=== PATIENT | female | born 1945 ===

== ENCOUNTER 2016-09-05 09:56 | Inpatient (IN) | payer MEDICAID, OTHER ==
[2016-09-05] MEDS ORDERED: Sodium Chloride 0.9% 1,000 ML IV STA (11:39)
[2016-09-05 12:23] LABS: BASO % 0.2 % (0.0-2.0); HEMATOCRIT 40.2 % (34.0-47.0); LYMPH # 1.4 K/uL (1.0-4.3); LYMPH % 8.4 % (20.0-40.0); MEAN CELL VOLUME 90.9 fl (81.0-99.0); MEAN CORPUSCULAR HEMOGLOBIN 29.5 pg (27.0-31.0); MEAN CORPUSCULAR HGB CONC 32.5 g/dL (33.0-37.0); MEAN PLATELET VOLUME 8.8 fl (7.2-11.7); MONO # 1.3 K/uL (0.0-0.8); MONO % 7.4 % (0.0-10.0); NEUT # 14.5 K/uL (1.8-7.0); NRBC % 0.1 % (0.0-0.0); PLATELET COUNT 185 K/uL (130-400); RED CELL DISTRIBUTION WIDTH 13.8 % (11.5-14.5); WHITE BLOOD COUNT 17.2 K/uL (4.8-10.8)
[2016-09-05 12:31] LABS: ALB/GLOB RATIO 0.9 (1.0-2.1); CALCIUM 9.5 mg/dL (8.4-10.2); POTASSIUM 4.6 MMOL/L (3.6-5.0); TOTAL PROTEIN 7.8 G/DL (6.3-8.2)
--- NOTE | 2016-09-05 12:36 | ED PDOC ---
Syncope/Near Syncope/Dizzyness Time Seen by Provider: 09/05/16 10:28 Chief Complaint (Nursing): Dizziness/Lightheaded Chief Complaint (Provider): Vomiting History Per: Patient History/Exam Limitations: no limitations Onset/Duration Of Symptoms: Hrs Current Symptoms Are (Timing): Still Present Fall Associated With With Symptoms: No Severity: Mild Additional Complaint(s): Patient is a 71 year old female, who has a history of diabetes, presents to the ED complaining of vomiting x2 days. Vomiting is associated with diarrhea, and dizziness. Patient is on insulin and did not take her medication last night. Patient has not check her sugar today or last night. Patient is visiting from [facility] for the week. PMD; none Past Medical History Reviewed: Historical Data, Nursing Documentation, Vital Signs Vital Signs: Last Vital Signs Temp 98 F 09/05/16 10:14 Pulse 66 09/05/16 10:14 Resp 17 09/05/16 10:14 BP 102/50 L 09/05/16 10:14 Pulse Ox 98 09/05/16 10:14 - Medical History PMH: HTN, Hypercholesterolemia - Surgical History Surgical History: No Surg Hx - Family History Family History: States: No Known Family Hx - Home Medications Home Medications: Ambulatory Orders Medication Instructions Recorded Aspirin 100 mg PO DAILY 09/05/16 Atenolol [Tenormin] 100 mg PO HS 09/05/16 Insulin NPH Human Isophane 15 unit SC QPM 09/05/16 [Novolin N] Levothyroxine [Synthroid] 50 mcg PO DAILY 09/05/16 Losartan [Cozaar] 100 mg PO DAILY 09/05/16 Simvastatin [Zocor] 20 mg PO QPM 09/05/16 metFORMIN [glucOPHAGE] 1.5 tab PO BID 09/05/16 - Allergies Allergies/Adverse Reactions: Allergies Allergy/AdvReac Type Severity Reaction Status Date / Time No Known Allergies Allergy Verified 09/05/16 10:14 Review of Systems ROS Statement: Except As Marked, All Systems Reviewed And Found Negative Constitutional: Negative for: Fever Gastrointestinal: Positive for: Vomiting, Diarrhea Neurological: Positive for: Dizziness Physical Exam - Reviewed Nursing Documentation Reviewed: Yes Vital Signs Reviewed: Yes - Physical Exam Appears: Positive for: Well, Non-toxic, No Acute Distress Head Exam: Positive for: ATRAUMATIC, NORMAL INSPECTION, NORMOCEPHALIC Skin: Positive for: Normal Color, Warm, DRY Eye Exam: Positive for: Normal appearance, EOMI Neck: Positive for: Normal, Painless ROM Cardiovascular/Chest: Positive for: Regular Rate, Rhythm. Negative for: Gallop , Murmur Respiratory: Positive for: Normal Breath Sounds. Negative for: Accessory Muscle Use, Rhonchi, Respiratory Distress Extremity: Positive for: Normal ROM Neurologic/Psych: Positive for: Alert, Oriented - Laboratory Results Result Diagrams: 09/08/16 06:40 09/09/16 06:00 - ECG O2 Sat by Pulse Oximetry: 98 (RA) Pulse Ox Interpretation: Normal Medical Decision Making Medical Decision Making: Time: 10:30 Impression: Dehydration v uncontrolled diabetes v Hyperglycemia v r/o DKA v UTI with possible sepsis Plan: ABG VBG EKG UDip CBC IVF Zofran 4 mg IV Blood Culture UA Zosyn IV Scribe Attestation: Documented by Jamil Lutz acting as a scribe for Yu Horvath MD. Scribe Attestation: All medical record entries made by the Scribe were at my direction and personally dictated by me. I have reviewed the chart and agree that the record accurately reflects my personal performance of the history, physical exam, medical decision making, and the department course for this patient. I have also personally directed, reviewed, and agree with the discharge instructions and disposition. Disposition - Clinical Impression Clinical Impression: Acute renal failure, Dehydration, Hyperglycemia due to type 2 diabetes mellitus , Sepsis - Patient ED Disposition Is Patient to be Admitted: Yes Discussed With : Mukund Fontana Doctor Will See Patient In The: ED Counseled Patient/Family Regarding: Studies Performed, Diagnosis - Disposition Disposition Time: 22:08 Condition: FAIR - Pt Status Changed To: Hospital Disposition Of: Inpatient - Admit Certification Admit to Inpatient:: After my assessment, the patient will require hospitalization for at least two midnights. This is because of the severity of symptoms shown, intensity of services needed, and/or the medical risk in this patient being treated as an outpatient. - POA Present On Arrival: Poor Glycemic Control
[2016-09-05 12:53] LABS: ABG ALLEN TEST YES; ARTERIAL BLOOD GAS HCO3 15.8 mmol/L (21-28); ARTERIAL BLOOD GAS PH 7.34 (7.35-7.45); ARTERIAL BLOOD GAS PO2 130 mm/Hg (80-100)
[2016-09-05] MEDS ORDERED: Piperacillin/Tazobact 3.375 GM in Sodium Chloride 0.9% 100 ML IVPB STA (12:56)
[2016-09-05 13:18] LABS: LARGE PLATELETS PRESENT; NEUTROPHIL 67 % (42-75); TOTAL CELLS COUNTED 100
[2016-09-05] MEDS ORDERED: Piperacillin/Tazobact 3.375 gm Inj IVPB ONE (13:35)
[2016-09-05] MEDS ORDERED: Sodium Chloride 0.9% 1,000 ML IV SCH ×2 (15:30→23:45)
--- NOTE | 2016-09-05 17:13 | RAD ---
HISTORY: septic work up COMPARISON: No prior. TECHNIQUE: Chest PA and lateral FINDINGS: LUNGS: . There appears to be some minimal bibasilar atelectasis. PLEURA: No significant pleural effusion identified. No pneumothorax apparent. CARDIOVASCULAR: Normal. OSSEOUS STRUCTURES: Minor multilevel degenerative spondylosis of the thoracic spine VISUALIZED UPPER ABDOMEN: Normal. OTHER FINDINGS: None. IMPRESSION: There appears be minimal bibasilar atelectasis.
--- NOTE | 2016-09-05 17:25 | US ---
PROCEDURE: Ultrasound of the Kidneys HISTORY: acute kidney failure COMPARISON: None available. TECHNIQUE: Sonogram of the kidneys. FINDINGS: RIGHT KIDNEY: Measures: 9.9 x 4.2 x 4.6 cm . Normal in size, contour and echogenicity. No stone, solid mass lesion or hydronephrosis visualized. LEFT KIDNEY: Measures: 9.6 x 3.8 x 4.5 cm. Normal in size, contour and echogenicity. Note is made of a small echogenic focus lower pole left kidney that measures 4.2 x 3.6 x 2.3 mm. This could represent nonobstructing calculus. OTHER FINDINGS: Incidental note made of a large hyperechoic lesion within the right lobe liver of uncertain etiology. . Recommend followup triple phase CT scan of the liver for further evaluation. IMPRESSION: Small echogenic focus lower pole left kidney likely representing a nonobstructing calculus. Large hyperechoic lesion within the right lobe liver Findings discussed with Dr. Fontana at 5:23 p.m. with written down and read back verification.
--- NOTE | 2016-09-05 17:47 | CP.PCM.HP ---
History of Present Illness - History of Present Illness History of Present Illness: 71 yo female with history of DM2 and HTN just arrived from [facility] last Sunday started to have multiple bouts of vomiting and diarrhea since yesterday. Some of her vomitus was positive for a few amounts of blood. She also has been having fever accompanied with diaphoresis and lower abdominal pain. She denied dysuria but has not urinated since yesterday probably because of very poor oral intake. Daughter claimed she was well when she arrived last Sunday. She denied chest pain, SOB or coughing. She was apparently well aside from her diabetes and HTN during her check up about 6 months ago in [facility]. Present on Admission - Present on Admission Any Indicators Present on Admission: No History of DVT/PE: No History of Uncontrolled Diabetes: No Urinary Catheter: No Decubitus Ulcer Present: No Review of Systems - Review of Systems All systems: reviewed and no additional remarkable complaints except (aside from those mentioned above, 12 point system review were negative by me) Past Patient History - Past Social History Smoking Status: Never Smoked Chewing Tobacco Use: No Cigar Use: No Alcohol: None Drugs: Denies Home Situation {Lives}: With Family - CARDIAC Hx Hypercholesterolemia: Yes Hx Hypertension: Yes - ENDOCRINE/METABOLIC Hx Diabetes Mellitus Type 2: Yes - PSYCHIATRIC Hx Substance Use: No - SURGICAL HISTORY Hx Section: Yes - ANESTHESIA Hx Anesthesia: Yes Hx Anesthesia Reactions: No Meds Allergies/Adverse Reactions: Allergies Allergy/AdvReac Type Severity Reaction Status Date / Time No Known Allergies Allergy Verified 09/05/16 10:14 Physical Exam - Constitutional Appears: No Acute Distress - Head Exam Head Exam: ATRAUMATIC - Eye Exam Eye Exam: absent: Scleral icterus - ENT Exam ENT Exam: Mucous Membranes Moist - Neck Exam Neck exam: Negative for: Meningismus - Respiratory Exam Respiratory Exam: absent: Rhonchi, Wheezes, Respiratory Distress - Cardiovascular Exam Cardiovascular Exam: REGULAR RHYTHM, +S1, +S2 - GI/Abdominal Exam GI & Abdominal Exam: Soft, Tenderness (mild/moderate tenderness on lower abdomen ) - Rectal Exam Rectal Exam: Deferred - Extremities Exam Extremities exam: Negative for: pedal edema - Back Exam Back exam: absent: tenderness - Neurological Exam Neurological exam: Alert, Oriented x3 - Psychiatric Exam Psychiatric exam: Normal Affect - Skin Skin Exam: Dry, Intact Results - Vital Signs Recent Vital Signs: Last Vital Signs Temp 99.1 F 09/05/16 17:18 Pulse 63 09/05/16 17:18 Resp 16 09/05/16 17:18 BP 102/50 L 09/05/16 10:14 Pulse Ox 97 09/05/16 17:18 - Labs Result Diagrams: 09/05/16 12:09 09/05/16 12:09 Assessment & Plan (1) Sepsis Status: Acute Comment: admit to telemetry. blood culture, urine culture, stool culture. CXray. Zosyn 2.25gm IV q 8hrs. repeat serum Lactic Acid. ID consult with Dr Herron (2) Dehydration Status: Acute Comment: IV hydration with NSS 250cc/hr (3) Acute renal failure Status: Acute Comment: probably acute on chronic renal failure. Vigorous IV hydration. renal consult with Dr Negron. repeat BMP in am (4) DM2 (diabetes mellitus, type 2) Status: Acute Comment: accuchek ACHS with low Lispro. HgA1C, BMP in am (5) HTN (hypertension) Status: Acute Comment: presently hypotensive because of fluid loss from diarrhea and vomiting. vigorous IV hydration with NSS. hold all BP meds (6) Liver mass, right lobe Status: Acute Comment: r/o malignancy. GI consult with Dr Prado (7) Colitis Status: Acute Comment: CT scan showed mass or wall thickening in the rectum and wall thickening in the hepatic flexure. continue renal dose of Zosyn. GI consult with Dr Prado (8) DVT prophylaxis Status: Acute Comment: venodyne boots while in bed
--- NOTE | 2016-09-05 18:31 | CT ---
PROCEDURE: CT Abdomen and Pelvis without intravenous contrast HISTORY: lower abdominal pain accompanied with fever COMPARISON: Comparison is made to the previous same-day ultrasound of the kidneys. TECHNIQUE: Axial and reformatted coronal and sagittal CT images of the abdomen and pelvis were obtained without IV or oral contrast administration.. Contrast Dose: 0 IV chondral Radiation dose: Total exam DLP = 482.06 mGy-cm. This CT exam was performed using one or more of the following dose reduction techniques: Automated exposure control, adjustment of the mA and/or kV according to patient size, and/or use of iterative reconstruction technique. FINDINGS: LOWER THORAX: 6 millimeter calcified nodule at the right lower lobe. No evidence of acute pathology at the lung bases. LIVER: Large heterogeneous low-attenuation mass lesions in the right liver lobe. The possibility of metastasis in the liver should be considered. GALLBLADDER AND BILE DUCTS: No evidence of acute cholecystitis. PANCREAS: Unremarkable. No gross lesion or ductal dilatation. SPLEEN: Unremarkable. ADRENALS: Unremarkable. No mass. KIDNEYS AND URETERS: Unremarkable. No hydronephrosis. No solid mass. VASCULATURE: Unremarkable. No aortic aneurysm. BOWEL: Suboptimal assessment of the bowel without oral contrast administration. Suspicious for mass lesion or wall thickening in the rectum. There is also suspicious for wall thickening versus incomplete distention at the hepatic flexure. Further assessment of the large bowel by barium enema or colonoscopy is suggested. No evidence of small bowel obstruction. APPENDIX: No evidence of appendicitis. PERITONEUM: Unremarkable. No free fluid. No free air. LYMPH NODES: Unremarkable. No enlarged lymph nodes. BLADDER: Unremarkable. REPRODUCTIVE: Unremarkable. BONES: No acute fracture. OTHER FINDINGS: None. IMPRESSION: Large slightly low-attenuation mass lesions in the right liver lobe suspicious for neoplasm, may represent liver metastasis. Suboptimal assessment of the GI system without oral contrast administration. Suspicious for mass lesion or wall thickening at the rectum and hepatic flexure. Further assessment of the large bowel by barium enema or colonoscopy is suggested. No evidence of nephrolithiasis or hydronephrosis.
[2016-09-05] MEDS: Sodium Chloride 0.9% 1,000 ML IV SCH (22:40)
[2016-09-06] MEDS ORDERED: Sodium Chloride 0.9% 1,000 ML IV SCH (01:00)
[2016-09-06] MEDS: Sodium Chloride 0.9% 1,000 ML IV SCH ×3 (02:25→10:52)
[2016-09-06 06:59] LABS: BASO # 0.1 K/uL (0.0-0.2); BASO % 0.5 % (0.0-2.0); EOS % 0.3 % (0.0-4.0); HEMATOCRIT 36.8 % (34.0-47.0); LYMPH # 1.5 K/uL (1.0-4.3); LYMPH % 12.6 % (20.0-40.0); MEAN CELL VOLUME 91.7 fl (81.0-99.0); MEAN CORPUSCULAR HEMOGLOBIN 29.1 pg (27.0-31.0); MEAN CORPUSCULAR HGB CONC 31.8 g/dL (33.0-37.0); MEAN PLATELET VOLUME 9.3 fl (7.2-11.7); MONO # 1.1 K/uL (0.0-0.8); MONO % 8.9 % (0.0-10.0); NEUT # 9.5 K/uL (1.8-7.0); NEUT % 77.7 % (50.0-75.0); WHITE BLOOD COUNT 12.2 K/uL (4.8-10.8)
[2016-09-06 07:23] LABS: CALCIUM 7.2 mg/dL (8.4-10.2)
[2016-09-06 07:28] LABS: PARTIAL THROMBOPLASTIN TIME 28.5 SECONDS (23.3-32.5)
[2016-09-06 07:37] LABS: THYROID STIMULATING HORMONE 0.69 mIU/ML (0.46-4.68)
--- NOTE | 2016-09-06 11:07 | CP.PCM.CON ---
<Hilda Klein - Last Filed: 09/06/16 11:36> History of Present Illness - History of Present Illness History of Present Illness: This is a GI Consult Note:Dr. Prado CC: diarrhea HPI: Ptis a 71y/o female with history of DM2 and HTN who was admitted to [facility] 09/05/16. Pt was seen and examined at bedside this morning with attending, Pt daugther was present for this evaluation. Per Pt's daughter, pt just arrived from [facility] Sunday started to have multiple bouts of vomiting and diarrhea since yesterday. Some of her vomitus was positive for a few amounts of blood. She also has been having fever accompanied with diaphoresis and lower abdominal pain on Sunday. Daughter is very concerned as pt has not urinated since yesterday. Daughter claimed she was well when she arrived last Sunday. She denied chest pain, SOB or coughing. She was apparently well aside from her diabetes and HTN during her check up about 6 months ago in [facility]. Pt reports having some blood in her stools on and off for about month, denies any history of liver disease or family history of liver disease. Currently she has some mild abdominal pain, other than no other complaints. PMHX: DM2 and hypertension PSHX: Famhx-denies any Family hx of liver diseases, or other GI problems Social- denies smoking, drinking Allergies- NKDA Review of Systems - Review of Systems All systems: reviewed and no additional remarkable complaints except Review of Systems: Review of system: all negative except as stated in HPI Past Patient History - Past Medical History & Family History Past Medical History?: Yes - Past Social History Smoking Status: Never Smoked - CARDIAC Hx Cardiac Disorders: Yes Hx Hypercholesterolemia: Yes Hx Hypertension: Yes - PULMONARY Hx Respiratory Disorders: No - NEUROLOGICAL Hx Neurological Disorder: No - HEENT Hx HEENT Problems: No - RENAL Hx Chronic Kidney Disease: No - ENDOCRINE/METABOLIC Hx Endocrine Disorders: Yes Hx Diabetes Mellitus Type 2: Yes - HEMATOLOGICAL/ONCOLOGICAL Hx Blood Disorders: No Hx AIDS: No Hx Human Immunodeficiency Virus (HIV): No - INTEGUMENTARY Hx Dermatological Problems: No - MUSCULOSKELETAL/RHEUMATOLOGICAL Hx Musculoskeletal Disorders: No Hx Falls: Yes - GASTROINTESTINAL Hx Gastrointestinal Disorders: No - GENITOURINARY/GYNECOLOGICAL Hx Genitourinary Disorders: No - PSYCHIATRIC Hx Psychophysiologic Disorder: No Hx Substance Use: No - SURGICAL HISTORY Hx Surgeries: Yes Hx Section: Yes - ANESTHESIA Hx Anesthesia: Yes Hx Anesthesia Reactions: No Meds Allergies/Adverse Reactions: Allergies Allergy/AdvReac Type Severity Reaction Status Date / Time No Known Allergies Allergy Verified 09/05/16 10:14 - Medications Medications: Current Medications Sodium Chloride (Sodium Chloride 0.9%) 1,000 mls @ 250 mls/hr IV .Q4H [facility] Last Admin: 09/06/16 10:52 Dose: Not Given Piperacillin Sod/Tazobactam (Sod 2.25 gm/ Sodium Chloride) 100 mls @ 100 mls/ hr IVPB Q8 [facility] Last Admin: 09/06/16 10:00 Dose: 100 mls/hr Morphine Sulfate (Morphine) 2 mg IVP Q6 PRN PRN Reason: Pain, moderate (4-7) Ondansetron HCl (Zofran Inj) 4 mg IVP Q6 PRN PRN Reason: Nausea/Vomiting Physical Exam - Constitutional Appears: No Acute Distress - Head Exam Head Exam: NORMOCEPHALIC - Eye Exam Eye Exam: Normal appearance - ENT Exam ENT Exam: Mucous Membranes Moist - Respiratory Exam Respiratory Exam: Clear to Auscultation Bilateral, NORMAL BREATHING PATTERN. absent: Rhonchi, Wheezes - Cardiovascular Exam Cardiovascular Exam: REGULAR RHYTHM, +S1, +S2 - GI/Abdominal Exam GI & Abdominal Exam: Normal Bowel Sounds, Soft, Tenderness - Extremities Exam Extremities exam: Positive for: normal inspection. Negative for: calf tenderness, pedal edema - Neurological Exam Neurological exam: Alert, Oriented x3 Results - Vital Signs Recent Vital Signs: Last Vital Signs Temp 97.5 F L 09/06/16 08:22 Pulse 54 L 09/06/16 08:22 Resp 20 09/06/16 08:22 BP 91/37 L 09/06/16 08:22 Pulse Ox 95 09/06/16 08:22 - Labs Result Diagrams: 09/06/16 05:30 09/06/16 05:30 Labs: Laboratory Results - last 24 hr 09/05/16 09/05/16 09/06/16 16:45 21:58 05:20 WBC RBC Hgb Hct MCV MCH MCHC RDW Plt Count MPV Neut % (Auto) Lymph % (Auto) [place] % (Auto) Eos % (Auto) Baso % (Auto) Neut # Lymph # [place] # Eos # Baso # PT INR APTT Sodium Potassium Chloride Carbon Dioxide Anion Gap BUN Creatinine Est GFR ( Amer) Est GFR (Non-Af Amer) POC Glucose (mg/dL) 103 90 Random Glucose Hemoglobin A1c Lactic Acid 1.6 Calcium TSH 3rd Generation 09/06/16 09/06/16 09/06/16 05:30 05:30 05:30 WBC 12.2 H RBC 4.02 Hgb 11.7 L Hct 36.8 MCV 91.7 MCH 29.1 MCHC 31.8 L RDW 14.0 Plt Count 152 MPV 9.3 Neut % (Auto) 77.7 H Lymph % (Auto) 12.6 L [place] % (Auto) 8.9 Eos % (Auto) 0.3 Baso % (Auto) 0.5 Neut # 9.5 H Lymph # 1.5 [place] # 1.1 H Eos # 0.0 Baso # 0.1 PT 12.4 H INR 1.19 H APTT 28.5 Sodium 136 Potassium 4.0 Chloride 113 H Carbon Dioxide 10 L* D Anion Gap 17 BUN 71 H Creatinine 5.9 H Est GFR ( Amer) 9 Est GFR (Non-Af Amer) 7 POC Glucose (mg/dL) Random Glucose 92 Hemoglobin A1c Lactic Acid Calcium 7.2 L TSH 3rd Generation 0.69 09/06/16 05:30 WBC RBC Hgb Hct MCV MCH MCHC RDW Plt Count MPV Neut % (Auto) Lymph % (Auto) [place] % (Auto) Eos % (Auto) Baso % (Auto) Neut # Lymph # [place] # Eos # Baso # PT INR APTT Sodium Potassium Chloride Carbon Dioxide Anion Gap BUN Creatinine Est GFR ( Amer) Est GFR (Non-Af Amer) POC Glucose (mg/dL) Random Glucose Hemoglobin A1c 7.2 H Lactic Acid Calcium TSH 3rd Generation Assessment & Plan - Assessment and Plan (Free Text) Assessment: Pt is a 71 y/o female history of Non insulin dependent Type II diabetes and Hypertension, admitted for sepsis due to colitis, currently being treated with zosyn, also found to be in MIGUEL, and finding of mass in liver and possible mass/ thickening in rectum and hepatic flexure. GI is consulted for the liver mass and mass/thickening in rectum and hepatic flexure Plan: Mass in the right lobe of the liver first assess for chronic liver disease: hepatitis A, B,C ordered, labs to rule out autoimmune hepatitis ordered (ESAU, anti-smooth muscle, mitochondria AB,immunoglobulin A, G, M) Iron studies to rule out hemochromatosis ordered Ultrasound with doppler to assess portal vein ordered AFP tumor marker ordered Pt will need a 3-phase Ct scan and biopsy of liver,but given pt current medical status and kidney function, we will continue to monitor pt and make decisions as pt progress medically 2. Thickening/Mass in the rectum and hepatic flexure pt will benefit from colonoscopy once she is medically stable once her kidney function improves and pt is medically stable, we will discuss arrangement for colonoscopy 3. Diarrhea f/u stool culture f/u ova and parasite f/u C-diff toxin We will follow along on this case. Thank you for the consult <Roberto Quick - Last Filed: 09/06/16 12:04> Meds - Medications Medications: Current Medications Sodium Chloride (Sodium Chloride 0.9%) 1,000 mls @ 250 mls/hr IV .Q4H [facility] Last Admin: 09/06/16 10:52 Dose: Not Given Piperacillin Sod/Tazobactam (Sod 2.25 gm/ Sodium Chloride) 100 mls @ 100 mls/ hr IVPB Q8 [facility] Last Admin: 09/06/16 10:00 Dose: 100 mls/hr Morphine Sulfate (Morphine) 2 mg IVP Q6 PRN PRN Reason: Pain, moderate (4-7) Ondansetron HCl (Zofran Inj) 4 mg IVP Q6 PRN PRN Reason: Nausea/Vomiting Results - Vital Signs Recent Vital Signs: Last Vital Signs Temp 97.5 F L 09/06/16 08:22 Pulse 54 L 09/06/16 08:22 Resp 20 09/06/16 08:22 BP 91/37 L 09/06/16 08:22 Pulse Ox 95 09/06/16 08:22 - Labs Result Diagrams: 09/06/16 05:30 09/06/16 05:30 Labs: Laboratory Results - last 24 hr 09/05/16 09/05/16 09/06/16 16:45 21:58 05:20 WBC RBC Hgb Hct MCV MCH MCHC RDW Plt Count MPV Neut % (Auto) Lymph % (Auto) [place] % (Auto) Eos % (Auto) Baso % (Auto) Neut # Lymph # [place] # Eos # Baso # PT INR APTT Sodium Potassium Chloride Carbon Dioxide Anion Gap BUN Creatinine Est GFR ( Amer) Est GFR (Non-Af Amer) POC Glucose (mg/dL) 103 90 Random Glucose Hemoglobin A1c Lactic Acid 1.6 Calcium TSH 3rd Generation 09/06/16 09/06/16 09/06/16 05:30 05:30 05:30 WBC 12.2 H RBC 4.02 Hgb 11.7 L Hct 36.8 MCV 91.7 MCH 29.1 MCHC 31.8 L RDW 14.0 Plt Count 152 MPV 9.3 Neut % (Auto) 77.7 H Lymph % (Auto) 12.6 L [place] % (Auto) 8.9 Eos % (Auto) 0.3 Baso % (Auto) 0.5 Neut # 9.5 H Lymph # 1.5 [place] # 1.1 H Eos # 0.0 Baso # 0.1 PT 12.4 H INR 1.19 H APTT 28.5 Sodium 136 Potassium 4.0 Chloride 113 H Carbon Dioxide 10 L* D Anion Gap 17 BUN 71 H Creatinine 5.9 H Est GFR ( Amer) 9 Est GFR (Non-Af Amer) 7 POC Glucose (mg/dL) Random Glucose 92 Hemoglobin A1c Lactic Acid Calcium 7.2 L TSH 3rd Generation 0.69 09/06/16 05:30 WBC RBC Hgb Hct MCV MCH MCHC RDW Plt Count MPV Neut % (Auto) Lymph % (Auto) [place] % (Auto) Eos % (Auto) Baso % (Auto) Neut # Lymph # [place] # Eos # Baso # PT INR APTT Sodium Potassium Chloride Carbon Dioxide Anion Gap BUN Creatinine Est GFR ( Amer) Est GFR (Non-Af Amer) POC Glucose (mg/dL) Random Glucose Hemoglobin A1c 7.2 H Lactic Acid Calcium TSH 3rd Generation Attending/Attestation - Attestation I have personally seen and examined this patient.: Yes I have fully participated in the care of the patient.: Yes I have reviewed all pertinent clinical information: Yes Notes (Text): 09/06/16 11:59 71 year old female with h/o DM, HTN who presents with abdominal pain, diarrhea, and acute renal failure, found to have liver lesions and possible colitis. 1. Liver lesions 2. Diarrhea 3. Abnormal CT scan of the GI tract, colon Plan: -currently the most acute issue is acute renal failure, uncertain etiology -the patient is anuric with worsening acidosis -she is receiving IV fluids at 250 cc an hour and awaiting a nephrology consultation -she doesn't appear to have signs of chronic liver disease to suggest that this could be hepatorenal syndrome, so do not suspect this -await nephrology input -regarding the liver lesions, ddx includes HCC, cholangiocarcinoma, metastatic lesions from colon, and bengin liver lesions like adenoma/FNH -recommend US abdomen with dopplers for now -recommend triple phase CT of liver if able to give contrast later in the hospital course, or alternatively an MRI -may need liver biopsy eventually when medically stable -recommend workup for chronic liver diseases including viral hepatitis and autoimmune serologies -check AFP -check stool studies for infectious causes of diarrhea and colitis -elective colonoscopy or sigmoidoscopy would be recommended to evaluate further , however again, patient is not medically stable for this with acute anuric renal failure and acidosis, so will wait until she is stable -will follow -discussed with the patient and her daughter using slovenian pediatric speech language pathologist
--- NOTE | 2016-09-06 11:42 | CARD ---
APPROVED REPORT EKG Measurement Heart [id number] <Conclusion> Normal sinus rhythm Nonspecific ST and T wave abnormality Abnormal ECG
--- NOTE | 2016-09-06 12:41 | CP.PCM.CON ---
History of Present Illness - History of Present Illness History of Present Illness: This patient who is 71 years old came in with diarrhea [facility] and she was fond to have abnormal kidney function was rising BUN/creatinine for which I was called to see her for further evaluation Daughter stated that she is having severe diarrhea and nausea vomited couple time. Although she is not aware of history of chronic kidney disease and she is diabetic for a long time and she take insulin and among other medications Past medical history as noted diabetes mellitus Review of Systems - Constitutional Constitutional: As Per HPI - EENT Eyes: As Per HPI - Cardiovascular Cardiovascular: absent: Chest Pain, Dyspnea, Leg Edema, Syncope - Respiratory Respiratory: absent: Cough, Hemoptysis, Dyspnea on Exertion - Gastrointestinal Gastrointestinal: Abdominal Pain, Diarrhea, Nausea, Vomiting - Genitourinary Genitourinary: As Per HPI, Other - Musculoskeletal Musculoskeletal: Muscle Weakness - Neurological Neurological: As Per HPI - Psychiatric Psychiatric: As Per HPI - Endocrine Endocrine: As Per HPI - Hematologic/Lymphatic Hematologic: As Per HPI Past Patient History - Past Medical History & Family History Past Medical History?: Yes - Past Social History Smoking Status: Never Smoked - CARDIAC Hx Cardiac Disorders: Yes Hx Hypercholesterolemia: Yes Hx Hypertension: Yes - PULMONARY Hx Respiratory Disorders: No - NEUROLOGICAL Hx Neurological Disorder: No - HEENT Hx HEENT Problems: No - RENAL Hx Chronic Kidney Disease: No - ENDOCRINE/METABOLIC Hx Endocrine Disorders: Yes Hx Diabetes Mellitus Type 2: Yes - HEMATOLOGICAL/ONCOLOGICAL Hx Blood Disorders: No Hx AIDS: No Hx Human Immunodeficiency Virus (HIV): No - INTEGUMENTARY Hx Dermatological Problems: No - MUSCULOSKELETAL/RHEUMATOLOGICAL Hx Musculoskeletal Disorders: No Hx Falls: Yes - GASTROINTESTINAL Hx Gastrointestinal Disorders: No - GENITOURINARY/GYNECOLOGICAL Hx Genitourinary Disorders: No - PSYCHIATRIC Hx Psychophysiologic Disorder: No Hx Substance Use: No - SURGICAL HISTORY Hx Surgeries: Yes Hx Section: Yes - ANESTHESIA Hx Anesthesia: Yes Hx Anesthesia Reactions: No Meds Allergies/Adverse Reactions: Allergies Allergy/AdvReac Type Severity Reaction Status Date / Time No Known Allergies Allergy Verified 09/05/16 10:14 - Medications Medications: Current Medications Sodium Chloride (Sodium Chloride 0.9%) 1,000 mls @ 250 mls/hr IV .Q4H [facility] Last Admin: 09/06/16 10:52 Dose: Not Given Piperacillin Sod/Tazobactam (Sod 2.25 gm/ Sodium Chloride) 100 mls @ 100 mls/ hr IVPB Q8 [facility] Last Admin: 09/06/16 10:00 Dose: 100 mls/hr Sodium Bicarbonate 44.6 meq/ (Dextrose/Sodium Chloride) 1,044.6 mls @ 250 mls/ hr IV .Q4H11M [facility] Stop: 09/07/16 12:30 Morphine Sulfate (Morphine) 2 mg IVP Q6 PRN PRN Reason: Pain, moderate (4-7) Ondansetron HCl (Zofran Inj) 4 mg IVP Q6 PRN PRN Reason: Nausea/Vomiting Physical Exam - Constitutional Appears: No Acute Distress - Eye Exam Eye Exam: Normal appearance - ENT Exam ENT Exam: Mucous Membranes Dry - Respiratory Exam Respiratory Exam: NORMAL BREATHING PATTERN. absent: Chest Wall Tenderness - Cardiovascular Exam Cardiovascular Exam: REGULAR RHYTHM. absent: Rubs - GI/Abdominal Exam GI & Abdominal Exam: Normal Bowel Sounds - Extremities Exam Extremities exam: Negative for: calf tenderness - Back Exam Back exam: absent: CVA tenderness (L), CVA tenderness (R) - Neurological Exam Neurological exam: Alert Results - Vital Signs Recent Vital Signs: Last Vital Signs Temp 97.5 F L 09/06/16 08:22 Pulse 54 L 09/06/16 08:22 Resp 20 09/06/16 08:22 BP 91/37 L 09/06/16 08:22 Pulse Ox 95 09/06/16 08:22 - Labs Result Diagrams: 09/06/16 05:30 09/06/16 05:30 Labs: Laboratory Results - last 24 hr 09/05/16 09/05/16 09/06/16 16:45 21:58 05:20 WBC RBC Hgb Hct MCV MCH MCHC RDW Plt Count MPV Neut % (Auto) Lymph % (Auto) [place] % (Auto) Eos % (Auto) Baso % (Auto) Neut # Lymph # [place] # Eos # Baso # PT INR APTT Sodium Potassium Chloride Carbon Dioxide Anion Gap BUN Creatinine Est GFR ( Amer) Est GFR (Non-Af Amer) POC Glucose (mg/dL) 103 90 Random Glucose Hemoglobin A1c Lactic Acid 1.6 Calcium TSH 3rd Generation 09/06/16 09/06/16 09/06/16 05:30 05:30 05:30 WBC 12.2 H RBC 4.02 Hgb 11.7 L Hct 36.8 MCV 91.7 MCH 29.1 MCHC 31.8 L RDW 14.0 Plt Count 152 MPV 9.3 Neut % (Auto) 77.7 H Lymph % (Auto) 12.6 L [place] % (Auto) 8.9 Eos % (Auto) 0.3 Baso % (Auto) 0.5 Neut # 9.5 H Lymph # 1.5 [place] # 1.1 H Eos # 0.0 Baso # 0.1 PT 12.4 H INR 1.19 H APTT 28.5 Sodium 136 Potassium 4.0 Chloride 113 H Carbon Dioxide 10 L* D Anion Gap 17 BUN 71 H Creatinine 5.9 H Est GFR ( Amer) 9 Est GFR (Non-Af Amer) 7 POC Glucose (mg/dL) Random Glucose 92 Hemoglobin A1c Lactic Acid Calcium 7.2 L TSH 3rd Generation 0.69 09/06/16 05:30 WBC RBC Hgb Hct MCV MCH MCHC RDW Plt Count MPV Neut % (Auto) Lymph % (Auto) [place] % (Auto) Eos % (Auto) Baso % (Auto) Neut # Lymph # [place] # Eos # Baso # PT INR APTT Sodium Potassium Chloride Carbon Dioxide Anion Gap BUN Creatinine Est GFR ( Amer) Est GFR (Non-Af Amer) POC Glucose (mg/dL) Random Glucose Hemoglobin A1c 7.2 H Lactic Acid Calcium TSH 3rd Generation Assessment & Plan (1) Acute renal failure Assessment and Plan: It appeared that she has acute kidney failure probably from severe hypovolemia patient still hypovolemic and Metabolic acidosis Patient to continue with hydration she will need D5 half-normal saline with 1 amp of sodium bicarbonate at 250 mL/h 2. Alfaro catheter to see if there is a urine and urinalysis stat CAT scan of the abdomen showed possible malignancy in the liver also in the colon If kidney function is continued to deteriorate we will do dialysis perhaps by tomorrow Continue monitoring electrolytes and kidney function closely I ordered a stat Spot urine for sodium osmolality and creatinine Status: Acute
--- NOTE | 2016-09-06 12:44 | CP.PCM.CON ---
History of Present Illness - History of Present Illness History of Present Illness: 71 yo female with history of DM2 and HTN just arrived from [facility] last Sunday started to have multiple bouts of vomiting and diarrhea since yesterday.. She also has been having fever accompanied with diaphoresis and lower abdominal pain. She denied dysuria PMH + HTN + DMII Review of Systems - Constitutional Constitutional: As Per HPI - EENT Eyes: absent: As Per HPI, Blind Spots, Blurred Vision, Change in Vision, Decreased Night Vision, Diplopia, Discharge, Dry Eye, Exophthalmos, Floaters, Irritation, Itchy Eyes, Loss of Peripheral Vision, Pain, Photophobia, Requires Corrective Lenses, Sees Flashes, Spots in Vision, Tunnel Vision, Other Visual Disturbances, Loss of Vision, Other Ears: absent: As Per HPI, Decreased Hearing, Ear Discharge, Ear Pain, Tinnitus, Abnormal Hearing, Disequilibrium, Dizziness, Other Nose/Mouth/Throat: absent: As Per HPI, Epistaxis, Nasal Congestion, Nasal Discharge, Nasal Obstruction, Nasal Trauma, Nose Pain, Post Nasal Drip, Sinus Pain, Sinus Pressure, Bleeding Gums, Change in Voice, Dental Pain, Dry Mouth, Dysphagia, Halitosis, Hoarsness, Lip Swelling, Mouth Lesions, Mouth Pain, Odynophagia, Sore Throat, Throat Swelling, Tongue Swelling, Facial Pain, Neck Pain, Neck Mass, Other - Breasts Breasts: absent: As Per HPI, Change in Shape, Mass, Pain, Nipple Discharge, Nipple Inversion, Skin Changes, Swelling, Other - Cardiovascular Cardiovascular: absent: As Per HPI, Acrocyanosis, Chest Pain, Chest Pain at Rest , Chest Pain with Activity, Claudication, Diaphoresis, Dyspnea, Dyspnea on Exertion, Edema, Irregular Heart Rhythm, Pain Radiating to Arm/Neck/Jaw, Leg Edema, Leg Ulcers, Lightheadedness, Orthopnea, Palpitations, Paroxysmal Nocturnal Dyspnea, Pedal Edema, Radiating Pain, Rapid Heart Rate, Slow Heart Rate, Syncope, Other - Respiratory Respiratory: absent: As Per HPI, Cough, Dyspnea, Hemoptysis, Dyspnea on Exertion , Wheezing, Snoring, Stridor, Pain on Inspiration, Chest Congestion, Excessive Mucous Production, Change in Mucous Color, Pain with Coughing, Other - Gastrointestinal Gastrointestinal: As Per HPI - Genitourinary Genitourinary: As Per HPI - Reproductive: Female Reproductive:Female: absent: As Per HPI, Amenorrhea, Amenorrhea/ Control, Currently Menstual, Cycle <21 Days, Cycle >35 Days, Cycle Variable, Menses 1-7 Days, Menses >/= 8 Days, Menses Variable, Cycle > 4 Weeks Between, No Menses for 6 Months, Heavy Menses, Light Menses, Normal Menses, Spotting Between Cycles , S/P Hysterectomy, Menopausal, Post Menopausal, Premenarche, Abnormal Vaginal Bleeding, Dysmenorrhea, Dyspareunia, Genital Lesions, Genital Pruritis, Pelvic Pain, Prolapse Symptoms, Sexual Dysfunction, Vaginal Discharge, Vaginal Dryness , Vaginal Odor, Vaginal Pruritis, Other - Menstruation Menstruation: absent: As Per HPI, Amenorrhea, Amenorrhea/ Control, Currently Menstual, Cycle <21 Days, Cycle >35 Days, Cycle Variable, Menses 1-7 Days, Menses >/= 8 Days, Menses Variable, Cycle > 4 Weeks Between, No Menses for 6 Months, Heavy Menses, Light Menses, Normal Menses, Spotting Between Cycles , S/P Hysterectomy, Menopausal, Post Menopausal, Premenarche, Abnormal Vaginal Bleeding, Dysmenorrhea, Other - Musculoskeletal Musculoskeletal: absent: As Per HPI, Abnormal Gait, Arthralgias, Atrophy, Back Pain, Deformity, Joint Swelling, Limited Range of Motion, Loss of Height, Muscle Cramps, Muscle Weakness, Myalgias, Neck Pain, Numbness, Radiating Pain into Limb, Stiffness, Tingling, Other - Integumentary Integumentary: absent: As Per HPI, Acne, Alopecia, Bleeding Lesions, Change in Hair, Change in Nails, Change in Pigmentation, Changing Lesions, Dry Skin, Erythema, Furuncle, Hirsutism, Lesions, New Lesions, Non-Healing Lesions, Photosensitivity, Pruritus, Rash, Skin Pain, Skin Ulcer, Sores, Striae, Swelling , Unusual Bruising, Wounds, Jaundice, Other - Neurological Neurological: absent: As Per HPI, Abnormal Gait, Abnormal Hearing, Abnormal Movements, Abnormal Speech, Behavioral Changes, Burning Sensations, Confusion, Convulsions, Disequilibrium, Dizziness, Numbness, Focal Weakness, Frequent Falls , Headaches, Lack of Coordination, Loss of Vision, Memory Loss, Paresthesias, Radicular Pain, Restless Legs, Sensory Deficit, Syncope, Tingling, Tremor, Vertigo, Weakness, Other Visual Disturbances, Other - Psychiatric Psychiatric: absent: As Per HPI, Abnormal Sleep Pattern, Anhedonia, Anxiety, Auditory Hallucinations, Behavioral Changes, Change in Appetite, Change in Libido, Confusion, Depression, Difficulty Concentrating, Hallucinations, Homicidal Ideation, Hopelessness, Irritability, Memory Loss, Mood Swings, Panic Attacks, Paranoia, Suicidal Ideation, Visual Hallucinations, Tactile Hallucinations, Other - Endocrine Endocrine: absent: As Per HPI, Change in Body Appearance, Change in Libido, Cold Intolorance, Deepening of Voice, Excessive Sweating, Fatigue, Flushing, Heat Intolorance, Increase in Ring/Shoe/Hat Size, Palpitations, Polydipsia, Polyphagia, Polyuria, Other - Hematologic/Lymphatic Hematologic: absent: As Per HPI, Easy Bleeding, Easy Bruising, Lymphadenopathy, Other Past Patient History - Past Medical History & Family History Past Medical History?: Yes - Past Social History Smoking Status: Never Smoked - CARDIAC Hx Cardiac Disorders: Yes Hx Hypercholesterolemia: Yes Hx Hypertension: Yes - PULMONARY Hx Respiratory Disorders: No - NEUROLOGICAL Hx Neurological Disorder: No - HEENT Hx HEENT Problems: No - RENAL Hx Chronic Kidney Disease: No - ENDOCRINE/METABOLIC Hx Endocrine Disorders: Yes Hx Diabetes Mellitus Type 2: Yes - HEMATOLOGICAL/ONCOLOGICAL Hx Blood Disorders: No Hx AIDS: No Hx Human Immunodeficiency Virus (HIV): No - INTEGUMENTARY Hx Dermatological Problems: No - MUSCULOSKELETAL/RHEUMATOLOGICAL Hx Musculoskeletal Disorders: No Hx Falls: Yes - GASTROINTESTINAL Hx Gastrointestinal Disorders: No - GENITOURINARY/GYNECOLOGICAL Hx Genitourinary Disorders: No - PSYCHIATRIC Hx Psychophysiologic Disorder: No Hx Substance Use: No - SURGICAL HISTORY Hx Surgeries: Yes Hx Section: Yes - ANESTHESIA Hx Anesthesia: Yes Hx Anesthesia Reactions: No Meds Allergies/Adverse Reactions: Allergies Allergy/AdvReac Type Severity Reaction Status Date / Time No Known Allergies Allergy Verified 09/05/16 10:14 - Medications Medications: Current Medications Sodium Chloride (Sodium Chloride 0.9%) 1,000 mls @ 250 mls/hr IV .Q4H [facility] Last Admin: 09/06/16 10:52 Dose: Not Given Piperacillin Sod/Tazobactam (Sod 2.25 gm/ Sodium Chloride) 100 mls @ 100 mls/ hr IVPB Q8 [facility] Last Admin: 09/06/16 10:00 Dose: 100 mls/hr Sodium Bicarbonate 44.6 meq/ (Dextrose/Sodium Chloride) 1,044.6 mls @ 250 mls/ hr IV .Q4H11M [facility] Stop: 09/07/16 12:30 Morphine Sulfate (Morphine) 2 mg IVP Q6 PRN PRN Reason: Pain, moderate (4-7) Ondansetron HCl (Zofran Inj) 4 mg IVP Q6 PRN PRN Reason: Nausea/Vomiting Physical Exam - Constitutional Appears: Non-toxic, Chronically Ill - Head Exam Head Exam: NORMOCEPHALIC - Eye Exam Eye Exam: PERRL. absent: Scleral icterus - ENT Exam ENT Exam: Mucous Membranes Dry, Normal External Ear Exam, Normal Oropharynx - Neck Exam Neck exam: Negative for: Lymphadenopathy, Thyromegaly - Respiratory Exam Respiratory Exam: Decreased Breath Sounds, Clear to Auscultation Bilateral - Cardiovascular Exam Cardiovascular Exam: REGULAR RHYTHM, +S1, +S2 - GI/Abdominal Exam GI & Abdominal Exam: Diminished Bowel Sounds, Distended, Soft. absent: Rebound , Rigid, Tenderness - Rectal Exam Rectal Exam: Deferred - Exam Exam: NORMAL INSPECTION - Extremities Exam Extremities exam: Positive for: pedal edema, pedal pulses present. Negative for : calf tenderness, tenderness - Back Exam Back exam: absent: CVA tenderness (L), CVA tenderness (R) - Neurological Exam Neurological exam: Alert, CN II-XII Intact - Psychiatric Exam Psychiatric exam: Depressed - Skin Skin Exam: Dry Results - Vital Signs Recent Vital Signs: Last Vital Signs Temp 97.5 F L 09/06/16 08:22 Pulse 54 L 09/06/16 08:22 Resp 20 09/06/16 08:22 BP 91/37 L 09/06/16 08:22 Pulse Ox 95 09/06/16 08:22 - Labs Result Diagrams: 09/06/16 05:30 09/06/16 05:30 Labs: Laboratory Results - last 24 hr 09/05/16 09/05/16 09/06/16 16:45 21:58 05:20 WBC RBC Hgb Hct MCV MCH MCHC RDW Plt Count MPV Neut % (Auto) Lymph % (Auto) [place] % (Auto) Eos % (Auto) Baso % (Auto) Neut # Lymph # [place] # Eos # Baso # PT INR APTT Sodium Potassium Chloride Carbon Dioxide Anion Gap BUN Creatinine Est GFR ( Amer) Est GFR (Non-Af Amer) POC Glucose (mg/dL) 103 90 Random Glucose Hemoglobin A1c Lactic Acid 1.6 Calcium TSH 3rd Generation 09/06/16 09/06/16 09/06/16 05:30 05:30 05:30 WBC 12.2 H RBC 4.02 Hgb 11.7 L Hct 36.8 MCV 91.7 MCH 29.1 MCHC 31.8 L RDW 14.0 Plt Count 152 MPV 9.3 Neut % (Auto) 77.7 H Lymph % (Auto) 12.6 L [place] % (Auto) 8.9 Eos % (Auto) 0.3 Baso % (Auto) 0.5 Neut # 9.5 H Lymph # 1.5 [place] # 1.1 H Eos # 0.0 Baso # 0.1 PT 12.4 H INR 1.19 H APTT 28.5 Sodium 136 Potassium 4.0 Chloride 113 H Carbon Dioxide 10 L* D Anion Gap 17 BUN 71 H Creatinine 5.9 H Est GFR ( Amer) 9 Est GFR (Non-Af Amer) 7 POC Glucose (mg/dL) Random Glucose 92 Hemoglobin A1c Lactic Acid Calcium 7.2 L TSH 3rd Generation 0.69 09/06/16 05:30 WBC RBC Hgb Hct MCV MCH MCHC RDW Plt Count MPV Neut % (Auto) Lymph % (Auto) [place] % (Auto) Eos % (Auto) Baso % (Auto) Neut # Lymph # [place] # Eos # Baso # PT INR APTT Sodium Potassium Chloride Carbon Dioxide Anion Gap BUN Creatinine Est GFR ( Amer) Est GFR (Non-Af Amer) POC Glucose (mg/dL) Random Glucose Hemoglobin A1c 7.2 H Lactic Acid Calcium TSH 3rd Generation Assessment & Plan (1) Acute renal failure Status: Acute (2) Colitis Status: Acute (3) DM2 (diabetes mellitus, type 2) Status: Acute (4) Dehydration Status: Acute (5) HTN (hypertension) Status: Acute (6) Liver mass, right lobe Status: Acute (7) Sepsis Status: Acute - Assessment and Plan (Free Text) Assessment: COLITIS WITH SEVERE DEHYDRATIION AND ATN PICTURE AWAIT CULTURES CONT EMPIRIC RX
--- NOTE | 2016-09-06 13:08 | US ---
HISTORY: liver lesions, r/o pv thrombosis COMPARISON: September 05, 2016. CT abdomen and pelvis. Summary of findings on the comparison examination: Large low-attenuation mass right hepatic lobe. September 05, 2016. Renal ultrasound TECHNIQUE: Sonographic evaluation of the abdomen. FINDINGS: LIVER: Measures 15 cm. Variable, of heterogeneous echogenicity of the liver parenchyma. Patent portal venous system without evidence of portal vein thrombosis. For 6.3 x 5.8 x 7.2 cm well-circumscribed solid mass right hepatic lobe corresponding to findings on recent imaging studies. Adjacent mass in the right hepatic lobe 4.1 x 4.2 cm. GALLBLADDER: Unremarkable. No gallstones. COMMON BILE DUCT: Measures 2.0 mm. No stones. No dilatation. PANCREAS: Unremarkable as visualized. Portions of the tail and body obscured by overlying bowel gas. RIGHT KIDNEY: Measures 4.9 x 10.7cm. Normal echogenicity. No calculus, mass, or hydronephrosis. LEFT KIDNEY: Measures 4.6 x 10.1cm. Midpole echogenic focus 2 x 4 mm consistent with nonobstructing calculus. Finding not apparent on the recent CT scan. SPLEEN: Normal in size and contour. No mass. AORTA: No aneurysmal dilatation. IVC: Unremarkable. OTHER FINDINGS: None. IMPRESSION: Hepatic masses (2) right hepatic lobe. Tumor should be considered the most likely possibility. Patent portal vein without evidence of portal vein thrombosis. Additional benign and/or incidental findings described above.
[2016-09-06 13:11] LABS: IRON 20 ug/dL (37-170)
[2016-09-06] MEDS: [UNRECOGNIZED DRUG - OTHER] IV SCH ×3 (13:32→19:37)
[2016-09-06] MEDS: SODIUM BICARBONATE IV SCH ×3 (13:32→19:37)
[2016-09-06] MEDS: DEXTROSE IV SCH ×3 (13:32→19:37)
[2016-09-06 16:55] LABS: CALCIUM 7.3 mg/dL (8.4-10.2); POTASSIUM 4.7 MMOL/L (3.6-5.0)
[2016-09-06 17:06] LABS: TROPONIN I 0.034 ng/mL (0.00-0.120)
[2016-09-06 17:17] LABS: IMMUNOGLOBULIN G 821.8 mg/dL (700.0-1600.0)
[2016-09-06 17:19] LABS: IMMUNOGLOBULIN A 327.8 mg/dL (70.0-400.0)
[2016-09-06 17:40] LABS: RBC URINE 3 /hpf (0-3); URINE BACTERIA OCC (<OCC); URINE BILIRUBIN NEGATIVE (NEGATIVE); URINE BLOOD SMALL (NEGATIVE); URINE COLOR YELLOW (YELLOW); URINE GLUCOSE (UA) NEG (Normal); URINE KETONE NEGATIVE (NEGATIVE); URINE LEUKOCYTE ESTERASE NEG Leu/uL (Negative); URINE PROTEIN 30 mg/dL (NEGATIVE); URINE UROBILINOGEN 0.2-1.0 mg/dL (0.2-1.0); WBC CLUMPS FEW /hpf; WBC URINE 7 /hpf (0-5)
--- NOTE | 2016-09-06 18:13 | CP.PCM.PN ---
Subjective - Date & Time of Evaluation Date of Evaluation: 09/06/16 Time of Evaluation: 13:00 - Subjective Subjective: Pt seen and examined. Complained of left sided chest pain which was relieved with SL NTG. Was able to put out some clear urine via quintana catheter. Objective - Vital Signs/Intake and Output Vital Signs (last 24 hours): Temp Pulse Resp BP Pulse Ox 97.4 F L 52 L 18 93/53 L 92 L 09/06/16 15:40 09/06/16 15:40 09/06/16 15:40 09/06/16 15:40 09/06/16 15:40 - Medications Medications: Current Medications Piperacillin Sod/Tazobactam (Sod 2.25 gm/ Sodium Chloride) 100 mls @ 100 mls/ hr IVPB Q8 [facility] Last Admin: 09/06/16 16:22 Dose: 100 mls/hr Sodium Bicarbonate 44.6 meq/ (Dextrose/Sodium Chloride) 1,044.6 mls @ 125 mls/ hr IV .Q8H22M [facility] Stop: 09/07/16 12:30 Morphine Sulfate (Morphine) 2 mg IVP Q6 PRN PRN Reason: Pain, moderate (4-7) Ondansetron HCl (Zofran Inj) 4 mg IVP Q6 PRN PRN Reason: Nausea/Vomiting - Labs Labs: 09/06/16 05:30 09/06/16 16:33 PT 12.4 SECONDS (9.6-11.2) H 09/06/16 05:30 INR 1.19 (0.92-1.08) H 09/06/16 05:30 APTT 28.5 SECONDS (23.3-32.5) 09/06/16 05:30 - Constitutional Appears: No Acute Distress - Head Exam Head Exam: ATRAUMATIC - Eye Exam Eye Exam: absent: Scleral icterus - ENT Exam ENT Exam: Mucous Membranes Moist - Neck Exam Neck Exam: absent: Meningismus - Respiratory Exam Respiratory Exam: absent: Rhonchi, Wheezes, Respiratory Distress - Cardiovascular Exam Cardiovascular Exam: REGULAR RHYTHM, +S1, +S2 - GI/Abdominal Exam GI & Abdominal Exam: Soft. absent: Tenderness - Rectal Exam Rectal Exam: Deferred - Extremities Exam Extremities Exam: absent: Pedal Edema - Neurological Exam Neurological Exam: Alert, Oriented x3 - Psychiatric Exam Psychiatric exam: Normal Affect - Skin Skin Exam: Dry, Intact Assessment and Plan (1) Sepsis Status: Acute (2) Dehydration Status: Acute (3) Acute renal failure Status: Acute (4) DM2 (diabetes mellitus, type 2) Status: Acute (5) HTN (hypertension) Status: Acute (6) Liver mass, right lobe Status: Acute (7) Colitis Status: Acute (8) DVT prophylaxis Status: Acute - Assessment and Plan (Free Text) Assessment: 71 yo female with history of DM2 and HTN admitted just 2 days after arriving from [facility] because of vomiting and diarrhea accompanied with fever and diaphoresis. (1) Sepsis probably secondary to colitis continue Zosyn 2.25gm IV q 8hrs. repeat serum Lactic Acid: 1.[address] Herron (2) Dehydration continue IV hydration BUN/Creat: 77/6.2 (worse than yesterday) (3) Acute renal failure renal consult with Dr Valles appreciated pt may need dialysis with worsening renal function renal sonogram: negative for hydronephrosis (4) DM2 (diabetes mellitus, type 2) BS relatively controlled as patient has not been eating accuchek ACHS with low Lispro. HgA1C: 7.2 (5) HTN (hypertension) BP on the low side because of volume depletion continue hold on all BP meds (6) Liver mass, right lobe r/o malignancy 2 masses on right lobe GI consult with Dr Prado may need percutaneous biopsy (7) Colitis CT scan showed mass or wall thickening in the rectum and wall thickening in the hepatic flexure. continue renal dose of Zosyn. (8) DVT prophylaxis venodyne boots while in bed avoid anticoagulant as patient mentioned some blood on vomitus and stools recently
[2016-09-07] MEDS: [UNRECOGNIZED DRUG - OTHER] IV SCH ×2 (03:08→12:18)
[2016-09-07] MEDS: DEXTROSE IV SCH ×2 (03:08→12:18)
[2016-09-07] MEDS: SODIUM BICARBONATE IV SCH ×2 (03:08→12:18)
--- NOTE | 2016-09-07 09:15 | CP.PCM.PN ---
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 She made about over 900 mL overnight of urine. No nausea no vomiting appetite is good Chest clear heart no rubs Abdomen soft Extremity no edema Impression and plan Acute renal failure probably from dehydration? The urine test noted to have yeast suggestive of fungus urine infection therefore I suggest ID consult for treatment to be discussed with the primary care physician BMP still pending from this morning waiting to follow-up on the BUN/creatinine and CO2 and the electrolyte. And meantime continue IV fluid 1 25 mL/h with 1 amp. of sodium bicarbonate till co2 come up. I ordered a stat BMP now and phosphorus eosinophils in the urine and serum uric acid and CPK Objective - Vital Signs/Intake and Output Vital Signs (last 24 hours): Temp Pulse Resp BP Pulse Ox 98.3 F 46 L 18 95/49 L 96 09/07/16 08:15 09/07/16 08:15 09/07/16 08:15 09/07/16 08:15 09/07/16 08:15 Intake and Output: 09/07/16 09/07/16 06:59 18:59 Intake Total 1320 Output Total 1150 Balance 170 - Medications Medications: Current Medications Piperacillin Sod/Tazobactam (Sod 2.25 gm/ Sodium Chloride) 100 mls @ 100 mls/ hr IVPB Q8 [facility] Last Admin: 09/07/16 08:22 Dose: 100 mls/hr Sodium Bicarbonate 44.6 meq/ (Dextrose/Sodium Chloride) 1,044.6 mls @ 125 mls/ hr IV .Q8H22M [facility] Stop: 09/07/16 12:30 Last Admin: 09/07/16 03:08 Dose: 125 mls/hr Morphine Sulfate (Morphine) 2 mg IVP Q6 PRN PRN Reason: Pain, moderate (4-7) Ondansetron HCl (Zofran Inj) 4 mg IVP Q6 PRN PRN Reason: Nausea/Vomiting Sodium Bicarbonate (Sodium Bicarbonate Tab) 650 mg PO Q8 [facility] - Labs Labs: 09/06/16 05:30 09/06/16 16:33 PT 12.4 SECONDS (9.6-11.2) H 09/06/16 05:30 INR 1.19 (0.92-1.08) H 09/06/16 05:30 APTT 28.5 SECONDS (23.3-32.5) 09/06/16 05:30 Assessment and Plan (1) Acute renal failure Status: Acute
--- NOTE | 2016-09-07 09:43 | CP.PCM.PN ---
<Hilda Klein - Last Filed: 09/07/16 09:45> Subjective - Date & Time of Evaluation Date of Evaluation: 09/07/16 Time of Evaluation: 09:00 - Subjective Subjective: Pt seen and examined at bedside, does not have any new complaints, still having diarrhea, making some urine as well. reviewed nurses note. still have some abdominal pain, denies chest pain, sob, dizziness, nausea or vomiting Objective - Vital Signs/Intake and Output Vital Signs (last 24 hours): Temp Pulse Resp BP Pulse Ox 98.3 F 46 L 18 95/49 L 96 09/07/16 08:15 09/07/16 08:15 09/07/16 08:15 09/07/16 08:15 09/07/16 08:15 Intake and Output: 09/07/16 09/07/16 06:59 18:59 Intake Total 1320 Output Total 1150 Balance 170 - Medications Medications: Current Medications Piperacillin Sod/Tazobactam (Sod 2.25 gm/ Sodium Chloride) 100 mls @ 100 mls/ hr IVPB Q8 [facility] Last Admin: 09/07/16 08:22 Dose: 100 mls/hr Sodium Bicarbonate 44.6 meq/ (Dextrose/Sodium Chloride) 1,044.6 mls @ 125 mls/ hr IV .Q8H22M [facility] Stop: 09/07/16 12:30 Last Admin: 09/07/16 03:08 Dose: 125 mls/hr Morphine Sulfate (Morphine) 2 mg IVP Q6 PRN PRN Reason: Pain, moderate (4-7) Ondansetron HCl (Zofran Inj) 4 mg IVP Q6 PRN PRN Reason: Nausea/Vomiting Sodium Bicarbonate (Sodium Bicarbonate Tab) 650 mg PO Q8 [facility] - Labs Labs: 09/06/16 05:30 09/06/16 16:33 PT 12.4 SECONDS (9.6-11.2) H 09/06/16 05:30 INR 1.19 (0.92-1.08) H 09/06/16 05:30 APTT 28.5 SECONDS (23.3-32.5) 09/06/16 05:30 - Constitutional Appears: Non-toxic, No Acute Distress - Head Exam Head Exam: NORMOCEPHALIC - Eye Exam Eye Exam: Normal appearance, PERRL - ENT Exam ENT Exam: Mucous Membranes Moist - Respiratory Exam Respiratory Exam: Clear to Ausculation Bilateral, NORMAL BREATHING PATTERN. absent: Rhonchi, Wheezes - Cardiovascular Exam Cardiovascular Exam: REGULAR RHYTHM, +S1, +S2 - GI/Abdominal Exam GI & Abdominal Exam: Soft Additional comments: mild tenderness on deep palpation - Extremities Exam Extremities Exam: Normal Inspection. absent: Calf Tenderness, Pedal Edema - Neurological Exam Neurological Exam: Alert, Awake, Oriented x3 Assessment and Plan - Assessment and Plan (Free Text) Assessment: 71 year old female with h/o DM, HTN who presents with abdominal pain, diarrhea, and acute renal failure, found to have liver lesions and possible colitis. Plan: 1. Liver lesions 2. Diarrhea 3. Abnormal CT scan of the GI tract, colon Plan: -currently the most acute issue is acute renal failure, nephrology following, BMP for this morning resulting still pending, unsure of how CO2, BUN/Cr has improved from yesterday -the patient is now making some urine -she is receiving IV fluids at 125 cc an hour -she doesn't appear to have signs of chronic liver disease to suggest that this could be hepatorenal syndrome, so do not suspect this -regarding the liver lesions, ddx includes HCC, cholangiocarcinoma, metastatic lesions from colon, and bengin liver lesions like adenoma/FNH -US abdomen with dopplers does not show any evidence of portal vein thrombosis -recommend triple phase CT of liver if able to give contrast later in the hospital course, or alternatively an MRI -may need liver biopsy eventually when medically stable -Hepatitis B and C negative, IgG 821, IgA 327, IgM 80 -f/u AFP -stool studies for infectious causes of diarrhea and colitis still pending -elective colonoscopy or sigmoidoscopy would be recommended to evaluate further , however again, patient is not medically stable for this with acute renal failure and acidosis, so will wait until she is stable -will follow <Janina Prado MD - Last Filed: 09/07/16 16:42> Objective - Vital Signs/Intake and Output Vital Signs (last 24 hours): Temp Pulse Resp BP Pulse Ox 97.8 F 49 L 18 121/58 L 100 09/07/16 16:00 09/07/16 16:00 09/07/16 16:00 09/07/16 16:00 09/07/16 16:00 Intake and Output: 09/07/16 09/07/16 06:59 18:59 Intake Total 1320 Output Total 1150 Balance 170 - Medications Medications: Current Medications Heparin Sodium (Porcine) (Heparin) 5,000 units SC Q12 [facility] PRN Reason: Protocol Piperacillin Sod/Tazobactam (Sod 2.25 gm/ Sodium Chloride) 100 mls @ 100 mls/ hr IVPB Q8 [facility] Last Admin: 09/07/16 16:18 Dose: 100 mls/hr Fluconazole (Diflucan Iv 100 Mg/50 Ml Ns) 50 mls @ 50 mls/hr IVPB DAILY [facility] Last Admin: 09/07/16 16:13 Dose: 50 mls/hr Insulin Detemir (Levemir) 6 units SC HS [facility] Insulin Human Lispro (Humalog) 0 units SC ACHS [facility] PRN Reason: Protocol Last Admin: 09/07/16 16:14 Dose: 4 units Morphine Sulfate (Morphine) 2 mg IVP Q6 PRN PRN Reason: Pain, moderate (4-7) Ondansetron HCl (Zofran Inj) 4 mg IVP Q6 PRN PRN Reason: Nausea/Vomiting Sevelamer HCl (Renagel) 400 mg PO TIDWM [facility] Stop: 09/10/16 12:01 Last Admin: 09/07/16 16:13 Dose: 400 mg Sodium Bicarbonate (Sodium Bicarbonate Tab) 650 mg PO DAILY [facility] - Labs Labs: 09/07/16 09:25 09/07/16 09:25 PT 12.4 SECONDS (9.6-11.2) H 09/06/16 05:30 INR 1.19 (0.92-1.08) H 09/06/16 05:30 APTT 28.5 SECONDS (23.3-32.5) 09/06/16 05:30 Attending/Attestation - Attestation I have personally seen and examined this patient.: Yes I have fully participated in the care of the patient.: Yes I have reviewed all pertinent clinical information, including history, physical exam and plan: Yes Notes (Text): 09/07/16 16:41 Patient seen with resident. This is a 71 year old female with h/o DM, HTN who presents with abdominal pain, diarrhea, and acute renal failure, found to have liver lesions and possible colitis. 1. Liver lesions 2. Diarrhea 3. Abnormal CT scan of the GI tract, colon Plan: -renal failure improving with some urine output -tContinue IVF as nephrology -she is receiving IV fluids at 250 cc an hour and awaiting a nephrology consultation -regarding the liver lesions, ddx includes HCC, cholangiocarcinoma, metastatic lesions from colon, and bengin liver lesions like adenoma/FNH - US abdomen with dopplers with echogenic liver and liver lesions an dpatent portal vein -recommend triple phase CT of liver if able to give contrast later in the hospital course, or alternatively an MRI -may need liver biopsy eventually when medically stable -recommend workup for chronic liver diseases including viral hepatitis and autoimmune serologies -check AFP -check stool studies for infectious causes of diarrhea and colitis -elective colonoscopy or sigmoidoscopy would be recommended to evaluate further , however again, patient is not medically stable for this with acute anuric renal failure and acidosis, so will wait until she is stable -will follow
[2016-09-07 09:57] LABS: BASO # 0.1 K/uL (0.0-0.2); BASO % 0.5 % (0.0-2.0); EOS % 0.2 % (0.0-4.0); HEMATOCRIT 37.4 % (34.0-47.0); LYMPH # 1.2 K/uL (1.0-4.3); LYMPH % 10.3 % (20.0-40.0); MEAN CELL VOLUME 90.6 fl (81.0-99.0); MEAN CORPUSCULAR HEMOGLOBIN 29.4 pg (27.0-31.0); MEAN CORPUSCULAR HGB CONC 32.5 g/dL (33.0-37.0); MEAN PLATELET VOLUME 8.9 fl (7.2-11.7); MONO # 0.8 K/uL (0.0-0.8); NEUT # 9.7 K/uL (1.8-7.0); RED CELL DISTRIBUTION WIDTH 13.9 % (11.5-14.5); WHITE BLOOD COUNT 11.9 K/uL (4.8-10.8)
--- NOTE | 2016-09-07 10:16 | CARD ---
APPROVED REPORT EKG Measurement Heart [id number] <Conclusion> Undetermined rhythm Cannot rule out Anterior infarct, age undetermined Abnormal ECG
[2016-09-07 10:19] LABS: ALB/GLOB RATIO 0.7 (1.0-2.1); BILIRUBIN,TOTAL 0.5 mg/dl (0.2-1.3); CALCIUM 7.5 mg/dL (8.4-10.2); PHOSPHOROUS 6.4 mg/dl (2.5-4.5); POTASSIUM 4.2 MMOL/L (3.6-5.0); TOTAL PROTEIN 5.2 G/DL (6.3-8.2); URIC ACID 7.7 mg/Dl (2.2-7.5)
--- NOTE | 2016-09-07 11:45 | CP.PCM.PN ---
Subjective - Date & Time of Evaluation Date of Evaluation: 09/07/16 Time of Evaluation: 11:00 - Subjective Subjective: No fever diarrhea improved - only once this am, 2x yesterday no N/V tolerating liquid diet denies abd pain no CP no SOB no cough Objective - Vital Signs/Intake and Output Vital Signs (last 24 hours): Temp Pulse Resp BP Pulse Ox 98.3 F 46 L 18 95/49 L 96 09/07/16 08:15 09/07/16 09:00 09/07/16 08:15 09/07/16 08:15 09/07/16 08:15 Intake and Output: 09/07/16 09/07/16 06:59 18:59 Intake Total 1320 Output Total 1150 Balance 170 - Medications Medications: Current Medications Piperacillin Sod/Tazobactam (Sod 2.25 gm/ Sodium Chloride) 100 mls @ 100 mls/ hr IVPB Q8 [facility] Last Admin: 09/07/16 08:22 Dose: 100 mls/hr Sodium Bicarbonate 44.6 meq/ (Dextrose/Sodium Chloride) 1,044.6 mls @ 125 mls/ hr IV .Q8H22M [facility] Stop: 09/07/16 12:30 Last Admin: 09/07/16 03:08 Dose: 125 mls/hr Morphine Sulfate (Morphine) 2 mg IVP Q6 PRN PRN Reason: Pain, moderate (4-7) Ondansetron HCl (Zofran Inj) 4 mg IVP Q6 PRN PRN Reason: Nausea/Vomiting Sodium Bicarbonate (Sodium Bicarbonate Tab) 650 mg PO Q8 [facility] Last Admin: 09/07/16 11:19 Dose: 650 mg - Labs Labs: 09/07/16 09:25 09/07/16 09:25 PT 12.4 SECONDS (9.6-11.2) H 09/06/16 05:30 INR 1.19 (0.92-1.08) H 09/06/16 05:30 APTT 28.5 SECONDS (23.3-32.5) 09/06/16 05:30 - Constitutional Appears: No Acute Distress - Head Exam Head Exam: NORMAL INSPECTION, NORMOCEPHALIC - Eye Exam Eye Exam: EOMI, Normal appearance Pupil Exam: NORMAL ACCOMODATION - ENT Exam ENT Exam: Mucous Membranes Moist, Normal External Ear Exam - Neck Exam Neck Exam: Full ROM. absent: Meningismus - Respiratory Exam Respiratory Exam: NORMAL BREATHING PATTERN. absent: Respiratory Distress - Cardiovascular Exam Cardiovascular Exam: REGULAR RHYTHM, +S1, +S2 - GI/Abdominal Exam GI & Abdominal Exam: Soft, Normal Bowel Sounds. absent: Tenderness - Extremities Exam Extremities Exam: Normal Capillary Refill. absent: Calf Tenderness, Pedal Edema - Back Exam Back Exam: absent: CVA tenderness (L), CVA tenderness (R), paraspinal tenderness , vertebral tenderness - Neurological Exam Neurological Exam: Alert, Awake, CN II-XII Intact Additional comments: oriented to person and place - Psychiatric Exam Psychiatric exam: Normal Affect, Normal Mood - Skin Skin Exam: Dry, Normal Color, Warm Assessment and Plan (1) Sepsis Status: Acute (2) Acute renal failure Status: Acute (3) Liver lesion Status: Acute (4) Colonic thickening Status: Acute (5) Colitis Status: Acute (6) DM2 (diabetes mellitus, type 2) Status: Chronic (7) Dehydration Status: Acute (8) Lung nodule < 6cm on CT Status: Acute (9) Yeast UTI Status: Acute (10) DVT prophylaxis Status: Acute - Assessment and Plan (Free Text) Assessment: 71 y/o lady with hx of HTN, DM, visiting from [facility] , was brought in bec of weakness, fevere, diarrhea and N/V. (1) Sepsis prob sec to GI infection Pt came in febrile, with elevated WBC Ct, elevated lactic acid was hypotensive however improved with IVF hydrtion Pt on UV Zosyn ID consulted Status: Acute (2) Acute renal failure prob sec to Dehydration and Sepsis Metabolic Acidosis sec to RF Status: Acute IVF hydration tx Sepsis Nephrology consult Sodium Bicarb for Metabolic acidosis start low dose Renagel for elevated Phos (3) Liver lesion r/o malignancy Status: Acute unable to do Triple Phase CT due to MIGUEL will do MRI of abd GI consulted- will likely need biopsy Stool for ameba (4) Colonic thickening ? 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
[2016-09-07 12:02] LABS: ABG ALLEN TEST YES; ARTERIAL BLOOD GAS O2 CAPACITY 17.2 mL/dL (16-24); ARTERIAL BLOOD GAS O2 CONTENT 16.9 ML/dL (15-23); ARTERIAL BLOOD HGB O2 SAT 96.5 % (95.0-98.0); CARBOXYHEMOGLOBIN 0.8 % (0.5-1.5); HHB 1.6 % (0.0-5.0); METHEMOGLOBIN 1.1 % (0.0-3.0)
[2016-09-07 12:05] LABS: ARTERIAL BLOOD GAS PH 7.12 (7.35-7.45)
[2016-09-07 12:06] LABS: ARTERIAL BLOOD GAS PO2 126 mm/Hg (80-100)
--- NOTE | 2016-09-07 15:55 | CP.PCM.PN ---
Subjective - Date & Time of Evaluation Date of Evaluation: 09/07/16 Time of Evaluation: 08:00 - Subjective Subjective: improved less diarrhea no fever alert responsive no abd tend iv rx in progress diflucan added await stool tests may need Bx Objective - Vital Signs/Intake and Output Vital Signs (last 24 hours): Temp Pulse Resp BP Pulse Ox 97.8 F 44 L 18 108/53 L 99 09/07/16 11:57 09/07/16 11:57 09/07/16 11:57 09/07/16 11:57 09/07/16 11:57 Intake and Output: 09/07/16 09/07/16 06:59 18:59 Intake Total 1320 Output Total 1150 Balance 170 - Medications Medications: Current Medications Heparin Sodium (Porcine) (Heparin) 5,000 units SC Q12 [facility] PRN Reason: Protocol Piperacillin Sod/Tazobactam (Sod 2.25 gm/ Sodium Chloride) 100 mls @ 100 mls/ hr IVPB Q8 [facility] Last Admin: 09/07/16 08:22 Dose: 100 mls/hr Fluconazole (Diflucan Iv 100 Mg/50 Ml Ns) 50 mls @ 50 mls/hr IVPB DAILY [facility] Insulin Detemir (Levemir) 6 units SC HS [facility] Insulin Human Lispro (Humalog) 0 units SC ACHS [facility] PRN Reason: Protocol Morphine Sulfate (Morphine) 2 mg IVP Q6 PRN PRN Reason: Pain, moderate (4-7) Ondansetron HCl (Zofran Inj) 4 mg IVP Q6 PRN PRN Reason: Nausea/Vomiting Sevelamer HCl (Renagel) 400 mg PO TIDWM [facility] Stop: 09/10/16 12:01 Last Admin: 09/07/16 12:18 Dose: 400 mg Sodium Bicarbonate (Sodium Bicarbonate Tab) 650 mg PO DAILY [facility] - Labs Labs: 09/07/16 09:25 09/07/16 09:25 PT 12.4 SECONDS (9.6-11.2) H 09/06/16 05:30 INR 1.19 (0.92-1.08) H 09/06/16 05:30 APTT 28.5 SECONDS (23.3-32.5) 09/06/16 05:30 - Constitutional Appears: Non-toxic, Chronically Ill - Head Exam Head Exam: NORMOCEPHALIC - Eye Exam Eye Exam: PERRL. absent: Scleral icterus - ENT Exam ENT Exam: Mucous Membranes Dry - Neck Exam Neck Exam: absent: Lymphadenopathy - Respiratory Exam Respiratory Exam: Decreased Breath Sounds, Rhonchi - Cardiovascular Exam Cardiovascular Exam: REGULAR RHYTHM, +S1, +S2 - GI/Abdominal Exam GI & Abdominal Exam: Distended, Soft. absent: Tenderness - Rectal Exam Rectal Exam: Deferred - Exam Exam: NORMAL INSPECTION - Extremities Exam Extremities Exam: absent: Calf Tenderness, Pedal Edema - Back Exam Back Exam: absent: CVA tenderness (L), CVA tenderness (R) - Neurological Exam Neurological Exam: Alert, Awake, Oriented x3 - Psychiatric Exam Psychiatric exam: Normal Mood - Skin Skin Exam: Dry, Intact Assessment and Plan (1) Acute renal failure Status: Acute (2) Colitis Status: Acute (3) DM2 (diabetes mellitus, type 2) Status: Chronic (4) Dehydration Status: Acute (5) HTN (hypertension) Status: Acute (6) Liver mass, right lobe Status: Acute (7) Sepsis Status: Acute
[2016-09-07] MEDS: Fluconazole IV 100mg/50 ml NS 50 ML IVPB SCH (16:13)
[2016-09-07] MEDS: Insulin Lispro (humaLOG) 100 Units/ml Inj SC SCH ×2 (16:14→21:25)
[2016-09-07] MEDS: metroNIDAZOLE 500mg/100ml NS 100 ML IVPB SCH (21:14)
[2016-09-07] MEDS: Insulin Detemir 100 Units/ml Inj SC SCH (21:26)
[2016-09-08] MEDS: metroNIDAZOLE 500mg/100ml NS 100 ML IVPB SCH ×3 (00:59→17:04)
[2016-09-08 06:56] LABS: HAV AB (IGM) Nonreactive (Nonreactive)
[2016-09-08 07:27] LABS: BASO % 0.4 % (0.0-2.0); EOS # 0.2 K/uL (0.0-0.7); EOS % 1.5 % (0.0-4.0); HEMATOCRIT 36.1 % (34.0-47.0); LYMPH # 1.6 K/uL (1.0-4.3); MEAN CELL VOLUME 89.3 fl (81.0-99.0); MEAN CORPUSCULAR HEMOGLOBIN 29.3 pg (27.0-31.0); MEAN CORPUSCULAR HGB CONC 32.8 g/dL (33.0-37.0); MEAN PLATELET VOLUME 8.7 fl (7.2-11.7); MONO % 8.8 % (0.0-10.0); NEUT # 8.6 K/uL (1.8-7.0); NEUT % 75.3 % (50.0-75.0); RED CELL DISTRIBUTION WIDTH 13.8 % (11.5-14.5); WHITE BLOOD COUNT 11.4 K/uL (4.8-10.8)
[2016-09-08 07:32] LABS: ALB/GLOB RATIO 0.8 (1.0-2.1); BILIRUBIN,TOTAL 0.6 mg/dl (0.2-1.3); CALCIUM 8.1 mg/dL (8.4-10.2); PHOSPHOROUS 4.4 mg/dl (2.5-4.5); POTASSIUM 3.9 MMOL/L (3.6-5.0); TOTAL PROTEIN 5.4 G/DL (6.3-8.2)
[2016-09-08] MEDS: Fluconazole IV 100mg/50 ml NS 50 ML IVPB SCH (08:30)
[2016-09-08] MEDS: Insulin Lispro (humaLOG) 100 Units/ml Inj SC SCH ×4 (08:31→21:49)
--- NOTE | 2016-09-08 09:06 | CP.PCM.PN ---
<ErnieHilda - Last Filed: 09/08/16 10:03> Subjective - Date & Time of Evaluation Date of Evaluation: 09/08/16 Time of Evaluation: 08:30 - Subjective Subjective: Pt seen and examined at bedside this morning in presence of daughter, she is for MRI this morning, had one soft bowel movement yesterday which was used to send of for the stool studies. Pt does have any complaints. Nurses notes reviewed. Objective - Vital Signs/Intake and Output Vital Signs (last 24 hours): Temp Pulse Resp BP Pulse Ox 98.4 F 50 L 18 110/54 L 96 09/08/16 08:10 09/08/16 08:10 09/08/16 08:10 09/08/16 08:10 09/08/16 08:10 - Medications Medications: Current Medications Heparin Sodium (Porcine) (Heparin) 5,000 units SC Q12 [facility] PRN Reason: Protocol Last Admin: 09/08/16 08:32 Dose: 5,000 units Piperacillin Sod/Tazobactam (Sod 2.25 gm/ Sodium Chloride) 100 mls @ 100 mls/ hr IVPB Q8 [facility] Last Admin: 09/08/16 08:31 Dose: 100 mls/hr Fluconazole (Diflucan Iv 100 Mg/50 Ml Ns) 50 mls @ 50 mls/hr IVPB DAILY [facility] Last Admin: 09/08/16 08:30 Dose: 50 mls/hr Metronidazole (Flagyl 500mg/100ml Ns) 100 mls @ 100 mls/hr IVPB Q8 [facility] Last Admin: 09/08/16 08:30 Dose: 100 mls/hr Insulin Detemir (Levemir) 6 units SC HS [facility] Last Admin: 09/07/16 21:26 Dose: 6 u Insulin Human Lispro (Humalog) 0 units SC ACHS [facility] PRN Reason: Protocol Last Admin: 09/08/16 08:31 Dose: Not Given Morphine Sulfate (Morphine) 2 mg IVP Q6 PRN PRN Reason: Pain, moderate (4-7) Ondansetron HCl (Zofran Inj) 4 mg IVP Q6 PRN PRN Reason: Nausea/Vomiting Sevelamer HCl (Renagel) 400 mg PO TIDWM [facility] Stop: 09/10/16 12:01 Last Admin: 05/05/17 08:32 Dose: 400 mg Sodium Bicarbonate (Sodium Bicarbonate Tab) 650 mg PO DAILY [facility] Last Admin: 09/08/16 08:32 Dose: 650 mg - Labs Labs: 09/08/16 06:40 09/08/16 06:40 PT 12.4 SECONDS (9.6-11.2) H 09/06/16 05:30 INR 1.19 (0.92-1.08) H 09/06/16 05:30 APTT 28.5 SECONDS (23.3-32.5) 09/06/16 05:30 - Constitutional Appears: No Acute Distress - Head Exam Head Exam: NORMOCEPHALIC - Eye Exam Eye Exam: Normal appearance - ENT Exam ENT Exam: Mucous Membranes Moist - Respiratory Exam Respiratory Exam: Clear to Ausculation Bilateral, NORMAL BREATHING PATTERN. absent: Wheezes - Cardiovascular Exam Cardiovascular Exam: REGULAR RHYTHM, +S1, +S2 - GI/Abdominal Exam GI & Abdominal Exam: Soft, Normal Bowel Sounds. absent: Tenderness - Extremities Exam Extremities Exam: absent: Calf Tenderness, Pedal Edema - Neurological Exam Neurological Exam: Alert, Awake, Oriented x3 Assessment and Plan - Assessment and Plan (Free Text) Assessment: 71 year old female with h/o DM, HTN who presents with abdominal pain, diarrhea, and acute renal failure, found to have liver lesions and possible colitis. Plan: 1. Liver lesions 2. Diarrhea 3. Abnormal CT scan of the GI tract, colon Plan: -currently the most acute issue is acute renal failure- which is slowly improving -the patient is now making some urine -she is receiving IV fluids at 125 cc an hour -she doesn't appear to have signs of chronic liver disease to suggest that this could be hepatorenal syndrome, so do not suspect this -regarding the liver lesions, ddx includes HCC, cholangiocarcinoma, metastatic lesions from colon, and bengin liver lesions like adenoma/FNH -US abdomen with dopplers does not show any evidence of portal vein thrombosis -recommend triple phase CT of liver if able to give contrast given MIGUEL, MRI of abdomen was done this morning, F/U official reading -may need liver biopsy eventually when medically stable -Hepatitis B and C negative, Hepative A Ab postive, IgG 821, IgA 327, IgM 80 -f/u AFP -stool studies for infectious causes of diarrhea and colitis collected last night, f/u results in the AM -elective colonoscopy or sigmoidoscopy would be recommended to evaluate further , however again, patient is not medically stable for this with acute renal failure, so will wait until she is stable -will follow <Janina Prado MD - Last Filed: 09/08/16 12:04> Objective - Vital Signs/Intake and Output Vital Signs (last 24 hours): Temp Pulse Resp BP Pulse Ox 98.4 F 50 L 18 110/54 L 96 09/08/16 08:10 09/08/16 08:10 09/08/16 08:10 09/08/16 08:10 09/08/16 08:10 - Medications Medications: Current Medications Heparin Sodium (Porcine) (Heparin) 5,000 units SC Q12 [facility] PRN Reason: Protocol Last Admin: 09/08/16 08:32 Dose: 5,000 units Piperacillin Sod/Tazobactam (Sod 2.25 gm/ Sodium Chloride) 100 mls @ 100 mls/ hr IVPB Q8 [facility] Last Admin: 09/08/16 08:31 Dose: 100 mls/hr Fluconazole (Diflucan Iv 100 Mg/50 Ml Ns) 50 mls @ 50 mls/hr IVPB DAILY [facility] Last Admin: 09/08/16 08:30 Dose: 50 mls/hr Metronidazole (Flagyl 500mg/100ml Ns) 100 mls @ 100 mls/hr IVPB Q8 [facility] Last Admin: 09/08/16 08:30 Dose: 100 mls/hr Insulin Detemir (Levemir) 6 units SC HS [facility] Last Admin: 09/07/16 21:26 Dose: 6 u Insulin Human Lispro (Humalog) 0 units SC ACHS [facility] PRN Reason: Protocol Last Admin: 09/08/16 08:31 Dose: Not Given Morphine Sulfate (Morphine) 2 mg IVP Q6 PRN PRN Reason: Pain, moderate (4-7) Ondansetron HCl (Zofran Inj) 4 mg IVP Q6 PRN PRN Reason: Nausea/Vomiting Sevelamer HCl (Renagel) 400 mg PO TIDWM [facility] Stop: 09/10/16 12:01 Last Admin: 09/08/16 08:32 Dose: 400 mg Sodium Bicarbonate (Sodium Bicarbonate Tab) 650 mg PO DAILY [facility] Last Admin: 09/08/16 08:32 Dose: 650 mg - Labs Labs: 09/08/16 06:40 09/08/16 06:40 PT 12.4 SECONDS (9.6-11.2) H 09/06/16 05:30 INR 1.19 (0.92-1.08) H 09/06/16 05:30 APTT 28.5 SECONDS (23.3-32.5) 09/06/16 05:30 Attending/Attestation - Attestation I have personally seen and examined this patient.: Yes I have fully participated in the care of the patient.: Yes I have reviewed all pertinent clinical information, including history, physical exam and plan: Yes Notes (Text): 09/08/16 12:03 Patient seen in am on rounds. This is a 71 year old female with h/o DM, HTN who presents with abdominal pain, diarrhea, and acute renal failure, found to have liver lesions and possible colitis. Diarrhea resolved with stool infectious work up pending. IR liver biopsy pending. MRI liver results pending. Hepatitis B and C negative, Hepative A immune, abd IgG within normal limits. Will follow. Diet as tolerated.
--- NOTE | 2016-09-08 09:25 | CP.PCM.PN ---
Subjective - Date & Time of Evaluation Date of Evaluation: 09/08/16 Time of Evaluation: 13:00 - Subjective Subjective: Patient was seen and examined bedside.Feeling better. Hemodynamically stable, afebrile.BP 110/54 HR 50 o2Sat 96 5 in RA Able to urinate. Kidney function improving BUN /cr 58/4.1 WBC 11 Hgb 11.9 Plt 171K No acute issues overnight. Objective - Vital Signs/Intake and Output Vital Signs (last 24 hours): Temp Pulse Resp BP Pulse Ox 98.4 F 50 L 18 110/54 L 96 09/08/16 08:10 09/08/16 08:10 09/08/16 08:10 09/08/16 08:10 09/08/16 08:10 - Medications Medications: Current Medications Heparin Sodium (Porcine) (Heparin) 5,000 units SC Q12 [facility] PRN Reason: Protocol Last Admin: 09/08/16 08:32 Dose: 5,000 units Piperacillin Sod/Tazobactam (Sod 2.25 gm/ Sodium Chloride) 100 mls @ 100 mls/ hr IVPB Q8 [facility] Last Admin: 09/08/16 08:31 Dose: 100 mls/hr Fluconazole (Diflucan Iv 100 Mg/50 Ml Ns) 50 mls @ 50 mls/hr IVPB DAILY [facility] Last Admin: 09/08/16 08:30 Dose: 50 mls/hr Metronidazole (Flagyl 500mg/100ml Ns) 100 mls @ 100 mls/hr IVPB Q8 [facility] Last Admin: 09/08/16 08:30 Dose: 100 mls/hr Insulin Detemir (Levemir) 6 units SC HS [facility] Last Admin: 09/07/16 21:26 Dose: 6 u Insulin Human Lispro (Humalog) 0 units SC ACHS [facility] PRN Reason: Protocol Last Admin: 09/08/16 08:31 Dose: Not Given Morphine Sulfate (Morphine) 2 mg IVP Q6 PRN PRN Reason: Pain, moderate (4-7) Ondansetron HCl (Zofran Inj) 4 mg IVP Q6 PRN PRN Reason: Nausea/Vomiting Sevelamer HCl (Renagel) 400 mg PO TIDWM [facility] Stop: 09/10/16 12:01 Last Admin: 09/08/16 08:32 Dose: 400 mg Sodium Bicarbonate (Sodium Bicarbonate Tab) 650 mg PO DAILY [facility] Last Admin: 09/08/16 08:32 Dose: 650 mg - Labs Labs: 09/08/16 06:40 09/08/16 06:40 PT 12.4 SECONDS (9.6-11.2) H 09/06/16 05:30 INR 1.19 (0.92-1.08) H 09/06/16 05:30 APTT 28.5 SECONDS (23.3-32.5) 09/06/16 05:30 - Constitutional Appears: Non-toxic, Toxic, No Acute Distress - Head Exam Head Exam: ATRAUMATIC, NORMAL INSPECTION, NORMOCEPHALIC - Eye Exam Eye Exam: EOMI, Normal appearance, PERRL Pupil Exam: NORMAL ACCOMODATION - ENT Exam ENT Exam: Mucous Membranes Moist, Normal Exam - Neck Exam Neck Exam: Full ROM, Normal Inspection - Respiratory Exam Respiratory Exam: Clear to Ausculation Bilateral, NORMAL BREATHING PATTERN. absent: Rales, Rhonchi, Wheezes - Cardiovascular Exam Cardiovascular Exam: REGULAR RHYTHM, RRR, +S1, +S2. absent: JVD - GI/Abdominal Exam GI & Abdominal Exam: Soft, Normal Bowel Sounds. absent: Distended, Guarding, Tenderness, Rebound - Rectal Exam Rectal Exam: Deferred - Extremities Exam Extremities Exam: Full ROM, Normal Capillary Refill, Normal Inspection. absent : Calf Tenderness, Pedal Edema - Back Exam Back Exam: NORMAL INSPECTION - Neurological Exam Neurological Exam: Alert, Awake, CN II-XII Intact, Oriented x3 - Psychiatric Exam Psychiatric exam: Normal Affect - Skin Skin Exam: Dry, Intact, Warm Assessment and Plan - Assessment and Plan (Free Text) Assessment: 71 y/o lady with hx of HTN, DM, visiting from [facility] , was brought in because of weakness, fever, diarrhea, N/V.Patient was found to have elevated WBC 17 , fever, elevated lactic acid and renal failure. She was admitted with diagnosis if sepsis , started on IVF and IV zosyn. ID, GI and nephrology were consulted. CT abdomen showed Large slightly low-attenuation mass lesions in the right liver lobe suspicious for neoplasm, may represent liver metastasis. Suspicious mass lesion or wall thickening at the rectum and hepatic flexure. At present hemodynamically stable, afebrile and her kidney function is improving. 1. Sepsis prob sec to GI infection Pt came in febrile with diarrhea, with elevated WBC and lactic acid was hypotensive however improved with IVF hydrtion on IV Zosyn, Flagyl and Diflucan Blood cx with no growth and urine cx positive for multiple species Still with 3 episodes of diarrhea today ID consult appreciated 2. Acute renal failure prob sec to Dehydration and Sepsis Metabolic Acidosis sec to RF Renal function improving with IVF . BUN / Cr today 58/4.1 Continue IVF hydration with 1/2 NS Nephrology consult appreciated Sodium Bicarb for Metabolic acidosis Renal US showed normal echogenecity and size , no obstruction started low dose Renagel for elevated Phos 3. Liver lesion r/o malignancy unable to do Triple Phase CT due to MIGUEL MRI of abdomen again showing liver masses suspicious for malignancy Will need tissue for diagnosis. Consulted IR for CT guided biopsy. As per IR Biopsy will be done on Sunday. Hold Heparin for Sunday AM and keep NPO sunday past mid night. GI consulted Stool for ameba sent Strated Flagyl 4. Colonic thickening ? etiology , may be related to infection , however need to r/o malgnancy outpt Colonoscopy GI consulted 5. Colitis Pt came with fever, abd pain, diarrhea and N/V Stool c/s with no growth OVA parasite- negative on IV Zosyn, Flagyl and Diflucan 6.DM2 (diabetes mellitus, type 2) Chronic accucheck started low dose Levemir diabetic , renal diet 7.Lung nodule < 6cm on CT will need rpt CT in 3-6 mos 8. Yeast UTI suspicious final urine cx positive for multiple species Discuassed with Dr bautista and strated on Diflucan Continue Zosyn 9. DVT prophylaxis Heparin
--- NOTE | 2016-09-08 11:04 | CP.PCM.PN ---
Subjective - Date & Time of Evaluation Date of Evaluation: 09/08/16 Time of Evaluation: 11:40 - Subjective Subjective: Appears comfortable in bed Objective - Vital Signs/Intake and Output Vital Signs (last 24 hours): Temp Pulse Resp BP Pulse Ox 98.4 F 50 L 18 110/54 L 96 09/08/16 08:10 09/08/16 08:10 09/08/16 08:10 09/08/16 08:10 09/08/16 08:10 - Medications Medications: Current Medications Heparin Sodium (Porcine) (Heparin) 5,000 units SC Q12 [facility] PRN Reason: Protocol Last Admin: 09/08/16 08:32 Dose: 5,000 units Piperacillin Sod/Tazobactam (Sod 2.25 gm/ Sodium Chloride) 100 mls @ 100 mls/ hr IVPB Q8 [facility] Last Admin: 09/08/16 08:31 Dose: 100 mls/hr Fluconazole (Diflucan Iv 100 Mg/50 Ml Ns) 50 mls @ 50 mls/hr IVPB DAILY [facility] Last Admin: 09/08/16 08:30 Dose: 50 mls/hr Metronidazole (Flagyl 500mg/100ml Ns) 100 mls @ 100 mls/hr IVPB Q8 [facility] Last Admin: 09/08/16 08:30 Dose: 100 mls/hr Insulin Detemir (Levemir) 6 units SC HS [facility] Last Admin: 09/07/16 21:26 Dose: 6 u Insulin Human Lispro (Humalog) 0 units SC ACHS [facility] PRN Reason: Protocol Last Admin: 09/08/16 08:31 Dose: Not Given Morphine Sulfate (Morphine) 2 mg IVP Q6 [facility] PRN Reason: Pain, moderate (4-7) Ondansetron HCl (Zofran Inj) 4 mg IVP Q6 PRN PRN Reason: Nausea/Vomiting Sevelamer HCl (Renagel) 400 mg PO TIDWM [facility] Stop: 09/10/16 12:01 Last Admin: 09/08/16 08:32 Dose: 400 mg Sodium Bicarbonate (Sodium Bicarbonate Tab) 650 mg PO DAILY [facility] Last Admin: 09/08/16 08:32 Dose: 650 mg - Labs Labs: 09/08/16 06:40 09/08/16 06:40 PT 12.4 SECONDS (9.6-11.2) H 09/06/16 05:30 INR 1.19 (0.92-1.08) H 09/06/16 05:30 APTT 28.5 SECONDS (23.3-32.5) 09/06/16 05:30 - Respiratory Exam Additional comments: Lungs clear - Cardiovascular Exam Cardiovascular Exam: REGULAR RHYTHM - GI/Abdominal Exam GI & Abdominal Exam: Soft Assessment and Plan - Assessment and Plan (Free Text) Assessment: MIGUEL, dehydration Renal function continues to improve Metabolic acidosis is improving Plan: Continue current Mx Continue to monitor renal function
--- NOTE | 2016-09-08 12:20 | MRI ---
MRI abdomen without IV contrast Indication: Liver lesion Technique: Multiplanar, multi sequence magnetic resonance images of the abdomen were obtained without the administration of intravenous gadolinium. A total of 453 images submitted for review Comparison: CT of the abdomen and pelvis without oral or IV contrast performed 09/05/16, abdominal ultrasound performed 09/06/16 Findings: Large heterogeneous hepatic mass or masses spanning approximately 4.9 x 10.2 cm region on coronal images. Contrast was not administered and this lesion/s cannot be further characterized. The noncontrast gallbladder, spleen, pancreas, adrenal glands, and kidneys appear grossly unremarkable. No bulky adenopathy appreciated. No ascites. Limited views of the inferior thorax demonstrate bilateral pleural effusions. Impression: Large heterogeneous hepatic mass or masses spanning approximately 4.9 x 10.2 cm region on coronal images. IV contrast was not administered and this lesion cannot be further characterized. Appearance concerning for metastases and must be excluded. Bilateral pleural effusions.
--- NOTE | 2016-09-08 13:28 | CP.PCM.PN ---
Subjective - Date & Time of Evaluation Date of Evaluation: 09/08/16 Time of Evaluation: 09:00 - Subjective Subjective: afebrile awake alert oob to chair NAD Objective - Vital Signs/Intake and Output Vital Signs (last 24 hours): Temp Pulse Resp BP Pulse Ox 98.3 F 49 L 18 130/61 97 09/08/16 12:42 09/08/16 12:42 09/08/16 12:42 09/08/16 12:42 09/08/16 12:42 - Medications Medications: Current Medications Heparin Sodium (Porcine) (Heparin) 5,000 units SC Q12 [facility] PRN Reason: Protocol Last Admin: 09/08/16 08:32 Dose: 5,000 units Piperacillin Sod/Tazobactam (Sod 2.25 gm/ Sodium Chloride) 100 mls @ 100 mls/ hr IVPB Q8 [facility] Last Admin: 09/08/16 08:31 Dose: 100 mls/hr Fluconazole (Diflucan Iv 100 Mg/50 Ml Ns) 50 mls @ 50 mls/hr IVPB DAILY [facility] Last Admin: 09/08/16 08:30 Dose: 50 mls/hr Metronidazole (Flagyl 500mg/100ml Ns) 100 mls @ 100 mls/hr IVPB Q8 [facility] Last Admin: 09/08/16 08:30 Dose: 100 mls/hr Insulin Detemir (Levemir) 6 units SC HS [facility] Last Admin: 09/07/16 21:26 Dose: 6 u Insulin Human Lispro (Humalog) 0 units SC ACHS [facility] PRN Reason: Protocol Last Admin: 09/08/16 12:50 Dose: 2 units Morphine Sulfate (Morphine) 2 mg IVP Q6 [facility]N PRN Reason: Pain, moderate (4-7) Ondansetron HCl (Zofran Inj) 4 mg IVP Q6 PRN PRN Reason: Nausea/Vomiting Sevelamer HCl (Renagel) 400 mg PO TIDWM [facility] Stop: 09/10/16 12:01 Last Admin: 09/08/16 12:51 Dose: 400 mg Sodium Bicarbonate (Sodium Bicarbonate Tab) 650 mg PO DAILY [facility] Last Admin: 09/08/16 08:32 Dose: 650 mg - Labs Labs: 09/08/16 06:40 09/08/16 06:40 PT 12.4 SECONDS (9.6-11.2) H 09/06/16 05:30 INR 1.19 (0.92-1.08) H 09/06/16 05:30 APTT 28.5 SECONDS (23.3-32.5) 09/06/16 05:30 - Constitutional Appears: Non-toxic, Chronically Ill - Head Exam Head Exam: NORMOCEPHALIC - Eye Exam Eye Exam: PERRL. absent: Scleral icterus - ENT Exam ENT Exam: Mucous Membranes Dry - Neck Exam Neck Exam: absent: Lymphadenopathy - Respiratory Exam Respiratory Exam: Decreased Breath Sounds, Clear to Ausculation Bilateral - Cardiovascular Exam Cardiovascular Exam: REGULAR RHYTHM, +S1, +S2 - GI/Abdominal Exam GI & Abdominal Exam: Distended, Soft. absent: Tenderness - Rectal Exam Rectal Exam: Deferred - Exam Exam: NORMAL INSPECTION - Extremities Exam Extremities Exam: absent: Calf Tenderness, Pedal Edema Assessment and Plan (1) Acute renal failure Status: Acute (2) Colitis Status: Acute (3) DM2 (diabetes mellitus, type 2) Status: Chronic (4) Dehydration Status: Acute (5) HTN (hypertension) Status: Acute (6) Liver mass, right lobe Status: Acute (7) Sepsis Status: Acute
[2016-09-08] MEDS ORDERED: Sodium Chloride 0.9% 1,000 ML IV SCH (16:30)
[2016-09-08] MEDS: Sodium Chloride 0.45% 1,000 ML IV SCH (16:57)
[2016-09-08] MEDS: Insulin Detemir 100 Units/ml Inj SC SCH (21:52)
[2016-09-09] MEDS: metroNIDAZOLE 500mg/100ml NS 100 ML IVPB SCH ×3 (01:15→17:20)
[2016-09-09 08:23] LABS: CALCIUM 8.1 mg/dL (8.4-10.2); POTASSIUM 3.4 MMOL/L (3.6-5.0)
[2016-09-09] MEDS: Insulin Lispro (humaLOG) 100 Units/ml Inj SC SCH ×4 (08:29→21:39)
--- NOTE | 2016-09-09 09:01 | CP.PCM.PN ---
<Manny Otto - Last Filed: 09/09/16 12:40> Subjective - Date & Time of Evaluation Date of Evaluation: 09/09/16 Time of Evaluation: 11:50 - Subjective Subjective: PGY4 GI Fellow Progress Note Patient seen and examined bedside this morning. Patient's grandson at bedside. The patient denies any complaints at present. Had one loose BM yesterday evening. Tolerating diet without issue. No abdominal pain presently. 12 system ROS performed and negative except where stated. Objective - Vital Signs/Intake and Output Vital Signs (last 24 hours): Temp Pulse Resp BP Pulse Ox 98.2 F 43 L 18 147/66 96 09/09/16 08:03 09/09/16 08:03 09/09/16 08:03 09/09/16 08:03 09/09/16 08:03 - Medications Medications: Current Medications Heparin Sodium (Porcine) (Heparin) 5,000 units SC Q12 [facility] PRN Reason: Protocol Last Admin: 09/08/16 21:52 Dose: 5,000 units Piperacillin Sod/Tazobactam (Sod 2.25 gm/ Sodium Chloride) 100 mls @ 100 mls/ hr IVPB Q8 [facility] Last Admin: 09/09/16 01:16 Dose: 100 mls/hr Fluconazole (Diflucan Iv 100 Mg/50 Ml Ns) 50 mls @ 50 mls/hr IVPB DAILY [facility] Last Admin: 09/08/16 08:30 Dose: 50 mls/hr Metronidazole (Flagyl 500mg/100ml Ns) 100 mls @ 100 mls/hr IVPB Q8 [facility] Last Admin: 09/09/16 01:15 Dose: 100 mls/hr Sodium Chloride (Sodium Chloride 0.45%) 1,000 mls @ 100 mls/hr IV .Q10H [facility] Stop: 09/09/16 16:20 Last Admin: 09/08/16 16:57 Dose: 100 mls/hr Insulin Detemir (Levemir) 6 units SC HS [facility] Last Admin: 09/08/16 21:52 Dose: 6 u Insulin Human Lispro (Humalog) 0 units SC ACHS [facility] PRN Reason: Protocol Last Admin: 09/08/16 21:49 Dose: Not Given Morphine Sulfate (Morphine) 2 mg IVP Q6 PRN PRN Reason: Pain, moderate (4-7) Ondansetron HCl (Zofran Inj) 4 mg IVP Q6 PRN PRN Reason: Nausea/Vomiting Sevelamer HCl (Renagel) 400 mg PO TIDWM [facility] Stop: 09/10/16 12:01 Last Admin: 09/08/16 16:57 Dose: 400 mg Sodium Bicarbonate (Sodium Bicarbonate Tab) 650 mg PO DAILY [facility] Last Admin: 09/08/16 08:32 Dose: 650 mg - Labs Labs: 09/08/16 06:40 09/09/16 06:00 PT 12.4 SECONDS (9.6-11.2) H 09/06/16 05:30 INR 1.19 (0.92-1.08) H 09/06/16 05:30 APTT 28.5 SECONDS (23.3-32.5) 09/06/16 05:30 - Constitutional Appears: Non-toxic, No Acute Distress - Eye Exam Eye Exam: EOMI, PERRL - ENT Exam ENT Exam: Mucous Membranes Moist - Respiratory Exam Respiratory Exam: Clear to Ausculation Bilateral. absent: Rales, Rhonchi, Wheezes - Cardiovascular Exam Cardiovascular Exam: RRR, +S1, +S2 - GI/Abdominal Exam GI & Abdominal Exam: Soft, Normal Bowel Sounds. absent: Distended, Firm, Guarding, Rigid, Tenderness, Organomegaly - Extremities Exam Extremities Exam: Normal Inspection - Neurological Exam Neurological Exam: Alert, Awake, Oriented x3 - Psychiatric Exam Psychiatric exam: Normal Affect, Normal Mood - Skin Skin Exam: Dry, Warm Assessment and Plan - Assessment and Plan (Free Text) Assessment: Patient is a 71yo female with PMHx significant for DM, HTN who presented to the ED with abdominal pain, diarrhea and acute renal failure. -Abnormal CT scan of the GI tract - colitis and liver lesion -Fungal UTI -Acute diarrheal illness, resolving -Acute renal failure, resolving Plan: -MRI abdomen reviewed; large 10.2x4.9cm lesion noted -Plan for IR biopsy on Sunday -Diet as tolerated -Pending results of IR biopsy, consider colonoscopy this week; she has never had endoscopic evaluation -On Fluconazole - yeast on Ucx - UTI -Flagyl/Zosyn - colitis <Janina Prado MD - Last Filed: 09/09/16 15:46> Objective - Vital Signs/Intake and Output Vital Signs (last 24 hours): Temp Pulse Resp BP Pulse Ox 98.3 F 49 L 18 135/68 97 09/09/16 11:59 09/09/16 11:59 09/09/16 11:59 09/09/16 11:59 09/09/16 11:59 - Medications Medications: Current Medications Heparin Sodium (Porcine) (Heparin) 5,000 units SC Q12 [facility] PRN Reason: Protocol Last Admin: 09/09/16 09:28 Dose: 5,000 units Piperacillin Sod/Tazobactam (Sod 2.25 gm/ Sodium Chloride) 100 mls @ 100 mls/ hr IVPB Q8 [facility] Last Admin: 09/09/16 09:28 Dose: 100 mls/hr Fluconazole (Diflucan Iv 100 Mg/50 Ml Ns) 50 mls @ 50 mls/hr IVPB DAILY [facility] Last Admin: 09/09/16 10:44 Dose: 50 mls/hr Metronidazole (Flagyl 500mg/100ml Ns) 100 mls @ 100 mls/hr IVPB Q8 [facility] Last Admin: 09/09/16 09:28 Dose: 100 mls/hr Sodium Chloride (Sodium Chloride 0.45%) 1,000 mls @ 100 mls/hr IV .Q10H [facility] Stop: 09/09/16 16:20 Last Admin: 09/09/16 12:37 Dose: 100 mls/hr Insulin Detemir (Levemir) 6 units SC HS [facility] Last Admin: 09/08/16 21:52 Dose: 6 u Insulin Human Lispro (Humalog) 0 units SC ACHS [facility] PRN Reason: Protocol Last Admin: 09/09/16 12:30 Dose: 2 units Morphine Sulfate (Morphine) 2 mg IVP Q6 PRN PRN Reason: Pain, moderate (4-7) Ondansetron HCl (Zofran Inj) 4 mg IVP Q6 PRN PRN Reason: Nausea/Vomiting Sevelamer HCl (Renagel) 400 mg PO TIDWM [facility] Stop: 09/10/16 12:01 Last Admin: 09/09/16 12:37 Dose: 400 mg Sodium Bicarbonate (Sodium Bicarbonate Tab) 650 mg PO DAILY [facility] Last Admin: 09/09/16 09:30 Dose: 650 mg - Labs Labs: 09/08/16 06:40 09/09/16 06:00 PT 12.4 SECONDS (9.6-11.2) H 09/06/16 05:30 INR 1.19 (0.92-1.08) H 09/06/16 05:30 APTT 28.5 SECONDS (23.3-32.5) 09/06/16 05:30 Attending/Attestation - Attestation I have personally seen and examined this patient.: Yes I have fully participated in the care of the patient.: Yes I have reviewed all pertinent clinical information, including history, physical exam and plan: Yes Notes (Text): 09/09/16 15:44 Patient seen in am on rounds with GI fellow. This is a 71 year old female with h /o DM, HTN who presents with abdominal pain, diarrhea, and acute renal failure, found to have liver lesions and possible colitis. Diarrhea resolved. IR liver biopsy pending. MRI liver results show large liver lesion. Hepatitis B and C negative, Hepative A immune, abd IgG within normal limits. Will follow liver biopsy. Needs colonoscopy once acute issues resolved. UTI fungal infection to be treated as ID. Diet as tolerated.
--- NOTE | 2016-09-09 09:32 | CP.PCM.PN ---
Subjective - Date & Time of Evaluation Date of Evaluation: 09/09/16 Time of Evaluation: 09:32 - Subjective Subjective: patient states she is feeling much better, laying in bed comfortably no complaints at this time HD stable Renal function continuing to improve no acute distress daughter at bedside, awaiting Bx on Sunday Objective - Vital Signs/Intake and Output Vital Signs (last 24 hours): Temp Pulse Resp BP Pulse Ox 98.2 F 43 L 18 147/66 96 09/09/16 08:03 09/09/16 08:03 09/09/16 08:03 09/09/16 08:03 09/09/16 08:03 - Medications Medications: Current Medications Heparin Sodium (Porcine) (Heparin) 5,000 units SC Q12 [facility] PRN Reason: Protocol Last Admin: 09/09/16 09:28 Dose: 5,000 units Piperacillin Sod/Tazobactam (Sod 2.25 gm/ Sodium Chloride) 100 mls @ 100 mls/ hr IVPB Q8 [facility] Last Admin: 09/09/16 09:28 Dose: 100 mls/hr Fluconazole (Diflucan Iv 100 Mg/50 Ml Ns) 50 mls @ 50 mls/hr IVPB DAILY [facility] Last Admin: 09/08/16 08:30 Dose: 50 mls/hr Metronidazole (Flagyl 500mg/100ml Ns) 100 mls @ 100 mls/hr IVPB Q8 [facility] Last Admin: 09/09/16 09:28 Dose: 100 mls/hr Sodium Chloride (Sodium Chloride 0.45%) 1,000 mls @ 100 mls/hr IV .Q10H [facility] Stop: 09/09/16 16:20 Last Admin: 09/08/16 16:57 Dose: 100 mls/hr Insulin Detemir (Levemir) 6 units SC HS [facility] Last Admin: 09/08/16 21:52 Dose: 6 u Insulin Human Lispro (Humalog) 0 units SC ACHS [facility] PRN Reason: Protocol Last Admin: 09/09/16 08:29 Dose: Not Given Morphine Sulfate (Morphine) 2 mg IVP Q6 PRN PRN Reason: Pain, moderate (4-7) Ondansetron HCl (Zofran Inj) 4 mg IVP Q6 PRN PRN Reason: Nausea/Vomiting Sevelamer HCl (Renagel) 400 mg PO TIDWM [facility] Stop: 09/10/16 12:01 Last Admin: 09/09/16 08:59 Dose: 400 mg Sodium Bicarbonate (Sodium Bicarbonate Tab) 650 mg PO DAILY [facility] Last Admin: 09/09/16 09:30 Dose: 650 mg - Labs Labs: 09/08/16 06:40 09/09/16 06:00 PT 12.4 SECONDS (9.6-11.2) H 09/06/16 05:30 INR 1.19 (0.92-1.08) H 09/06/16 05:30 APTT 28.5 SECONDS (23.3-32.5) 09/06/16 05:30 - Constitutional Appears: Non-toxic, No Acute Distress - Head Exam Head Exam: ATRAUMATIC, NORMOCEPHALIC - Eye Exam Eye Exam: EOMI, Normal appearance, PERRL Pupil Exam: NORMAL ACCOMODATION - ENT Exam ENT Exam: Mucous Membranes Moist, Normal Oropharynx - Respiratory Exam Respiratory Exam: Clear to Ausculation Bilateral, NORMAL BREATHING PATTERN. absent: Wheezes - Cardiovascular Exam Cardiovascular Exam: RRR, +S1, +S2. absent: Gallop, Rubs - GI/Abdominal Exam GI & Abdominal Exam: Soft, Normal Bowel Sounds. absent: Tenderness, Mass, Organomegaly - Extremities Exam Extremities Exam: Normal Capillary Refill. absent: Calf Tenderness - Back Exam Back Exam: absent: CVA tenderness (L), CVA tenderness (R) - Neurological Exam Neurological Exam: Alert, Awake - Psychiatric Exam Psychiatric exam: Normal Affect, Normal Mood - Skin Skin Exam: Dry, Warm Assessment and Plan - Assessment and Plan (Free Text) Plan: 71 y/o lady with hx of HTN, DM, visiting from [facility] , was brought in because of weakness, fever, diarrhea, N/V.Patient was found to have elevated WBC 17 , fever, elevated lactic acid and renal failure. She was admitted with diagnosis if sepsis , started on IVF and IV zosyn. ID, GI and nephrology were consulted. CT abdomen showed Large slightly low-attenuation mass lesions in the right liver lobe suspicious for neoplasm, may represent liver metastasis. Suspicious mass lesion or wall thickening at the rectum and hepatic flexure. At present hemodynamically stable, afebrile and kidney function continues to improve. 1. Sepsis prob sec to GI infection Pt came in febrile with diarrhea, with elevated WBC and lactic acid was hypotensive however improved with IVF hydrtion on IV Zosyn, Flagyl and Diflucan Blood cx with no growth and urine cx positive for multiple species Continues to have diarrhea, however improving ID consult appreciated and followed 2. Acute renal failure prob sec to Dehydration and Sepsis Metabolic Acidosis sec to RF Renal function improving with IVF . BUN / Cr today 58/4.1 Continue IVF hydration with 1/2 NS Nephrology consult appreciated Sodium Bicarb for Metabolic acidosis Renal US showed normal echogenecity and size , no obstruction started low dose Renagel for elevated Phos 3. Liver lesion r/o malignancy unable to do Triple Phase CT due to MIGUEL MRI of abdomen again showing liver masses suspicious for malignancy Will need tissue for diagnosis. Consulted IR for CT guided biopsy. As per IR Biopsy will be done on Sunday. Hold Heparin for Sunday AM and keep NPO sunday past mid night. GI consulted Stool for ameba sent Strated Flagyl 4. Colonic thickening ? etiology , may be related to infection , however need to r/o malgnancy outpt Colonoscopy GI consulted 5. Colitis Pt came with fever, abd pain, diarrhea and N/V Stool c/s with no growth OVA parasite- negative on IV Zosyn, Flagyl and Diflucan 6.DM2 (diabetes mellitus, type 2) Chronic accucheck started low dose Levemir diabetic , renal diet 7.Lung nodule < 6cm on CT will need rpt CT in 3-6 mos 8. Yeast UTI suspicious final urine cx positive for multiple species Discuassed with Dr bautista and strated on Diflucan Continue Zosyn 9. DVT prophylaxis Heparin
[2016-09-09] MEDS: Fluconazole IV 100mg/50 ml NS 50 ML IVPB SCH (10:44)
[2016-09-09] MEDS ORDERED: Potassium Chloride 20 mEq ER Tab PO ONE (11:00)
--- NOTE | 2016-09-09 11:07 | CP.PCM.PN ---
Subjective - Date & Time of Evaluation Date of Evaluation: 09/09/16 Time of Evaluation: 10:45 - Subjective Subjective: Appears more comfortable today Objective - Vital Signs/Intake and Output Vital Signs (last 24 hours): Temp Pulse Resp BP Pulse Ox 98.2 F 43 L 18 147/66 96 09/09/16 08:03 09/09/16 08:03 09/09/16 08:03 09/09/16 08:03 09/09/16 08:03 - Medications Medications: Current Medications Heparin Sodium (Porcine) (Heparin) 5,000 units SC Q12 [facility] PRN Reason: Protocol Last Admin: 09/09/16 09:28 Dose: 5,000 units Piperacillin Sod/Tazobactam (Sod 2.25 gm/ Sodium Chloride) 100 mls @ 100 mls/ hr IVPB Q8 [facility] Last Admin: 09/09/16 09:28 Dose: 100 mls/hr Fluconazole (Diflucan Iv 100 Mg/50 Ml Ns) 50 mls @ 50 mls/hr IVPB DAILY [facility] Last Admin: 09/09/16 10:44 Dose: 50 mls/hr Metronidazole (Flagyl 500mg/100ml Ns) 100 mls @ 100 mls/hr IVPB Q8 [facility] Last Admin: 09/09/16 09:28 Dose: 100 mls/hr Sodium Chloride (Sodium Chloride 0.45%) 1,000 mls @ 100 mls/hr IV .Q10H [facility] Stop: 09/09/16 16:20 Last Admin: 09/08/16 16:57 Dose: 100 mls/hr Insulin Detemir (Levemir) 6 units SC HS [facility] Last Admin: 09/08/16 21:52 Dose: 6 u Insulin Human Lispro (Humalog) 0 units SC ACHS [facility] PRN Reason: Protocol Last Admin: 09/09/16 08:29 Dose: Not Given Morphine Sulfate (Morphine) 2 mg IVP Q6 PRN PRN Reason: Pain, moderate (4-7) Ondansetron HCl (Zofran Inj) 4 mg IVP Q6 PRN PRN Reason: Nausea/Vomiting Potassium Chloride (K-Dur 20 Meq Er Tab) 20 meq PO ONCE ONE Stop: 09/09/16 11:01 Sevelamer HCl (Renagel) 400 mg PO TIDWM [facility] Stop: 09/10/16 12:01 Last Admin: 09/09/16 08:59 Dose: 400 mg Sodium Bicarbonate (Sodium Bicarbonate Tab) 650 mg PO DAILY [facility] Last Admin: 09/09/16 09:30 Dose: 650 mg - Labs Labs: 09/08/16 06:40 09/09/16 06:00 PT 12.4 SECONDS (9.6-11.2) H 09/06/16 05:30 INR 1.19 (0.92-1.08) H 09/06/16 05:30 APTT 28.5 SECONDS (23.3-32.5) 09/06/16 05:30 - Respiratory Exam Additional comments: Lungs clear - Cardiovascular Exam Cardiovascular Exam: REGULAR RHYTHM - GI/Abdominal Exam GI & Abdominal Exam: Soft Assessment and Plan - Assessment and Plan (Free Text) Assessment: MIGUEL renal fiunction continues to improve RTA bicarb improved Liver mass Sepsis DM Plan: Continue current Mx Monitor renal function Monitor phos level May not need Renagel since renal function is improving
[2016-09-09] MEDS: Sodium Chloride 0.45% 1,000 ML IV SCH (12:37)
[2016-09-09] MEDS: Insulin Detemir 100 Units/ml Inj SC SCH (21:40)
[2016-09-10] MEDS: metroNIDAZOLE 500mg/100ml NS 100 ML IVPB SCH ×3 (00:03→16:25)
[2016-09-10 06:58] LABS: BASO # 0.1 K/uL (0.0-0.2); BASO % 1.2 % (0.0-2.0); EOS # 0.3 K/uL (0.0-0.7); EOS % 4.3 % (0.0-4.0); HEMATOCRIT 34.2 % (34.0-47.0); LYMPH # 1.5 K/uL (1.0-4.3); LYMPH % 18.2 % (20.0-40.0); MEAN CELL VOLUME 88.1 fl (81.0-99.0); MEAN CORPUSCULAR HEMOGLOBIN 30.2 pg (27.0-31.0); MEAN CORPUSCULAR HGB CONC 34.3 g/dL (33.0-37.0); MEAN PLATELET VOLUME 8.2 fl (7.2-11.7); MONO # 1.2 K/uL (0.0-0.8); MONO % 14.8 % (0.0-10.0); NEUT # 4.9 K/uL (1.8-7.0); NEUT % 61.5 % (50.0-75.0); PLATELET COUNT 195 K/uL (130-400); RED CELL DISTRIBUTION WIDTH 13.4 % (11.5-14.5)
--- NOTE | 2016-09-10 07:10 | CP.PCM.PN ---
Subjective - Date & Time of Evaluation Date of Evaluation: 09/10/16 Time of Evaluation: 07:10 - Subjective Subjective: patient seen and observed bedside, states her diarrhea is improving. tolerating abx well awaiting liver bx tomorrow. vitals are stable no acute distress Objective - Vital Signs/Intake and Output Vital Signs (last 24 hours): Temp Pulse Resp BP Pulse Ox 99.4 F 46 L 18 155/62 H 96 09/10/16 04:37 09/10/16 04:37 09/10/16 04:37 09/10/16 04:37 09/10/16 04:37 - Medications Medications: Current Medications Heparin Sodium (Porcine) (Heparin) 5,000 units SC Q12 [facility] PRN Reason: Protocol Last Admin: 09/09/16 21:40 Dose: 5,000 units Piperacillin Sod/Tazobactam (Sod 2.25 gm/ Sodium Chloride) 100 mls @ 100 mls/ hr IVPB Q8 [facility] Last Admin: 09/10/16 00:04 Dose: 100 mls/hr Fluconazole (Diflucan Iv 100 Mg/50 Ml Ns) 50 mls @ 50 mls/hr IVPB DAILY [facility] Last Admin: 09/09/16 10:44 Dose: 50 mls/hr Metronidazole (Flagyl 500mg/100ml Ns) 100 mls @ 100 mls/hr IVPB Q8 [facility] Last Admin: 09/10/16 00:03 Dose: 100 mls/hr Insulin Detemir (Levemir) 6 units SC HS [facility] Last Admin: 09/09/16 21:40 Dose: 6 u Insulin Human Lispro (Humalog) 0 units SC ACHS [facility] PRN Reason: Protocol Last Admin: 09/09/16 21:39 Dose: Not Given Morphine Sulfate (Morphine) 2 mg IVP Q6 PRN PRN Reason: Pain, moderate (4-7) Ondansetron HCl (Zofran Inj) 4 mg IVP Q6 PRN PRN Reason: Nausea/Vomiting Sevelamer HCl (Renagel) 400 mg PO TIDWM [facility] Stop: 09/10/16 12:01 Last Admin: 09/09/16 16:21 Dose: 400 mg Sodium Bicarbonate (Sodium Bicarbonate Tab) 650 mg PO DAILY [facility] Last Admin: 09/09/16 09:30 Dose: 650 mg - Labs Labs: 09/08/16 06:40 09/09/16 06:00 PT 12.4 SECONDS (9.6-11.2) H 09/06/16 05:30 INR 1.19 (0.92-1.08) H 09/06/16 05:30 APTT 28.5 SECONDS (23.3-32.5) 09/06/16 05:30 - Constitutional Appears: Non-toxic, No Acute Distress - Head Exam Head Exam: ATRAUMATIC, NORMOCEPHALIC - Eye Exam Eye Exam: EOMI, Normal appearance, PERRL Pupil Exam: NORMAL ACCOMODATION - ENT Exam ENT Exam: Mucous Membranes Moist, Normal Oropharynx - Neck Exam Neck Exam: Full ROM, Normal Inspection - Respiratory Exam Respiratory Exam: Clear to Ausculation Bilateral, NORMAL BREATHING PATTERN - Cardiovascular Exam Cardiovascular Exam: RRR, +S1, +S2 - GI/Abdominal Exam GI & Abdominal Exam: Soft, Normal Bowel Sounds. absent: Tenderness, Organomegaly - Extremities Exam Extremities Exam: Normal Capillary Refill. absent: Joint Swelling - Back Exam Back Exam: absent: CVA tenderness (L), CVA tenderness (R) - Neurological Exam Neurological Exam: Alert, Awake - Psychiatric Exam Psychiatric exam: Normal Affect, Normal Mood - Skin Skin Exam: Dry, Warm Assessment and Plan - Assessment and Plan (Free Text) Plan: 71 y/o lady with hx of HTN, DM, visiting from [facility] , was brought in because of weakness, fever, diarrhea, N/V.Patient was found to have elevated WBC 17 , fever, elevated lactic acid and renal failure. She was admitted with diagnosis if sepsis , started on IVF and IV zosyn. ID, GI and nephrology were consulted. CT abdomen showed Large slightly low-attenuation mass lesions in the right liver lobe suspicious for neoplasm, may represent liver metastasis. Suspicious mass lesion or wall thickening at the rectum and hepatic flexure. currently patient is hemodynamically stable, afebrile and kidney function continues to improve today as well. 1. Sepsis prob sec to GI infection Pt came in febrile with diarrhea, with elevated WBC and lactic acid was hypotensive however improved with IVF hydrtion on IV Zosyn, Flagyl and Diflucan Blood cx with no growth and urine cx positive for multiple species Continues to have diarrhea, however improving ID consult appreciated and followed 2. Acute renal failure prob sec to Dehydration and Sepsis Metabolic Acidosis sec to RF Renal function improving with IVF . BUN / Cr today 58/4.1 Continue IVF hydration with 1/2 NS Nephrology consult appreciated Sodium Bicarb for Metabolic acidosis Renal US showed normal echogenecity and size , no obstruction started low dose Renagel for elevated Phos 3. Liver lesion r/o malignancy unable to do Triple Phase CT due to MIGUEL MRI of abdomen again showing liver masses suspicious for malignancy Will need tissue for diagnosis. Consulted IR for CT guided biopsy. As per IR Biopsy will be done on Sunday. Hold Heparin for Sunday AM and keep NPO sunday past mid night. GI consulted Stool for ameba sent Strated Flagyl 4. Colonic thickening ? etiology , may be related to infection , however need to r/o malgnancy outpt Colonoscopy GI consulted 5. Colitis Pt came with fever, abd pain, diarrhea and N/V Stool c/s with no growth OVA parasite- negative on IV Zosyn, Flagyl and Diflucan 6.DM2 (diabetes mellitus, type 2) Chronic accucheck started low dose Levemir diabetic , renal diet 7.Lung nodule < 6cm on CT will need rpt CT in 3-6 mos 8. Yeast UTI suspicious final urine cx positive for multiple species Discuassed with Dr bautista and strated on Diflucan Continue Zosyn 9. DVT prophylaxis Heparin
[2016-09-10 07:25] LABS: CALCIUM 8.5 mg/dL (8.4-10.2); POTASSIUM 3.8 MMOL/L (3.6-5.0)
[2016-09-10] MEDS: Insulin Lispro (humaLOG) 100 Units/ml Inj SC SCH ×4 (08:25→22:28)
[2016-09-10] MEDS: Fluconazole IV 100mg/50 ml NS 50 ML IVPB SCH (10:00)
[2016-09-10 10:15] LABS: BASOPHIL 2 % (0-2); EOSINOPHIL 4 % (0-7); NEUTROPHIL 65 % (42-75); TOTAL CELLS COUNTED 100
[2016-09-10 10:17] LABS: LARGE PLATELETS PRESENT
--- NOTE | 2016-09-10 12:16 | CP.PCM.PN ---
<Manny Otto - Last Filed: 09/10/16 12:14> Subjective - Date & Time of Evaluation Date of Evaluation: 09/10/16 Time of Evaluation: 12:14 - Subjective Subjective: PGY4 GI Fellow Progress Note Patient seen and examined bedside this morning. The patient denies any complaints at present and is tolerating diet without issue. Daughter is at bedside. Understands plan for IR biopsy tomorrow. 12 system ROS performed and negative except where stated. Objective - Vital Signs/Intake and Output Vital Signs (last 24 hours): Temp Pulse Resp BP Pulse Ox 98.5 F 48 L 20 166/57 H 97 09/10/16 11:55 09/10/16 11:55 09/10/16 11:55 09/10/16 11:55 09/10/16 11:55 - Medications Medications: Current Medications Heparin Sodium (Porcine) (Heparin) 5,000 units SC Q12 [facility] PRN Reason: Protocol Last Admin: 09/10/16 08:39 Dose: 5,000 units Piperacillin Sod/Tazobactam (Sod 2.25 gm/ Sodium Chloride) 100 mls @ 100 mls/ hr IVPB Q8 [facility] Last Admin: 09/10/16 09:00 Dose: 100 mls/hr Fluconazole (Diflucan Iv 100 Mg/50 Ml Ns) 50 mls @ 50 mls/hr IVPB DAILY [facility] Last Admin: 09/10/16 10:00 Dose: 50 mls/hr Metronidazole (Flagyl 500mg/100ml Ns) 100 mls @ 100 mls/hr IVPB Q8 [facility] Last Admin: 09/10/16 08:00 Dose: 100 mls/hr Insulin Detemir (Levemir) 6 units SC HS [facility] Last Admin: 09/09/16 21:40 Dose: 6 u Insulin Human Lispro (Humalog) 0 units SC ACHS [facility] PRN Reason: Protocol Last Admin: 09/10/16 11:24 Dose: 1 units Morphine Sulfate (Morphine) 2 mg IVP Q6 PRN PRN Reason: Pain, moderate (4-7) Ondansetron HCl (Zofran Inj) 4 mg IVP Q6 PRN PRN Reason: Nausea/Vomiting Sodium Bicarbonate (Sodium Bicarbonate Tab) 650 mg PO DAILY [facility] Last Admin: 09/10/16 08:40 Dose: 650 mg - Labs Labs: 09/10/16 05:20 09/10/16 05:20 PT 12.4 SECONDS (9.6-11.2) H 09/06/16 05:30 INR 1.19 (0.92-1.08) H 09/06/16 05:30 APTT 28.5 SECONDS (23.3-32.5) 09/06/16 05:30 - Constitutional Appears: Non-toxic, No Acute Distress - Eye Exam Eye Exam: EOMI, PERRL - ENT Exam ENT Exam: Mucous Membranes Moist - Respiratory Exam Respiratory Exam: Clear to Ausculation Bilateral. absent: Rales, Rhonchi, Wheezes - Cardiovascular Exam Cardiovascular Exam: RRR, +S1, +S2 - GI/Abdominal Exam GI & Abdominal Exam: Soft, Normal Bowel Sounds. absent: Distended, Firm, Guarding, Rigid, Tenderness, Organomegaly - Extremities Exam Extremities Exam: Normal Inspection. absent: Pedal Edema - Neurological Exam Neurological Exam: Alert, Awake, Oriented x3 - Psychiatric Exam Psychiatric exam: Normal Affect, Normal Mood Assessment and Plan - Assessment and Plan (Free Text) Assessment: Patient is a 71yo female with PMHx significant for DM, HTN who presented to the ED with abdominal pain, diarrhea and acute renal failure. -Abnormal CT scan of the GI tract - colitis and liver lesion -Fungal UTI -Acute diarrheal illness, resolving -Acute renal failure, resolving Plan: -NPO past MN -IR biopsy of liver lesion tomorrow -PT/PTT/INR ordered for AM -Pending results of IR biopsy, consider colonoscopy this week; she has never had endoscopic evaluation and requires this at some point -On Fluconazole - yeast on Ucx - UTI -Flagyl/Zosyn - colitis <Janina Prado MD - Last Filed: 09/10/16 16:42> Objective - Vital Signs/Intake and Output Vital Signs (last 24 hours): Temp Pulse Resp BP Pulse Ox 98.1 F 48 L 18 161/63 H 97 09/10/16 15:46 09/10/16 15:46 09/10/16 15:46 09/10/16 15:46 09/10/16 15:46 - Medications Medications: Current Medications Heparin Sodium (Porcine) (Heparin) 5,000 units SC Q12 [facility] PRN Reason: Protocol Last Admin: 09/10/16 08:39 Dose: 5,000 units Piperacillin Sod/Tazobactam (Sod 2.25 gm/ Sodium Chloride) 100 mls @ 100 mls/ hr IVPB Q8 [facility] Last Admin: 09/10/16 09:00 Dose: 100 mls/hr Fluconazole (Diflucan Iv 100 Mg/50 Ml Ns) 50 mls @ 50 mls/hr IVPB DAILY [facility] Last Admin: 09/10/16 10:00 Dose: 50 mls/hr Metronidazole (Flagyl 500mg/100ml Ns) 100 mls @ 100 mls/hr IVPB Q8 [facility] Last Admin: 09/10/16 16:25 Dose: 100 mls/hr Insulin Detemir (Levemir) 6 units SC HS [facility] Last Admin: 09/09/16 21:40 Dose: 6 u Insulin Human Lispro (Humalog) 0 units SC ACHS [facility] PRN Reason: Protocol Last Admin: 09/10/16 16:32 Dose: 1 units Morphine Sulfate (Morphine) 2 mg IVP Q6 PRN PRN Reason: Pain, moderate (4-7) Ondansetron HCl (Zofran Inj) 4 mg IVP Q6 PRN PRN Reason: Nausea/Vomiting Sodium Bicarbonate (Sodium Bicarbonate Tab) 650 mg PO DAILY [facility] Last Admin: 09/10/16 08:40 Dose: 650 mg - Labs Labs: 09/10/16 05:20 09/10/16 05:20 PT 12.4 SECONDS (9.6-11.2) H 09/06/16 05:30 INR 1.19 (0.92-1.08) H 09/06/16 05:30 APTT 28.5 SECONDS (23.3-32.5) 09/06/16 05:30 Attending/Attestation - Attestation I have personally seen and examined this patient.: Yes I have fully participated in the care of the patient.: Yes I have reviewed all pertinent clinical information, including history, physical exam and plan: Yes Notes (Text): 09/10/16 16:42 Patient seen in am on rounds with GI fellow. This is a 71 year old female with h /o DM, HTN who presents with abdominal pain, diarrhea, and acute renal failure, found to have liver lesions and possible colitis. Diarrhea resolved. IR liver biopsy pending. MRI liver results show large liver lesion. Hepatitis B and C negative, Hepative A immune, abd IgG within normal limits. Will follow liver biopsy. Needs colonoscopy once acute issues resolved. UTI fungal infection to be treated as ID. Diet as tolerated.
--- NOTE | 2016-09-10 13:36 | CP.PCM.PN ---
Subjective - Date & Time of Evaluation Date of Evaluation: 09/10/16 Time of Evaluation: 06:00 - Subjective Subjective: no new positive cultures for ir bx in am Objective - Vital Signs/Intake and Output Vital Signs (last 24 hours): Temp Pulse Resp BP Pulse Ox 98.5 F 48 L 20 166/57 H 97 09/10/16 11:55 09/10/16 11:55 09/10/16 11:55 09/10/16 11:55 09/10/16 11:55 - Medications Medications: Current Medications Heparin Sodium (Porcine) (Heparin) 5,000 units SC Q12 [facility] PRN Reason: Protocol Last Admin: 09/10/16 08:39 Dose: 5,000 units Piperacillin Sod/Tazobactam (Sod 2.25 gm/ Sodium Chloride) 100 mls @ 100 mls/ hr IVPB Q8 [facility] Last Admin: 09/10/16 09:00 Dose: 100 mls/hr Fluconazole (Diflucan Iv 100 Mg/50 Ml Ns) 50 mls @ 50 mls/hr IVPB DAILY [facility] Last Admin: 09/10/16 10:00 Dose: 50 mls/hr Metronidazole (Flagyl 500mg/100ml Ns) 100 mls @ 100 mls/hr IVPB Q8 [facility] Last Admin: 09/10/16 08:00 Dose: 100 mls/hr Insulin Detemir (Levemir) 6 units SC HS [facility] Last Admin: 09/09/16 21:40 Dose: 6 u Insulin Human Lispro (Humalog) 0 units SC ACHS [facility] PRN Reason: Protocol Last Admin: 09/10/16 11:24 Dose: 1 units Morphine Sulfate (Morphine) 2 mg IVP Q6 PRN PRN Reason: Pain, moderate (4-7) Ondansetron HCl (Zofran Inj) 4 mg IVP Q6 PRN PRN Reason: Nausea/Vomiting Sodium Bicarbonate (Sodium Bicarbonate Tab) 650 mg PO DAILY [facility] Last Admin: 09/10/16 08:40 Dose: 650 mg - Labs Labs: 09/10/16 05:20 09/10/16 05:20 PT 12.4 SECONDS (9.6-11.2) H 09/06/16 05:30 INR 1.19 (0.92-1.08) H 09/06/16 05:30 APTT 28.5 SECONDS (23.3-32.5) 09/06/16 05:30 - Constitutional Appears: Non-toxic, Cachectic, Chronically Ill - Head Exam Head Exam: NORMOCEPHALIC - Eye Exam Eye Exam: PERRL. absent: Scleral icterus - ENT Exam ENT Exam: Mucous Membranes Dry - Neck Exam Neck Exam: absent: Lymphadenopathy - Respiratory Exam Respiratory Exam: Decreased Breath Sounds, Rhonchi - Cardiovascular Exam Cardiovascular Exam: REGULAR RHYTHM, +S1, +S2 - GI/Abdominal Exam GI & Abdominal Exam: Distended, Soft. absent: Tenderness - Rectal Exam Rectal Exam: Deferred - Exam Exam: NORMAL INSPECTION - Extremities Exam Extremities Exam: absent: Pedal Edema - Back Exam Back Exam: absent: CVA tenderness (L), CVA tenderness (R) - Neurological Exam Neurological Exam: Alert, Awake, Oriented x3 - Psychiatric Exam Psychiatric exam: Normal Mood - Skin Skin Exam: Dry Assessment and Plan (1) Acute renal failure Status: Acute (2) Colitis Status: Acute (3) DM2 (diabetes mellitus, type 2) Status: Chronic (4) Dehydration Status: Acute (5) HTN (hypertension) Status: Acute (6) Liver mass, right lobe Status: Acute (7) Sepsis Status: Acute - Assessment and Plan (Free Text) Plan: iv rx renewed
[2016-09-10] MEDS: Insulin Detemir 100 Units/ml Inj SC SCH (22:34)
[2016-09-11] MEDS: metroNIDAZOLE 500mg/100ml NS 100 ML IVPB SCH ×3 (01:33→17:05)
[2016-09-11] MEDS: Insulin Lispro (humaLOG) 100 Units/ml Inj SC SCH ×4 (06:54→21:59)
[2016-09-11 07:37] LABS: PARTIAL THROMBOPLASTIN TIME 24.3 SECONDS (23.3-32.5)
--- NOTE | 2016-09-11 11:07 | CP.PCM.PN ---
Subjective - Date & Time of Evaluation Date of Evaluation: 09/11/16 Time of Evaluation: 10:00 - Subjective Subjective: Feels better Objective - Vital Signs/Intake and Output Vital Signs (last 24 hours): Temp Pulse Resp BP Pulse Ox 98.8 F 50 L 18 175/70 H 97 09/11/16 08:05 09/11/16 09:06 09/11/16 08:05 09/11/16 09:06 09/11/16 08:05 Intake and Output: 09/11/16 09/11/16 06:59 18:59 Intake Total 200 Output Total 1550 Balance -1350 - Medications Medications: Current Medications Amlodipine Besylate (Norvasc) 5 mg PO DAILY [facility] Last Admin: 09/11/16 09:06 Dose: 5 mg Heparin Sodium (Porcine) (Heparin) 5,000 units SC Q12 [facility] PRN Reason: Protocol Last Admin: 09/11/16 09:00 Dose: 5,000 units Piperacillin Sod/Tazobactam (Sod 2.25 gm/ Sodium Chloride) 100 mls @ 100 mls/ hr IVPB Q8 [facility] Last Admin: 09/11/16 09:01 Dose: 100 mls/hr Fluconazole (Diflucan Iv 100 Mg/50 Ml Ns) 50 mls @ 50 mls/hr IVPB DAILY [facility] Last Admin: 09/10/16 10:00 Dose: 50 mls/hr Metronidazole (Flagyl 500mg/100ml Ns) 100 mls @ 100 mls/hr IVPB Q8 [facility] Last Admin: 09/11/16 01:33 Dose: 100 mls/hr Insulin Detemir (Levemir) 6 units SC HS [facility] Last Admin: 09/10/16 22:34 Dose: 6 units Insulin Human Lispro (Humalog) 0 units SC ACHS [facility] PRN Reason: Protocol Last Admin: 09/11/16 06:54 Dose: Not Given Morphine Sulfate (Morphine) 2 mg IVP Q6 PRN PRN Reason: Pain, moderate (4-7) Ondansetron HCl (Zofran Inj) 4 mg IVP Q6 PRN PRN Reason: Nausea/Vomiting Sodium Bicarbonate (Sodium Bicarbonate Tab) 650 mg PO DAILY [facility] Last Admin: 09/11/16 09:01 Dose: 650 mg - Labs Labs: 09/10/16 05:20 09/10/16 05:20 PT 12.9 SECONDS (9.6-11.2) H 09/11/16 06:30 INR 1.24 (0.92-1.08) H 09/11/16 06:30 APTT 24.3 SECONDS (23.3-32.5) 09/11/16 06:30 - Respiratory Exam Additional comments: Lungs clear - Cardiovascular Exam Cardiovascular Exam: REGULAR RHYTHM - Extremities Exam Additional comments: No edema Assessment and Plan - Assessment and Plan (Free Text) Assessment: MIGUEL renal function cintinues to improve Metabolic acidosis/ RTA on bicarb supplementation sepsis DM Plan: Continue current Mx Phos level
[2016-09-11] MEDS: Fluconazole IV 100mg/50 ml NS 50 ML IVPB SCH (11:37)
[2016-09-11 11:46] LABS: BASO # 0.2 K/uL (0.0-0.2); BASO % 1.3 % (0.0-2.0); EOS # 0.3 K/uL (0.0-0.7); EOS % 2.5 % (0.0-4.0); HEMATOCRIT 40.5 % (34.0-47.0); LYMPH # 2.2 K/uL (1.0-4.3); LYMPH % 18.5 % (20.0-40.0); MEAN CELL VOLUME 89.7 fl (81.0-99.0); MEAN CORPUSCULAR HEMOGLOBIN 29.6 pg (27.0-31.0); MEAN PLATELET VOLUME 9.4 fl (7.2-11.7); MONO # 1.3 K/uL (0.0-0.8); MONO % 11.1 % (0.0-10.0); NEUT # 7.9 K/uL (1.8-7.0); NEUT % 66.6 % (50.0-75.0); RED CELL DISTRIBUTION WIDTH 13.1 % (11.5-14.5); WHITE BLOOD COUNT 11.9 K/uL (4.8-10.8)
[2016-09-11 12:02] LABS: BILIRUBIN,TOTAL 1.1 mg/dl (0.2-1.3); POTASSIUM 3.6 MMOL/L (3.6-5.0); TOTAL PROTEIN 6.6 G/DL (6.3-8.2)
[2016-09-11] MEDS ORDERED: Absorbable Gelatin Sponge Size 12-7 ONE (12:16)
[2016-09-11] MEDS ORDERED: Lidocaine 1% Inj (20ml) ONE (12:16)
[2016-09-11] MEDS ORDERED: Midazolam 2 MG/2 ML VIAL ONE (12:38)
[2016-09-11 13:07] LABS: PHOSPHOROUS 3.5 mg/dl (2.5-4.5)
--- NOTE | 2016-09-11 13:07 | PCM.SURG1 ---
Surgeon's Initial Post Op Note - Surgeon's Notes Surgeon: Jeramy Hernandez MD Service Crew Supervisor: NONE Type of Anesthesia: IV Sedation Pre-Operative Diagnosis: Liver mass Operative Findings: US showed hyperechoic liver masses consistent with masses seen on CT scan. Post-Operative Diagnosis: Liver mass Operation Performed: US guided right liver mass biopsy. Specimen/Specimens Removed: 18 gauge core x 3 Estimated Blood Loss: EBL {In ML}: 2 Blood Products Given: N/A Drains Used: No Drains Post-Op Condition: Fair Date of Surgery/Procedure: 09/11/16 Time of Surgery/Procedure: 13:00
[2016-09-11] MEDS: Sodium Chloride 0.9% 1,000 ML IV SCH (15:56)
--- NOTE | 2016-09-11 16:03 | CP.PCM.PN ---
Subjective - Date & Time of Evaluation Date of Evaluation: 09/11/16 Time of Evaluation: 16:01 - Subjective Subjective: pt seen and examined at bedside, daughter also at bedside. No complaints this morning, had liver biopsy which she tolerated well. Patient denies cp, sob. Pt does have leukocytosis today 8 to 11.9, discussed with ID, will keep for another day and monitor. vss,nad. Objective - Vital Signs/Intake and Output Vital Signs (last 24 hours): Temp Pulse Resp BP Pulse Ox 97.5 F L 56 L 18 114/60 98 09/11/16 15:37 09/11/16 15:37 09/11/16 15:37 09/11/16 15:37 09/11/16 15:37 Intake and Output: 09/11/16 09/11/16 06:59 18:59 Intake Total 200 100 Output Total 1550 Balance -1350 100 - Medications Medications: Current Medications Amlodipine Besylate (Norvasc) 5 mg PO DAILY [facility] Last Admin: 09/11/16 09:06 Dose: 5 mg Heparin Sodium (Porcine) (Heparin) 5,000 units SC Q12 [facility] PRN Reason: Protocol Last Admin: 09/11/16 09:00 Dose: 5,000 units Piperacillin Sod/Tazobactam (Sod 2.25 gm/ Sodium Chloride) 100 mls @ 100 mls/ hr IVPB Q8 [facility] Last Admin: 09/11/16 09:01 Dose: 100 mls/hr Fluconazole (Diflucan Iv 100 Mg/50 Ml Ns) 50 mls @ 50 mls/hr IVPB DAILY [facility] Last Admin: 09/11/16 11:37 Dose: 50 mls/hr Metronidazole (Flagyl 500mg/100ml Ns) 100 mls @ 100 mls/hr IVPB Q8 [facility] Last Admin: 09/11/16 11:14 Dose: 100 mls/hr Sodium Chloride (Sodium Chloride 0.9%) 1,000 mls @ 100 mls/hr IV .Q10H [facility] Last Admin: 09/11/16 15:56 Dose: 100 mls Insulin Detemir (Levemir) 6 units SC HS [facility] Last Admin: 09/10/16 22:34 Dose: 6 units Insulin Human Lispro (Humalog) 0 units SC ACHS [facility] PRN Reason: Protocol Last Admin: 09/11/16 12:58 Dose: Not Given Morphine Sulfate (Morphine) 2 mg IVP Q6 PRN PRN Reason: Pain, moderate (4-7) Ondansetron HCl (Zofran Inj) 4 mg IVP Q6 PRN PRN Reason: Nausea/Vomiting Sodium Bicarbonate (Sodium Bicarbonate Tab) 650 mg PO DAILY [facility] Last Admin: 09/11/16 09:01 Dose: 650 mg - Labs Labs: 09/11/16 11:30 09/11/16 11:30 PT 12.9 SECONDS (9.6-11.2) H 09/11/16 06:30 INR 1.24 (0.92-1.08) H 09/11/16 06:30 APTT 24.3 SECONDS (23.3-32.5) 09/11/16 06:30 - Constitutional Appears: Non-toxic, No Acute Distress, Younger Than Stated Age - Head Exam Head Exam: ATRAUMATIC, NORMOCEPHALIC - Eye Exam Eye Exam: EOMI, Normal appearance, PERRL Pupil Exam: NORMAL ACCOMODATION - ENT Exam ENT Exam: Mucous Membranes Moist, Normal Oropharynx - Neck Exam Neck Exam: Full ROM, Normal Inspection - Respiratory Exam Respiratory Exam: Clear to Ausculation Bilateral, NORMAL BREATHING PATTERN. absent: Rales, Respiratory Distress - Cardiovascular Exam Cardiovascular Exam: RRR, +S1, +S2. absent: Gallop, Rubs - GI/Abdominal Exam GI & Abdominal Exam: Soft, Normal Bowel Sounds. absent: Tenderness, Mass, Organomegaly - Extremities Exam Extremities Exam: Normal Capillary Refill. absent: Calf Tenderness - Back Exam Back Exam: absent: CVA tenderness (L), CVA tenderness (R) - Neurological Exam Neurological Exam: Alert, Awake, Oriented x3 - Psychiatric Exam Psychiatric exam: Normal Affect, Normal Mood - Skin Skin Exam: Dry, Warm Assessment and Plan - Assessment and Plan (Free Text) Plan: 71 y/o lady with hx of HTN, DM, visiting from [facility] , was brought in because of weakness, fever, diarrhea, N/V.Patient was found to have elevated WBC 17 , fever, elevated lactic acid and renal failure. She was admitted with diagnosis if sepsis , started on IVF and IV zosyn. ID, GI and nephrology were consulted. CT abdomen showed Large slightly low-attenuation mass lesions in the right liver lobe suspicious for neoplasm, may represent liver metastasis. Suspicious mass lesion or wall thickening at the rectum and hepatic flexure. pt HD stable, afebrile, however has white count today. Will repeat cbc with diff tomorrow. Discussed with ID, will keep patient. MIGUEL improving. Leukocytosis today afebrile WBC 11.9 from 8, discussed with ID, will monitor. repeat cbc in AM Sepsis prob sec to GI infection Pt came in febrile with diarrhea, with elevated WBC and lactic acid was hypotensive however improved with IVF hydrtion on IV Zosyn, Flagyl and Diflucan Blood cx with no growth and urine cx positive for multiple species Continues to have diarrhea, however improving ID consult appreciated and followed Acute renal failure prob sec to Dehydration and Sepsis Metabolic Acidosis sec to RF Renal function improving with IVF . BUN / Cr improving Continue IVF hydration with 1/2 NS Nephrology consult appreciated Sodium Bicarb for Metabolic acidosis Renal US showed normal echogenecity and size , no obstruction started low dose Renagel for elevated Phos Liver lesion r/o malignancy unable to do Triple Phase CT due to MIGUEL MRI of abdomen again showing liver masses suspicious for malignancy CT guided BX by IR completed today. GI consulted Stool for amoeba sent Started Flagyl Colonic thickening ? etiology , may be related to infection , however need to r/o malgnancy outpt Colonoscopy GI consulted Colitis Pt came with fever, abd pain, diarrhea and N/V Stool c/s with no growth OVA parasite- negative on IV Zosyn, Flagyl and Diflucan DM2 (diabetes mellitus, type 2) Chronic accucheck started low dose Levemir diabetic , renal diet Lung nodule < 6cm on CT will need rpt CT in 3-6 mos Yeast UTI suspicious final urine cx positive for multiple species Discussed with Dr bautista and started on Diflucan Continue Zosyn DVT prophylaxis Heparin
[2016-09-11] MEDS: Insulin Detemir 100 Units/ml Inj SC SCH (22:27)
[2016-09-12] MEDS: Sodium Chloride 0.9% 1,000 ML IV SCH ×3 (00:29→21:32)
[2016-09-12] MEDS: metroNIDAZOLE 500mg/100ml NS 100 ML IVPB SCH ×3 (01:20→16:57)
[2016-09-12] MEDS: Insulin Lispro (humaLOG) 100 Units/ml Inj SC SCH ×4 (06:30→21:29)
--- NOTE | 2016-09-12 08:19 | CP.PCM.PN ---
<Hilda Klein - Last Filed: 09/12/16 08:36> Subjective - Date & Time of Evaluation Date of Evaluation: 09/12/16 Time of Evaluation: 08:00 - Subjective Subjective: This is a GI progress note : Dr. Prado Pt seen and examined at bedside this morning in presence of daughter, they would like to know when she was going home. patient and daughter informed on plan to have colonoscopy done tomorrow morning, so she will not be going home today; Pt and daughter both expresses understanding. Does not have any complaints. Nurses notes and overnight events noted. Objective - Vital Signs/Intake and Output Vital Signs (last 24 hours): Temp Pulse Resp BP Pulse Ox 98.6 F 52 L 20 150/66 95 09/12/16 04:46 09/12/16 04:46 09/12/16 04:46 09/12/16 04:46 09/12/16 04:46 Intake and Output: 09/12/16 09/12/16 06:59 18:59 Intake Total 200 Output Total 1400 Balance -1200 - Medications Medications: Current Medications Acetaminophen (Tylenol 325mg Tab) 650 mg PO Q6 PRN PRN Reason: Pain, Mild (1-3) Acetaminophen (Tylenol 325mg Tab) 650 mg PO Q6 PRN PRN Reason: Fever >100.4 F Last Admin: 09/11/16 22:22 Dose: 650 mg Amlodipine Besylate (Norvasc) 5 mg PO DAILY [facility] Last Admin: 09/11/16 09:06 Dose: 5 mg Bisacodyl (Dulcolax) 5 mg PO ONCE ONE Stop: 09/12/16 08:31 Heparin Sodium (Porcine) (Heparin) 5,000 units SC Q12 [facility] PRN Reason: Protocol Last Admin: 09/11/16 22:27 Dose: 5,000 units Piperacillin Sod/Tazobactam (Sod 2.25 gm/ Sodium Chloride) 100 mls @ 100 mls/ hr IVPB Q8 [facility] Last Admin: 09/12/16 00:29 Dose: 100 mls/hr Fluconazole (Diflucan Iv 100 Mg/50 Ml Ns) 50 mls @ 50 mls/hr IVPB DAILY [facility] Last Admin: 09/11/16 11:37 Dose: 50 mls/hr Metronidazole (Flagyl 500mg/100ml Ns) 100 mls @ 100 mls/hr IVPB Q8 [facility] Last Admin: 09/12/16 01:20 Dose: 100 mls/hr Sodium Chloride (Sodium Chloride 0.9%) 1,000 mls @ 100 mls/hr IV .Q10H [facility] Last Admin: 09/12/16 00:29 Dose: 100 mls/hr Insulin Detemir (Levemir) 6 units SC HS [facility] Last Admin: 09/11/16 22:27 Dose: 6 units Insulin Human Lispro (Humalog) 0 units SC ACHS [facility] PRN Reason: Protocol Last Admin: 09/12/16 06:30 Dose: Not Given Morphine Sulfate (Morphine) 2 mg IVP Q6 PRN PRN Reason: Pain, moderate (4-7) Ondansetron HCl (Zofran Inj) 4 mg IVP Q6 PRN PRN Reason: Nausea/Vomiting Polyethylene Glycol/Electrolytes (Golytely) 4,000 ml PO ONCE ONE Stop: 09/12/16 13:01 Sodium Bicarbonate (Sodium Bicarbonate Tab) 650 mg PO DAILY [facility] Last Admin: 09/11/16 09:01 Dose: 650 mg - Labs Labs: 09/11/16 11:30 09/11/16 11:30 PT 12.9 SECONDS (9.6-11.2) H 09/11/16 06:30 INR 1.24 (0.92-1.08) H 09/11/16 06:30 APTT 24.3 SECONDS (23.3-32.5) 09/11/16 06:30 - Constitutional Appears: Non-toxic, No Acute Distress - Head Exam Head Exam: NORMOCEPHALIC - Eye Exam Eye Exam: Normal appearance, PERRL Pupil Exam: NORMAL ACCOMODATION - ENT Exam ENT Exam: Mucous Membranes Moist - Respiratory Exam Respiratory Exam: Clear to Ausculation Bilateral, NORMAL BREATHING PATTERN. absent: Rhonchi, Wheezes - Cardiovascular Exam Cardiovascular Exam: REGULAR RHYTHM, +S1, +S2 - GI/Abdominal Exam GI & Abdominal Exam: Soft, Normal Bowel Sounds. absent: Tenderness - Extremities Exam Extremities Exam: absent: Calf Tenderness, Pedal Edema - Neurological Exam Neurological Exam: Alert, Awake, CN II-XII Intact, Oriented x3 Assessment and Plan - Assessment and Plan (Free Text) Assessment: Patient is a 71yo female with PMHx significant for DM, HTN who presented to the ED with abdominal pain, diarrhea and acute renal failure. -Abnormal CT scan of the GI tract - colon thickening and liver lesion -Fungal UTI -Acute diarrheal illness - no more episodes of diarrhea -Acute renal failure, resolving Plan: -Colonoscopy scheduled for tomorrow (09/13/16) morning -pt started on clear liquid diet -2 tabs of dulcolax ordered for now, golytely to start at 1pm (pt nurse made aware) -IR biopsy of liver lesion was done yesterday, pathology report pending- will follow up -On Fluconazole - yeast on Ucx - UTI -Flagyl/Zosyn - colitis <Janina Prado MD - Last Filed: 09/12/16 11:34> Objective - Vital Signs/Intake and Output Vital Signs (last 24 hours): Temp Pulse Resp BP Pulse Ox 98.6 F 51 L 20 160/70 H 95 09/12/16 04:46 09/12/16 08:27 09/12/16 04:46 09/12/16 08:27 09/12/16 04:46 Intake and Output: 09/12/16 09/12/16 06:59 18:59 Intake Total 200 Output Total 1400 Balance -1200 - Medications Medications: Current Medications Acetaminophen (Tylenol 325mg Tab) 650 mg PO Q6 PRN PRN Reason: Pain, Mild (1-3) Acetaminophen (Tylenol 325mg Tab) 650 mg PO Q6 PRN PRN Reason: Fever >100.4 F Last Admin: 09/11/16 22:22 Dose: 650 mg Amlodipine Besylate (Norvasc) 5 mg PO DAILY [facility] Last Admin: 09/12/16 08:27 Dose: 5 mg Heparin Sodium (Porcine) (Heparin) 5,000 units SC Q12 [facility] PRN Reason: Protocol Last Admin: 09/12/16 08:26 Dose: 5,000 units Piperacillin Sod/Tazobactam (Sod 2.25 gm/ Sodium Chloride) 100 mls @ 100 mls/ hr IVPB Q8 [facility] Last Admin: 09/12/16 00:29 Dose: 100 mls/hr Fluconazole (Diflucan Iv 100 Mg/50 Ml Ns) 50 mls @ 50 mls/hr IVPB DAILY [facility] Last Admin: 09/12/16 08:25 Dose: 50 mls/hr Metronidazole (Flagyl 500mg/100ml Ns) 100 mls @ 100 mls/hr IVPB Q8 [facility] Last Admin: 09/12/16 09:40 Dose: 100 mls/hr Sodium Chloride (Sodium Chloride 0.9%) 1,000 mls @ 100 mls/hr IV .Q10H [facility] Last Admin: 09/12/16 00:29 Dose: 100 mls/hr Insulin Detemir (Levemir) 6 units SC HS [facility] Last Admin: 09/11/16 22:27 Dose: 6 units Insulin Human Lispro (Humalog) 0 units SC ACHS [facility] PRN Reason: Protocol Last Admin: 09/12/16 06:30 Dose: Not Given Morphine Sulfate (Morphine) 2 mg IVP Q6 PRN PRN Reason: Pain, moderate (4-7) Ondansetron HCl (Zofran Inj) 4 mg IVP Q6 PRN PRN Reason: Nausea/Vomiting Polyethylene Glycol/Electrolytes (Golytely) 4,000 ml PO ONCE ONE Stop: 09/12/16 13:01 Potassium Chloride (Potassium Chloride Oral Soln) 40 meq PO ONCE ONE Stop: 09/12/16 11:16 Sodium Bicarbonate (Sodium Bicarbonate Tab) 650 mg PO DAILY [facility] Last Admin: 09/12/16 08:27 Dose: 650 mg - Labs Labs: 09/12/16 09:00 09/12/16 09:00 PT 12.9 SECONDS (9.6-11.2) H 09/11/16 06:30 INR 1.24 (0.92-1.08) H 09/11/16 06:30 APTT 24.3 SECONDS (23.3-32.5) 09/11/16 06:30 Attending/Attestation - Attestation I have personally seen and examined this patient.: Yes I have fully participated in the care of the patient.: Yes I have reviewed all pertinent clinical information, including history, physical exam and plan: Yes Notes (Text): 09/12/16 11:09 71 yr old female with PMHx significant for DM, HTN who presented to the ED with abdominal pain, diarrhea and acute renal failure and concern for liver lesion s/ p biopsy and colon thickening on CT scan. Colonoscopy scheduled for am- start dulcolax and golytely today. Clear liquid diet and NPO past midnight. Will follow liver biopsy. Discussed with daughter.
[2016-09-12] MEDS: Fluconazole IV 100mg/50 ml NS 50 ML IVPB SCH (08:25)
[2016-09-12] MEDS ORDERED: Bisacodyl 5mg EC Tab PO ONE ×4 (08:30→12:45)
[2016-09-12 09:39] LABS: BASO # 0.2 K/uL (0.0-0.2); BASO % 1.3 % (0.0-2.0); EOS # 0.3 K/uL (0.0-0.7); EOS % 2.7 % (0.0-4.0); LYMPH # 1.8 K/uL (1.0-4.3); MEAN CORPUSCULAR HEMOGLOBIN 29.3 pg (27.0-31.0); MEAN CORPUSCULAR HGB CONC 33.7 g/dL (33.0-37.0); MEAN PLATELET VOLUME 8.2 fl (7.2-11.7); MONO # 0.9 K/uL (0.0-0.8); MONO % 7.4 % (0.0-10.0); NEUT # 9.1 K/uL (1.8-7.0); NEUT % 73.6 % (50.0-75.0); NRBC % 0.1 % (0.0-0.0); RED CELL DISTRIBUTION WIDTH 13.4 % (11.5-14.5); WHITE BLOOD COUNT 12.3 K/uL (4.8-10.8)
[2016-09-12 09:40] LABS: MEAN CELL VOLUME 87.1 fl (81.0-99.0)
[2016-09-12 09:51] LABS: BILIRUBIN,TOTAL 0.9 mg/dl (0.2-1.3); CALCIUM 8.5 mg/dL (8.4-10.2); POTASSIUM 3.3 MMOL/L (3.6-5.0); TOTAL PROTEIN 6.4 G/DL (6.3-8.2)
--- NOTE | 2016-09-12 10:55 | CP.PCM.PN ---
Subjective - Date & Time of Evaluation Date of Evaluation: 09/12/16 Time of Evaluation: 10:30 - Subjective Subjective: No fever had one soft BM no CP no SOB no abd pain Discussed treatment plan with pt's karlie who was at bedside Objective - Vital Signs/Intake and Output Vital Signs (last 24 hours): Temp Pulse Resp BP Pulse Ox 98.6 F 51 L 20 160/70 H 95 09/12/16 04:46 09/12/16 08:27 09/12/16 04:46 09/12/16 08:27 09/12/16 04:46 Intake and Output: 09/12/16 09/12/16 06:59 18:59 Intake Total 200 Output Total 1400 Balance -1200 - Medications Medications: Current Medications Acetaminophen (Tylenol 325mg Tab) 650 mg PO Q6 PRN PRN Reason: Pain, Mild (1-3) Acetaminophen (Tylenol 325mg Tab) 650 mg PO Q6 PRN PRN Reason: Fever >100.4 F Last Admin: 09/11/16 22:22 Dose: 650 mg Amlodipine Besylate (Norvasc) 5 mg PO DAILY [facility] Last Admin: 09/12/16 08:27 Dose: 5 mg Heparin Sodium (Porcine) (Heparin) 5,000 units SC Q12 [facility] PRN Reason: Protocol Last Admin: 09/12/16 08:26 Dose: 5,000 units Piperacillin Sod/Tazobactam (Sod 2.25 gm/ Sodium Chloride) 100 mls @ 100 mls/ hr IVPB Q8 [facility] Last Admin: 09/12/16 00:29 Dose: 100 mls/hr Fluconazole (Diflucan Iv 100 Mg/50 Ml Ns) 50 mls @ 50 mls/hr IVPB DAILY [facility] Last Admin: 09/12/16 08:25 Dose: 50 mls/hr Metronidazole (Flagyl 500mg/100ml Ns) 100 mls @ 100 mls/hr IVPB Q8 [facility] Last Admin: 09/12/16 09:40 Dose: 100 mls/hr Sodium Chloride (Sodium Chloride 0.9%) 1,000 mls @ 100 mls/hr IV .Q10H [facility] Last Admin: 09/12/16 00:29 Dose: 100 mls/hr Insulin Detemir (Levemir) 6 units SC HS [facility] Last Admin: 09/11/16 22:27 Dose: 6 units Insulin Human Lispro (Humalog) 0 units SC ACHS [facility] PRN Reason: Protocol Last Admin: 09/12/16 06:30 Dose: Not Given Morphine Sulfate (Morphine) 2 mg IVP Q6 PRN PRN Reason: Pain, moderate (4-7) Ondansetron HCl (Zofran Inj) 4 mg IVP Q6 PRN PRN Reason: Nausea/Vomiting Polyethylene Glycol/Electrolytes (Golytely) 4,000 ml PO ONCE ONE Stop: 09/12/16 13:01 Sodium Bicarbonate (Sodium Bicarbonate Tab) 650 mg PO DAILY [facility] Last Admin: 09/12/16 08:27 Dose: 650 mg - Labs Labs: 09/12/16 09:00 09/12/16 09:00 PT 12.9 SECONDS (9.6-11.2) H 09/11/16 06:30 INR 1.24 (0.92-1.08) H 09/11/16 06:30 APTT 24.3 SECONDS (23.3-32.5) 09/11/16 06:30 - Constitutional Appears: No Acute Distress - Head Exam Head Exam: NORMAL INSPECTION, NORMOCEPHALIC - Eye Exam Eye Exam: EOMI, Normal appearance Pupil Exam: NORMAL ACCOMODATION - ENT Exam ENT Exam: Mucous Membranes Moist, Normal External Ear Exam - Neck Exam Neck Exam: Full ROM. absent: Meningismus - Respiratory Exam Respiratory Exam: NORMAL BREATHING PATTERN. absent: Respiratory Distress - Cardiovascular Exam Cardiovascular Exam: REGULAR RHYTHM, +S1, +S2 - GI/Abdominal Exam GI & Abdominal Exam: Soft, Normal Bowel Sounds. absent: Tenderness - Extremities Exam Extremities Exam: Normal Capillary Refill. absent: Calf Tenderness, Pedal Edema - Back Exam Back Exam: absent: CVA tenderness (L), CVA tenderness (R), paraspinal tenderness , vertebral tenderness - Neurological Exam Neurological Exam: Alert, Awake, CN II-XII Intact Additional comments: oriented to person and place - Psychiatric Exam Psychiatric exam: Normal Affect, Normal Mood - Skin Skin Exam: Dry, Normal Color, Warm Assessment and Plan (1) Sepsis Status: Acute (2) Acute renal failure Status: Acute (3) Liver lesion Status: Acute (4) Colonic thickening Status: Acute (5) Colitis Status: Acute (6) DM2 (diabetes mellitus, type 2) Status: Chronic (7) Dehydration Status: Acute (8) Lung nodule < 6cm on CT Status: Acute (9) Yeast UTI Status: Acute (10) DVT prophylaxis Status: Acute - Assessment and Plan (Free Text) Assessment: 71 y/o lady with hx of HTN, DM, visiting from [facility] , was brought in because of weakness, fever, diarrhea, N/V.Patient was found to have elevated WBC 17 , fever, elevated lactic acid and renal failure. She was admitted with diagnosis if sepsis , started on IVF and IV zosyn. ID, GI and nephrology were consulted. CT abdomen showed Large slightly low-attenuation mass lesions in the right liver lobe suspicious for neoplasm, may represent liver metastasis. Suspicious mass lesion or wall thickening at the rectum and hepatic flexure. Sepsis prob sec to GI infection Pt came in febrile with diarrhea, with elevated WBC and lactic acid was hypotensive however improved with IVF hydrtion on IV Zosyn, Flagyl and Diflucan Blood cx with no growth and urine cx positive for multiple species Continues to have diarrhea, however improving ID consult appreciated and followed Acute renal failure prob sec to Dehydration and Sepsis Metabolic Acidosis sec to RF Renal function improving with IVF . BUN / Cr improving, Crea 1.3 today Continue IVF hydration with 1/2 NS Nephrology consult appreciated Sodium Bicarb given for Metabolic acidosis- d/c Bicarb tabs Renal US showed normal echogenecity and size , no obstruction started low dose Renagel for elevated Phos- off Renagel Liver lesion r/o malignancy unable to do Triple Phase CT due to MIGUEL MRI of abdomen again showing liver masses suspicious for malignancy CT guided BX by IR done 09/11- ff up pathology GI consulted- plan for Colonoscopy in am Stool for amoeba sent Ova and Parasite : negative Started Flagyl Colonic thickening ? etiology , may be related to infection , however need to r/o malignancy Colonoscopy in am GI consulted Colitis Pt came with fever, abd pain, diarrhea and N/V Stool c/s with no growth OVA parasite- negative on IV Zosyn, Flagyl and Diflucan DM2 (diabetes mellitus, type 2) Chronic accucheck started low dose Levemir - hold tonight - pt NPO diabetic , renal diet Lung nodule < 6cm on CT will need rpt CT in 3-6 mos Yeast UTI suspicious final urine cx positive for multiple species Discussed with Dr bautista and started on Diflucan #6/7- will d/c tomorrow DVT prophylaxis Heparin- hold pt for Colonoscopy in am
[2016-09-12] MEDS ORDERED: Potassium Chloride 20 mEq/15 ml LIQ UD PO ONE (11:15)
[2016-09-12] MEDS ORDERED: Peg-Electrolyte Oral Soln 4L (Golytely) PO ONE (13:00)
--- NOTE | 2016-09-12 14:27 | CARD ---
APPROVED REPORT EKG Measurement Heart [id number] ME [id number] <Conclusion> Sinus bradycardia with sinus arrhythmia Otherwise normal ECG
--- NOTE | 2016-09-12 15:26 | CP.PCM.PN ---
Subjective - Date & Time of Evaluation Date of Evaluation: 09/12/16 Time of Evaluation: 11:00 - Subjective Subjective: Follow up Nephrology Consultation Note Assessment: Acute Kidney Injury improved (cr 1.3) and acidosis resolved Hypokalemia DM and HTN Liver mass Plan HTN control: may resume her home meds as atenolol supplement KDUR. Glycemic control Further work up for liver mass as per primary team Thanks for allowing me to participate in care of your patient. Will follow patient with you. Please call if any Qs Dr Rickey Morataya Office: [phone] Subjective: Noted events overnight. Patients feels okay. Denies chest pain, palpitation, shortness of breath, leg swelling. has decreased appetite. being planned for colonoscopy tomorrow. had liver biopsy Physical Examination: General Appearance: Comfortable, in no acute respiratory distress, co- operative. Vitals reviewed and noted as below Lungs: Normal respiratory rate/effort. Breath sounds bilateral equal and clear Heart: Normal rate. s1s2 normal. No rub or gallop. Extremities: no edema. Neurological: Patient is alert, awake and oriented to person, place and time. No focal deficit. Strength bilateral appropriate and equal Skin: Warm and dry. Normal turgor. No rash. Palpitation: Normal elasticity for age Abdomen: Abdomen is soft. Bowel sounds +. There is no abdominal tenderness, no guarding/rigidity or organomegaly : kidney or bladder not palpable Labs/imaging reviewed. Past medical history, past surgical history, family history, social history, allergy reviewed and noted as below Objective - Vital Signs/Intake and Output Vital Signs (last 24 hours): Temp Pulse Resp BP Pulse Ox 98.2 F 61 20 130/65 97 09/12/16 13:00 09/12/16 13:00 09/12/16 13:00 09/12/16 13:00 09/12/16 13:00 Intake and Output: 09/12/16 09/12/16 06:59 18:59 Intake Total 200 Output Total 1400 Balance -1200 - Medications Medications: Current Medications Acetaminophen (Tylenol 325mg Tab) 650 mg PO Q6 PRN PRN Reason: Pain, Mild (1-3) Acetaminophen (Tylenol 325mg Tab) 650 mg PO Q6 PRN PRN Reason: Fever >100.4 F Last Admin: 09/11/16 22:22 Dose: 650 mg Amlodipine Besylate (Norvasc) 5 mg PO DAILY [facility] Last Admin: 09/12/16 08:27 Dose: 5 mg Heparin Sodium (Porcine) (Heparin) 5,000 units SC Q12 [facility] PRN Reason: Protocol Last Admin: 09/12/16 08:26 Dose: 5,000 units Piperacillin Sod/Tazobactam (Sod 2.25 gm/ Sodium Chloride) 100 mls @ 100 mls/ hr IVPB Q8 [facility] Last Admin: 09/12/16 11:43 Dose: 100 mls/hr Fluconazole (Diflucan Iv 100 Mg/50 Ml Ns) 50 mls @ 50 mls/hr IVPB DAILY [facility] Last Admin: 09/12/16 08:25 Dose: 50 mls/hr Metronidazole (Flagyl 500mg/100ml Ns) 100 mls @ 100 mls/hr IVPB Q8 [facility] Last Admin: 09/12/16 09:40 Dose: 100 mls/hr Sodium Chloride (Sodium Chloride 0.9%) 1,000 mls @ 100 mls/hr IV .Q10H [facility] Last Admin: 09/12/16 00:29 Dose: 100 mls/hr Insulin Detemir (Levemir) 6 units SC HS [facility] Last Admin: 09/11/16 22:27 Dose: 6 units Insulin Human Lispro (Humalog) 0 units SC ACHS [facility] PRN Reason: Protocol Last Admin: 09/12/16 11:51 Dose: Not Given Morphine Sulfate (Morphine) 2 mg IVP Q6 PRN PRN Reason: Pain, moderate (4-7) Ondansetron HCl (Zofran Inj) 4 mg IVP Q6 PRN PRN Reason: Nausea/Vomiting Sodium Bicarbonate (Sodium Bicarbonate Tab) 650 mg PO DAILY [facility] Last Admin: 09/12/16 08:27 Dose: 650 mg - Labs Labs: 09/12/16 09:00 09/12/16 09:00 PT 12.9 SECONDS (9.6-11.2) H 09/11/16 06:30 INR 1.24 (0.92-1.08) H 09/11/16 06:30 APTT 24.3 SECONDS (23.3-32.5) 09/11/16 06:30
[2016-09-12] MEDS ORDERED: Piperacillin/Tazobact 3.375 GM in Sodium Chloride 0.9% 100 ML IVPB SCH (16:17)
[2016-09-12] MEDS: Piperacillin/Tazobact 3.375 GM in Sodium Chloride 0.9% 100 ML IVPB SCH (17:54)
[2016-09-13] MEDS: Piperacillin/Tazobact 3.375 GM in Sodium Chloride 0.9% 100 ML IVPB SCH ×3 (01:23→18:00)
[2016-09-13 01:38] LABS: CALCIUM 8.7 mg/dL (8.4-10.2); MAGNESIUM 1.2 MG/DL (1.6-2.3); PHOSPHOROUS 2.6 mg/dl (2.5-4.5); POTASSIUM 3.9 MMOL/L (3.6-5.0)
[2016-09-13] MEDS: metroNIDAZOLE 500mg/100ml NS 100 ML IVPB SCH ×3 (02:32→17:21)
[2016-09-13] MEDS: Insulin Lispro (humaLOG) 100 Units/ml Inj SC SCH ×3 (06:38→16:51)
[2016-09-13 07:09] LABS: HEMATOCRIT 36.5 % (34.0-47.0); MEAN CELL VOLUME 89.1 fl (81.0-99.0); MEAN CORPUSCULAR HEMOGLOBIN 29.7 pg (27.0-31.0); MEAN CORPUSCULAR HGB CONC 33.3 g/dL (33.0-37.0); RED CELL DISTRIBUTION WIDTH 13.4 % (11.5-14.5); WHITE BLOOD COUNT 9.9 K/uL (4.8-10.8)
[2016-09-13] MEDS ORDERED: Magnesium Sulfate 2 gm/50 ml 2 GM/50 ML BAG IVPB ONE (08:02)
[2016-09-13 08:13] LABS: CALCIUM 8.3 mg/dL (8.4-10.2); POTASSIUM 3.7 MMOL/L (3.6-5.0)
[2016-09-13] MEDS: Fluconazole IV 100mg/50 ml NS 50 ML IVPB SCH (08:46)
--- NOTE | 2016-09-13 10:48 | CP.PCM.PN ---
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 Objective - Vital Signs/Intake and Output Vital Signs (last 24 hours): Temp Pulse Resp BP Pulse Ox 98.3 F 56 L 18 139/54 L 95 09/13/16 08:23 09/13/16 08:23 09/13/16 08:23 09/13/16 08:23 09/13/16 08:23 Intake and Output: 09/13/16 09/13/16 06:59 18:59 Output Total 2650 Balance -2650 - Medications Medications: Current Medications Acetaminophen (Tylenol 325mg Tab) 650 mg PO Q6 PRN PRN Reason: Pain, Mild (1-3) Acetaminophen (Tylenol 325mg Tab) 650 mg PO Q6 PRN PRN Reason: Fever >100.4 F Last Admin: 09/11/16 22:22 Dose: 650 mg Amlodipine Besylate (Norvasc) 5 mg PO DAILY [facility] Last Admin: 09/13/16 09:11 Dose: Not Given Heparin Sodium (Porcine) (Heparin) 5,000 units SC Q12 [facility] PRN Reason: Protocol Last Admin: 09/12/16 08:26 Dose: 5,000 units Fluconazole (Diflucan Iv 100 Mg/50 Ml Ns) 50 mls @ 50 mls/hr IVPB DAILY [facility] Last Admin: 09/12/16 08:25 Dose: 50 mls/hr Metronidazole (Flagyl 500mg/100ml Ns) 100 mls @ 100 mls/hr IVPB Q8 [facility] Last Admin: 09/13/16 02:32 Dose: 100 mls/hr Sodium Chloride (Sodium Chloride 0.9%) 1,000 mls @ 100 mls/hr IV .Q10H [facility] Last Admin: 09/12/16 21:32 Dose: 100 mls/hr Piperacillin Sod/Tazobactam (Sod 3.375 gm/ Sodium Chloride) 100 mls @ 100 mls/ hr IVPB Q8 [facility] Last Admin: 09/13/16 09:14 Dose: 100 mls/hr Insulin Detemir (Levemir) 6 units SC HS [facility] Last Admin: 09/11/16 22:27 Dose: 6 units Insulin Human Lispro (Humalog) 0 units SC ACHS [facility] PRN Reason: Protocol Last Admin: 09/13/16 06:38 Dose: Not Given Ondansetron HCl (Zofran Inj) 4 mg IVP Q6 PRN PRN Reason: Nausea/Vomiting - Labs Labs: 09/13/16 06:20 09/13/16 04:25 PT 12.9 SECONDS (9.6-11.2) H 09/11/16 06:30 INR 1.24 (0.92-1.08) H 09/11/16 06:30 APTT 24.3 SECONDS (23.3-32.5) 09/11/16 06:30 - Constitutional Appears: No Acute Distress - Head Exam Head Exam: NORMAL INSPECTION, NORMOCEPHALIC - Eye Exam Eye Exam: EOMI, Normal appearance Pupil Exam: NORMAL ACCOMODATION - ENT Exam ENT Exam: Mucous Membranes Moist, Normal External Ear Exam - Neck Exam Neck Exam: Full ROM. absent: Meningismus - Respiratory Exam Respiratory Exam: NORMAL BREATHING PATTERN. absent: Respiratory Distress - Cardiovascular Exam Cardiovascular Exam: REGULAR RHYTHM, +S1, +S2 - GI/Abdominal Exam GI & Abdominal Exam: Soft, Normal Bowel Sounds. absent: Tenderness - Extremities Exam Extremities Exam: Normal Capillary Refill. absent: Calf Tenderness, Pedal Edema - Back Exam Back Exam: absent: CVA tenderness (L), CVA tenderness (R), paraspinal tenderness , vertebral tenderness - Neurological Exam Neurological Exam: Alert, Awake, CN II-XII Intact Additional comments: oriented to person and place - Psychiatric Exam Psychiatric exam: Normal Affect, Normal Mood - Skin Skin Exam: Dry, Normal Color, Warm Assessment and Plan (1) Sepsis Status: Acute (2) Acute renal failure Status: Acute (3) Liver lesion Status: Acute (4) Colonic thickening Status: Acute (5) Colitis Status: Acute (6) DM2 (diabetes mellitus, type 2) Status: Chronic (7) Dehydration Status: Acute (8) Lung nodule < 6cm on CT Status: Acute (9) Yeast UTI Status: Acute (10) DVT prophylaxis Status: Acute - Assessment and Plan (Free Text) Assessment: 71 y/o lady with hx of HTN, DM, visiting from [facility] , was brought in because of weakness, fever, diarrhea, N/V.Patient was found to have elevated WBC 17 , fever, elevated lactic acid and renal failure. She was admitted with diagnosis if sepsis , started on IVF and IV zosyn. ID, GI and nephrology were consulted. CT abdomen showed Large slightly low-attenuation mass lesions in the right liver lobe suspicious for neoplasm, may represent liver metastasis. Suspicious mass lesion or wall thickening at the rectum and hepatic flexure. Sepsis prob sec to GI infection Pt came in febrile with diarrhea, with elevated WBC and lactic acid was hypotensive however improved with IVF hydrtion on IV Zosyn, Flagyl and Diflucan ( d/c diflucan , completed 7 days ) Blood cx with no growth and urine cx positive for multiple species Continues to have diarrhea, however improving ID consult appreciated and followed Acute renal failure prob sec to Dehydration and Sepsis Metabolic Acidosis sec to RF Renal function improved with IVF . BUN / Cr improved to normal Nephrology consult appreciated Sodium Bicarb given for Metabolic acidosis- d/c Bicarb tabs Renal US showed normal echogenecity and size , no obstruction started low dose Renagel for elevated Phos- off Renagel Liver lesion r/o malignancy unable to do Triple Phase CT due to MIGUEL MRI of abdomen again showing liver masses suspicious for malignancy CT guided BX by IR done 09/11- ff up pathology with Dr Jay- she said looks like Metastatic AdenoCA ( will await final result) GI consulted- plan for Colonoscopy today Stool for amoeba sent Ova and Parasite : negative DR Prakash Tan consulted Colonic thickening ? etiology , may be related to infection , however need to r/o malignancy Colonoscopy today GI consulted Colitis Pt came with fever, abd pain, diarrhea and N/V Stool c/s with no growth OVA parasite- negative on IV Zosyn, Flagyl and Diflucan DM2 (diabetes mellitus, type 2) Chronic accucheck started low dose Levemir - hold tonight - pt NPO diabetic , renal diet Lung nodule < 6cm on CT will need rpt CT in 3-6 mos Yeast UTI suspicious final urine cx positive for multiple species Discussed with Dr bautista and started on Diflucan , completed #11/10- will d/c DVT prophylaxis Heparin- hold pt for Colonoscopy
--- NOTE | 2016-09-13 11:31 | CP.PCM.CON ---
History of Present Illness - History of Present Illness History of Present Illness: Cardiology Consult 71 y/o h/f admitted with n/v sepsis Acute renal failure DM II Cardiology consult called for ?Atrial Fibrillation? I reviewed the 2 EKG's from last night both EKGs show 2* AV Block Wenckebach Phenomena Usually the pt is in a Bradycardic rhythm The patient was asymptomatic at the time Denies Palpitations / chest pain Past Patient History - Past Medical History & Family History Past Medical History?: Yes - Past Social History Smoking Status: Never Smoked - CARDIAC Hx Hypercholesterolemia: Yes Hx Hypertension: Yes - PULMONARY Hx Respiratory Disorders: No - NEUROLOGICAL Hx Neurological Disorder: No - HEENT Hx HEENT Problems: No - RENAL Hx Chronic Kidney Disease: No - ENDOCRINE/METABOLIC Hx Endocrine Disorders: Yes Hx Diabetes Mellitus Type 2: Yes - HEMATOLOGICAL/ONCOLOGICAL Hx Blood Disorders: No Hx AIDS: No Hx Human Immunodeficiency Virus (HIV): No - INTEGUMENTARY Hx Dermatological Problems: No - MUSCULOSKELETAL/RHEUMATOLOGICAL Hx Musculoskeletal Disorders: No Hx Falls: Yes - GASTROINTESTINAL Hx Gastrointestinal Disorders: No - GENITOURINARY/GYNECOLOGICAL Hx Genitourinary Disorders: No - PSYCHIATRIC Hx Psychophysiologic Disorder: No Hx Substance Use: No - SURGICAL HISTORY Hx Surgeries: Yes Hx Section: Yes - ANESTHESIA Hx Anesthesia: Yes Hx Anesthesia Reactions: No Meds Allergies/Adverse Reactions: Allergies Allergy/AdvReac Type Severity Reaction Status Date / Time No Known Allergies Allergy Verified 09/05/16 10:14 - Medications Medications: Current Medications Acetaminophen (Tylenol 325mg Tab) 650 mg PO Q6 PRN PRN Reason: Pain, Mild (1-3) Acetaminophen (Tylenol 325mg Tab) 650 mg PO Q6 PRN PRN Reason: Fever >100.4 F Last Admin: 09/11/16 22:22 Dose: 650 mg Amlodipine Besylate (Norvasc) 5 mg PO DAILY [facility] Last Admin: 09/13/16 09:11 Dose: Not Given Heparin Sodium (Porcine) (Heparin) 5,000 units SC Q12 [facility] PRN Reason: Protocol Last Admin: 09/12/16 08:26 Dose: 5,000 units Fluconazole (Diflucan Iv 100 Mg/50 Ml Ns) 50 mls @ 50 mls/hr IVPB DAILY [facility] Last Admin: 09/12/16 08:25 Dose: 50 mls/hr Metronidazole (Flagyl 500mg/100ml Ns) 100 mls @ 100 mls/hr IVPB Q8 [facility] Last Admin: 09/13/16 02:32 Dose: 100 mls/hr Sodium Chloride (Sodium Chloride 0.9%) 1,000 mls @ 100 mls/hr IV .Q10H [facility] Last Admin: 09/12/16 21:32 Dose: 100 mls/hr Piperacillin Sod/Tazobactam (Sod 3.375 gm/ Sodium Chloride) 100 mls @ 100 mls/ hr IVPB Q8 [facility] Last Admin: 09/13/16 09:14 Dose: 100 mls/hr Insulin Detemir (Levemir) 6 units SC HS [facility] Last Admin: 09/11/16 22:27 Dose: 6 units Insulin Human Lispro (Humalog) 0 units SC ACHS [facility] PRN Reason: Protocol Last Admin: 09/13/16 06:38 Dose: Not Given Ondansetron HCl (Zofran Inj) 4 mg IVP Q6 PRN PRN Reason: Nausea/Vomiting Results - Vital Signs Recent Vital Signs: Last Vital Signs Temp 98.3 F 09/13/16 08:23 Pulse 56 L 09/13/16 09:00 Resp 18 09/13/16 08:23 BP 139/54 L 09/13/16 08:23 Pulse Ox 95 09/13/16 08:23 - Labs Result Diagrams: 09/13/16 06:20 09/13/16 04:25 Labs: Laboratory Results - last 24 hr 09/11/16 09/12/16 09/12/16 11:30 11:33 15:49 WBC RBC Hgb Hct MCV MCH MCHC RDW Plt Count Sodium Potassium Chloride Carbon Dioxide Anion Gap BUN Creatinine Est GFR ( Amer) Est GFR (Non-Af Amer) POC Glucose (mg/dL) 139 H 130 H Random Glucose Calcium Phosphorus Magnesium Hep B Core Total Ab Non reactive 09/12/16 09/13/16 09/13/16 21:08 01:16 04:25 WBC RBC Hgb Hct MCV MCH MCHC RDW Plt Count Sodium 140 142 Potassium 3.9 3.7 Chloride 106 109 H Carbon Dioxide 22 22 Anion Gap 16 15 BUN 16 16 Creatinine 1.2 1.2 Est GFR ( Amer) 54 54 Est GFR (Non-Af Amer) 45 45 POC Glucose (mg/dL) 125 H Random Glucose 130 H 107 H Calcium 8.7 8.3 L Phosphorus 2.6 Magnesium 1.2 L Hep B Core Total Ab 09/13/16 09/13/16 05:29 06:20 WBC 9.9 RBC 4.09 Hgb 12.2 Hct 36.5 MCV 89.1 D MCH 29.7 MCHC 33.3 RDW 13.4 Plt Count 262 Sodium Potassium Chloride Carbon Dioxide Anion Gap BUN Creatinine Est GFR ( Amer) Est GFR (Non-Af Amer) POC Glucose (mg/dL) 105 Random Glucose Calcium Phosphorus Magnesium Hep B Core Total Ab Assessment & Plan (1) Abnormal EKG Assessment and Plan: The eKGs from last night show 2* Degree AV Block ( Mobitz I ) Kristen No Tx necessary Pt is back in NSR at present Will Follow Status: Resolved
--- NOTE | 2016-09-13 11:33 | CP.PCM.PN ---
Subjective - Date & Time of Evaluation Date of Evaluation: 09/13/16 Time of Evaluation: 11:30 - Subjective Subjective: Follow up Nephrology Consultation Note Assessment: Acute Kidney Injury improved (cr 1.2) and acidosis resolved Hypokalemia DM and HTN Liver mass s/p biopsy Plan HTN control: may resume her home meds as atenolol Glycemic control Further work up for liver mass as per primary team d/w daughter bedside Thanks for allowing me to participate in care of your patient. Pt to follow in office with us 1-2 weeks after discharge. Please call if any Qs Dr Rickey Morataya Office: [phone] Subjective: Noted events overnight. Patients feels okay. Denies chest pain, palpitation, shortness of breath, leg swelling. improved appetite. plan for colonoscopy today. had liver biopsy Physical Examination: General Appearance: Comfortable, in no acute respiratory distress, co- operative. Vitals reviewed and noted as below Lungs: Normal respiratory rate/effort. Breath sounds bilateral equal and clear Heart: Normal rate. s1s2 normal. No rub or gallop. Extremities: no edema. Neurological: Patient is alert, awake and oriented to person, place and time. No focal deficit. Strength bilateral appropriate and equal Skin: Warm and dry. Normal turgor. No rash. Palpitation: Normal elasticity for age Abdomen: Abdomen is soft. Bowel sounds +. There is no abdominal tenderness, no guarding/rigidity or organomegaly : kidney or bladder not palpable Labs/imaging reviewed. Past medical history, past surgical history, family history, social history, allergy reviewed Objective - Vital Signs/Intake and Output Vital Signs (last 24 hours): Temp Pulse Resp BP Pulse Ox 98.3 F 56 L 18 139/54 L 95 09/13/16 08:23 09/13/16 09:00 09/13/16 08:23 09/13/16 08:23 09/13/16 08:23 Intake and Output: 09/13/16 09/13/16 06:59 18:59 Output Total 2650 Balance -2650 - Medications Medications: Current Medications Acetaminophen (Tylenol 325mg Tab) 650 mg PO Q6 PRN PRN Reason: Pain, Mild (1-3) Acetaminophen (Tylenol 325mg Tab) 650 mg PO Q6 PRN PRN Reason: Fever >100.4 F Last Admin: 09/11/16 22:22 Dose: 650 mg Amlodipine Besylate (Norvasc) 5 mg PO DAILY [facility] Last Admin: 09/13/16 09:11 Dose: Not Given Heparin Sodium (Porcine) (Heparin) 5,000 units SC Q12 [facility] PRN Reason: Protocol Last Admin: 09/12/16 08:26 Dose: 5,000 units Fluconazole (Diflucan Iv 100 Mg/50 Ml Ns) 50 mls @ 50 mls/hr IVPB DAILY [facility] Last Admin: 09/12/16 08:25 Dose: 50 mls/hr Metronidazole (Flagyl 500mg/100ml Ns) 100 mls @ 100 mls/hr IVPB Q8 [facility] Last Admin: 09/13/16 02:32 Dose: 100 mls/hr Sodium Chloride (Sodium Chloride 0.9%) 1,000 mls @ 100 mls/hr IV .Q10H [facility] Last Admin: 09/12/16 21:32 Dose: 100 mls/hr Piperacillin Sod/Tazobactam (Sod 3.375 gm/ Sodium Chloride) 100 mls @ 100 mls/ hr IVPB Q8 [facility] Last Admin: 09/13/16 09:14 Dose: 100 mls/hr Insulin Detemir (Levemir) 6 units SC HS [facility] Last Admin: 09/11/16 22:27 Dose: 6 units Insulin Human Lispro (Humalog) 0 units SC ACHS [facility] PRN Reason: Protocol Last Admin: 09/13/16 06:38 Dose: Not Given Ondansetron HCl (Zofran Inj) 4 mg IVP Q6 PRN PRN Reason: Nausea/Vomiting - Labs Labs: 09/13/16 06:20 09/13/16 04:25 PT 12.9 SECONDS (9.6-11.2) H 09/11/16 06:30 INR 1.24 (0.92-1.08) H 09/11/16 06:30 APTT 24.3 SECONDS (23.3-32.5) 09/11/16 06:30
[2016-09-13] MEDS ORDERED: Lactated Ringer's 500 ML IV ONE (12:11)
[2016-09-13] MEDS ORDERED: Propofol 10 mg/ml Inj (20 ML) ONE (13:14)
[2016-09-13] MEDS ORDERED: Midazolam 2 MG/2 ML VIAL ONE (13:14)
[2016-09-13] MEDS ORDERED: Etomidate 20 mg/10ml Inj IV ONE (13:14)
[2016-09-13] MEDS: Sodium Chloride 0.9% 1,000 ML IV SCH (16:00)
--- NOTE | 2016-09-13 18:25 | CARD ---
APPROVED REPORT EXAM: Two-dimensional and M-mode echocardiogram with Doppler and color Doppler. Other Information Quality : GoodRhythm : NSR 2D DIMENSIONS IVSd0.75 (0.7-1.1cm)LVDd4.52 (3.9-5.9cm) PWd0.74 (0.7-1.1cm)IVSs1.22 (0.8-1.2cm) LVDs2.97 (2.5-4.0cm)FS (%) 34.2 % PWs1.37 (0.8-1.2cm)LVEF (%)60.0 (>50%) M-Mode DIMENSIONS Left Atrium (MM)3.90 (2.5-4.0cm)IVSd0.67 (0.7-1.1cm) Aortic Root3.10 (2.2-3.7cm)LVDd5.13 (4.0-5.6cm) Aortic Cusp Exc.1.60 (1.5-2.0cm)PWd1.17 (0.7-1.1cm) IVSs1.33 cmFS (%) 41 % LVDs3.03 (2.0-3.8cm)PWs1.60 cm Aortic Valve AoV Peak Ttlrfsml675.0cm/sAoV VTI32.9cmAO Peak GR.9mmHg LVOT Peak Rnhhaeyi374.2cm/Lida Mean GR.5mmHg Mitral Valve MV E Ufyftiye81.1cm/sMV DECEL SFGN710ipMG A Pngdjsqt77.6cm/s MV PRR95grO/A ratio0.9MVA (PHT)3.63cm2 TDI Lateral E' Peak V8.72cm/sMedial E' Peak V5.54cm/sE/Lateral E'8.2 E/Medial E'12.8 Pulmonary Valve PV Peak Kpqltyqd82.6cm/s Tricuspid Valve TR Peak Kygbzjya35cs/sTR Peak Gr.1txOgWYVY86kdBs LEFT VENTRICLE The left ventricle is normal size. There is normal left ventricular wall thickness. The left ventricular function is normal. The left ventricular ejection fraction is - 65%. There is normal LV segmental wall motion. Transmitral Doppler flow pattern is Grade I-abnormal relaxation pattern. No left ventricle thrombus noted on this study. There is no ventricular septal defect visualized. There is no left ventricular aneurysm. There is no mass noted in the left ventricle. RIGHT VENTRICLE The right ventricle is normal size. There is normal right ventricular wall thickness. The right ventricular systolic function is normal. ATRIA The left atrium size is normal. There is no thrombus suspected in the left atrium. The right atrium size is normal. The interatrial septum is intact with no evidence for an atrial septal defect. AORTIC VALVE The aortic valve is normal in structure and function. No aortic regurgitation is present. There is no aortic valvular stenosis. There is no aortic valvular vegetation. MITRAL VALVE The mitral valve is normal in structure and function. There is no evidence of mitral valve prolapse. There is no mitral valve stenosis. Mitral regurgitation is mild. TRICUSPID VALVE The tricuspid valve is normal in structure and function. There is trace tricuspid regurgitation. Right ventricular systolic pressure is estimated at 15 mmHg. There is no tricuspid valve prolapse or vegetation. There is no tricuspid valve stenosis. PULMONIC VALVE The pulmonary valve is normal in structure and function. There is trace pulmonic valvular regurgitation. GREAT VESSELS The aortic root is normal in size. The IVC is normal in size and collapses >50% with inspiration. PERICARDIAL EFFUSION The pericardium appears normal. There is no pleural effusion. <Conclusion> The left ventricle is normal in size and wall thickness. The left ventricular function is normal. The left ventricular ejection fraction is - 65%. The left atrium, right ventricle and right atrium are normal in size. The mitral, aortic and tricuspid valces are normal. There is mild mitral regurgitation and trace tricuspid regurgitation.
[2016-09-13 23:55] LABS: LKM-1 Ab (IgG) <=20.0 U (<=20.0)
[2016-09-14] MEDS: Insulin Lispro (humaLOG) 100 Units/ml Inj SC SCH ×3 (00:11→12:30)
[2016-09-14] MEDS: Insulin Detemir 100 Units/ml Inj SC SCH (00:11)
[2016-09-14] MEDS: metroNIDAZOLE 500mg/100ml NS 100 ML IVPB SCH ×2 (00:12→09:13)
[2016-09-14] MEDS: Piperacillin/Tazobact 3.375 GM in Sodium Chloride 0.9% 100 ML IVPB SCH ×2 (01:45→09:15)
[2016-09-14] MEDS: Sodium Chloride 0.9% 1,000 ML IV SCH ×2 (01:49→12:15)
--- NOTE | 2016-09-14 10:29 | CP.PCM.PN ---
<Hilda Klein - Last Filed: 09/14/16 10:38> Subjective - Date & Time of Evaluation Date of Evaluation: 09/14/16 Time of Evaluation: 08:00 - Subjective Subjective: Pt seen and examined at bedside this morning, does not have any complaints. daugther and pt both aware of colonoscopy finding and liver biopsy finding; all questions answered. Nurses notes reviewed. Objective - Vital Signs/Intake and Output Vital Signs (last 24 hours): Temp Pulse Resp BP Pulse Ox 98.5 F 60 18 123/66 96 09/14/16 09:13 09/14/16 09:14 09/14/16 09:13 09/14/16 09:14 09/14/16 09:13 Intake and Output: 09/14/16 09/14/16 06:59 18:59 Output Total 1200 Balance -1200 - Medications Medications: Current Medications Acetaminophen (Tylenol 325mg Tab) 650 mg PO Q6 PRN PRN Reason: Pain, Mild (1-3) Acetaminophen (Tylenol 325mg Tab) 650 mg PO Q6 PRN PRN Reason: Fever >100.4 F Last Admin: 09/11/16 22:22 Dose: 650 mg Amlodipine Besylate (Norvasc) 5 mg PO DAILY [facility] Last Admin: 09/14/16 09:14 Dose: 5 mg Heparin Sodium (Porcine) (Heparin) 5,000 units SC Q12 [facility] PRN Reason: Protocol Last Admin: 09/12/16 08:26 Dose: 5,000 units Metronidazole (Flagyl 500mg/100ml Ns) 100 mls @ 100 mls/hr IVPB Q8 [facility] Last Admin: 09/14/16 09:13 Dose: 100 mls/hr Sodium Chloride (Sodium Chloride 0.9%) 1,000 mls @ 100 mls/hr IV .Q10H [facility] Last Admin: 09/14/16 01:49 Dose: 100 mls/hr Piperacillin Sod/Tazobactam (Sod 3.375 gm/ Sodium Chloride) 100 mls @ 100 mls/ hr IVPB Q8 [facility] Last Admin: 09/14/16 09:15 Dose: 100 mls/hr Insulin Detemir (Levemir) 6 units SC HS [facility] Last Admin: 09/14/16 00:11 Dose: 6 units Insulin Human Lispro (Humalog) 0 units SC ACHS [facility] PRN Reason: Protocol Last Admin: 09/14/16 06:43 Dose: Not Given Ondansetron HCl (Zofran Inj) 4 mg IVP Q6 PRN PRN Reason: Nausea/Vomiting - Labs Labs: 09/13/16 06:20 09/13/16 04:25 PT 12.9 SECONDS (9.6-11.2) H 09/11/16 06:30 INR 1.24 (0.92-1.08) H 09/11/16 06:30 APTT 24.3 SECONDS (23.3-32.5) 09/11/16 06:30 - Constitutional Appears: No Acute Distress - Head Exam Head Exam: NORMOCEPHALIC - Eye Exam Eye Exam: Normal appearance Pupil Exam: NORMAL ACCOMODATION - ENT Exam ENT Exam: Mucous Membranes Moist - Respiratory Exam Respiratory Exam: Clear to Ausculation Bilateral, NORMAL BREATHING PATTERN - Cardiovascular Exam Cardiovascular Exam: REGULAR RHYTHM, +S1, +S2 - GI/Abdominal Exam GI & Abdominal Exam: Soft, Normal Bowel Sounds. absent: Tenderness - Extremities Exam Extremities Exam: absent: Calf Tenderness, Pedal Edema - Neurological Exam Neurological Exam: Alert, Awake, Oriented x3 Assessment and Plan - Assessment and Plan (Free Text) Assessment: Patient is a 71yo female with PMHx significant for DM, HTN who presented to the ED with abdominal pain, diarrhea and acute renal failure. 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- Metastatic AdenoCa, awaiting final report -Oncology consulted -On Fluconazole - yeast on Ucx - UTI -Flagyl/Zosyn - colitis If patient is medically stable, from a GI standpoint, pt can be discharged home <Janina Prado MD - Last Filed: 09/14/16 13:58> Objective - Vital Signs/Intake and Output Vital Signs (last 24 hours): Temp Pulse Resp BP Pulse Ox 98.2 F 61 20 134/69 96 09/14/16 12:58 09/14/16 12:58 09/14/16 12:58 09/14/16 12:58 09/14/16 12:58 Intake and Output: 09/14/16 09/14/16 06:59 18:59 Output Total 1200 Balance -1200 - Medications Medications: Current Medications Acetaminophen (Tylenol 325mg Tab) 650 mg PO Q6 PRN PRN Reason: Pain, Mild (1-3) Acetaminophen (Tylenol 325mg Tab) 650 mg PO Q6 PRN PRN Reason: Fever >100.4 F Last Admin: 09/11/16 22:22 Dose: 650 mg Amlodipine Besylate (Norvasc) 5 mg PO DAILY [facility] Last Admin: 09/14/16 09:14 Dose: 5 mg Heparin Sodium (Porcine) (Heparin) 5,000 units SC Q12 [facility] PRN Reason: Protocol Last Admin: 09/12/16 08:26 Dose: 5,000 units Metronidazole (Flagyl 500mg/100ml Ns) 100 mls @ 100 mls/hr IVPB Q8 [facility] Last Admin: 09/14/16 09:13 Dose: 100 mls/hr Sodium Chloride (Sodium Chloride 0.9%) 1,000 mls @ 100 mls/hr IV .Q10H [facility] Last Admin: 09/14/16 12:15 Dose: 100 mls/hr Piperacillin Sod/Tazobactam (Sod 3.375 gm/ Sodium Chloride) 100 mls @ 100 mls/ hr IVPB Q8 [facility] Last Admin: 09/14/16 09:15 Dose: 100 mls/hr Insulin Detemir (Levemir) 6 units SC HS [facility] Last Admin: 09/14/16 00:11 Dose: 6 units Insulin Human Lispro (Humalog) 0 units SC ACHS [facility] PRN Reason: Protocol Last Admin: 09/14/16 12:30 Dose: 1 units Ondansetron HCl (Zofran Inj) 4 mg IVP Q6 PRN PRN Reason: Nausea/Vomiting - Labs Labs: 09/13/16 06:20 09/13/16 04:25 PT 12.9 SECONDS (9.6-11.2) H 09/11/16 06:30 INR 1.24 (0.92-1.08) H 09/11/16 06:30 APTT 24.3 SECONDS (23.3-32.5) 09/11/16 06:30 Attending/Attestation - Attestation I have personally seen and examined this patient.: Yes I have fully participated in the care of the patient.: Yes I have reviewed all pertinent clinical information, including history, physical exam and plan: Yes Notes (Text): 09/14/16 13:55 Patient seen on GI rounds this am. This is a 71 yr old female with PMHx significant for DM, HTN who presented to the ED with abdominal pain, diarrhea and acute renal failure and concern for liver lesion s/p biopsy (prelim showing metastatic adeno CA ) and colon thickening on CT scan. She is s/p Colonoscopy showing 10 cms semi circumferential mass in recto sigmoid going proximally. s/p biopsy. Pending pathology. Had long discussion with daughter this am discussing metastatic colon CA to liver. Discussed to make arrangements to see oncologist and colo rectal surgery. Daughter does not want patient to know results right now. Gave appointment to see me on September 25 at 1 pm in [facility] for biopsy results and to coordinate appointments with Colorectal surgeon and oncologist. Discussed with Dr Webber 09/14/16 13:58
--- NOTE | 2016-09-14 11:03 | CP.PCM.DIS ---
Provider - Provider Date of Admission: 09/05/16 14:28 Attending physician: Mukund Fontana MD Consults: GI: Dr Prado Cardio: Dr Mckeon ID: DR [id number] Nephro: Dr Negron Time Spent in preparation of Discharge (in minutes): 45 Diagnosis - Discharge Diagnosis (1) Sepsis Status: Acute (2) Acute renal failure Status: Acute (3) Liver lesion Status: Acute (4) Colonic thickening Status: Acute (5) Colitis Status: Acute (6) DM2 (diabetes mellitus, type 2) Status: Chronic (7) Dehydration Status: Acute (8) Lung nodule < 6cm on CT Status: Acute (9) Colonic mass Status: Acute (10) Yeast UTI Status: Acute (11) DVT prophylaxis Status: Acute Hospital Course - Lab Results Lab Results: Micro Results 09/07/16 09:20 Stool Ova and Parasite Concentrate Exam - Final 09/06/16 10:17 Stool Stool Culture - Final NO SALMONELLA, SHIGELLA OR CAMPYLOBACTER ISOLATED. Most Recent Lab Values WBC 9.9 K/uL (4.8-10.8) 09/13/16 06:20 RBC 4.09 Mil/uL (3.80-5.20) 09/13/16 06:20 Hgb 12.2 g/dL (12.0-16.0) 09/13/16 06:20 Hct 36.5 % (34.0-47.0) 09/13/16 06:20 MCV 89.1 fl (81.0-99.0) D 09/13/16 06:20 MCH 29.7 pg (27.0-31.0) 09/13/16 06:20 MCHC 33.3 g/dL (33.0-37.0) 09/13/16 06:20 RDW 13.4 % (11.5-14.5) 09/13/16 06:20 Plt Count 262 K/uL (130-400) 09/13/16 06:20 MPV 8.2 fl (7.2-11.7) 09/12/16 09:00 Neut % (Auto) 73.6 % (50.0-75.0) 09/12/16 09:00 Lymph % (Auto) 15.0 % (20.0-40.0) L 09/12/16 09:00 [place] % (Auto) 7.4 % (0.0-10.0) 09/12/16 09:00 Eos % (Auto) 2.7 % (0.0-4.0) 09/12/16 09:00 Baso % (Auto) 1.3 % (0.0-2.0) 09/12/16 09:00 Neut # 9.1 K/uL (1.8-7.0) H 09/12/16 09:00 Lymph # 1.8 K/uL (1.0-4.3) 09/12/16 09:00 [place] # 0.9 K/uL (0.0-0.8) H 09/12/16 09:00 Eos # 0.3 K/uL (0.0-0.7) 09/12/16 09:00 Baso # 0.2 K/uL (0.0-0.2) 09/12/16 09:00 Neutrophils % (Manual) 65 % (42-75) 09/10/16 05:20 Band Neutrophils % 16 % (0-2) H* 09/05/16 12:09 Lymphocytes % (Manual) 16 % (20-50) L 09/10/16 05:20 Monocytes % (Manual) 13 % (0-10) H 09/10/16 05:20 Eosinophils % (Manual) 4 % (0-7) 09/10/16 05:20 Basophils % (Manual) 2 % (0-2) 09/10/16 05:20 Platelet Estimate Normal (NORMAL) 09/10/16 05:20 Large Platelets Present 09/10/16 05:20 Poikilocytosis (manual Slight 09/10/16 05:20 Anisocytosis (manual) Slight 09/10/16 05:20 Tear Drop Cells Slight 09/10/16 05:20 PT 12.9 SECONDS (9.6-11.2) H 09/11/16 06:30 INR 1.24 (0.92-1.08) H 09/11/16 06:30 APTT 24.3 SECONDS (23.3-32.5) 09/11/16 06:30 pCO2 27 mm/Hg (35-45) L 09/06/16 12:45 pO2 126 mm/Hg (80-100) H 09/06/16 12:45 HCO3 10.0 mmol/L (21-28) L 09/06/16 12:45 ABG pH 7.12 (7.35-7.45) L* 09/06/16 12:45 ABG Total CO2 9.6 mmol/L (22-28) L 09/06/16 12:45 ABG O2 Saturation 98.4 % (95-98) H 09/06/16 12:45 ABG O2 Content 16.9 ML/dL (15-23) 09/06/16 12:45 ABG Base Excess -19.1 mmol/L (-2.0-3.0) L 09/06/16 12:45 ABG Hemoglobin 12.3 g/dL (11.7-17.4) 09/06/16 12:45 ABG Carboxyhemoglobin 0.8 % (0.5-1.5) 09/06/16 12:45 POC ABG HHb (Measured) 1.6 % (0.0-5.0) 09/06/16 12:45 ABG Methemoglobin 1.1 % (0.0-3.0) 09/06/16 12:45 ABG O2 Capacity 17.2 mL/dL (16-24) 09/06/16 12:45 Ramu Test Yes 09/06/16 12:45 ABG Potassium 4.0 mmol/L (3.6-5.2) 09/05/16 12:50 A-a O2 Difference 11.0 mm/Hg 09/06/16 12:45 Hgb O2 Saturation 96.5 % (95.0-98.0) 09/06/16 12:45 Sodium 128.0 mmol/L (132-148) L 09/05/16 12:50 Chloride 103.0 mmol/L (98-107) 09/05/16 12:50 Glucose 149 mg/dL (65-105) H 09/05/16 12:50 Lactate 2.2 mmol/L (0.7-2.1) H 09/05/16 12:50 FiO2 24.0 % 09/06/16 12:45 Crit Value Called To Rosalia gonzalez 09/06/16 12:45 Crit Value Called By Natasha 09/06/16 12:45 Crit Value Read Back Y 05/03/17 12:45 Blood Gas Notified Time 1300 09/06/16 12:45 Sodium 142 mmol/l (132-148) 09/13/16 04:25 Potassium 3.7 MMOL/L (3.6-5.0) 09/13/16 04:25 Chloride 109 mmol/L (98-107) H 09/13/16 04:25 Carbon Dioxide 22 mmol/L (22-30) 09/13/16 04:25 Anion Gap 15 (10-20) 09/13/16 04:25 BUN 16 mg/dl (7-17) 09/13/16 04:25 Creatinine 1.2 mg/dL (0.7-1.2) 09/13/16 04:25 Est GFR ( Amer) 54 09/13/16 04:25 Est GFR (Non-Af Amer) 45 09/13/16 04:25 POC Glucose (mg/dL) 96 mg/dL (65-110) 09/14/16 05:59 Random Glucose 107 mg/dL (65-105) H 09/13/16 04:25 Hemoglobin A1c 7.2 % (4.2-6.5) H 09/06/16 05:30 Lactic Acid 1.6 MMOL/L (0.7-2.1) 09/05/16 16:45 Uric Acid 7.7 mg/Dl (2.2-7.5) H 09/07/16 09:25 Calcium 8.3 mg/dL (8.4-10.2) L 09/13/16 04:25 Phosphorus 2.6 mg/dl (2.5-4.5) 09/13/16 01:16 Magnesium 1.2 MG/DL (1.6-2.3) L 09/13/16 01:16 Iron 20 ug/dL (37-170) L 09/06/16 12:05 TIBC 196 ug/dL (250-450) L 09/06/16 12:05 % Saturation 10 % (20-55) L 09/06/16 12:05 Ferritin 40.4 ng/mL 09/06/16 12:05 Total Bilirubin 0.9 mg/dl (0.2-1.3) 09/12/16 09:00 AST 52 U/L (14-36) H 09/12/16 09:00 ALT 41 U/L (9-52) 09/12/16 09:00 Alkaline Phosphatase 166 U/L (38-126) H 09/12/16 09:00 Lactate Dehydrogenase 970 U/L (313-618) H 09/07/16 09:25 Total Creatine Kinase 86 U/L (30-135) 09/07/16 09:25 Troponin I 0.0340 ng/mL (0.00-0.120) 09/06/16 16:33 Total Protein 6.4 G/DL (6.3-8.2) 09/12/16 09:00 Albumin 3.2 g/dL (3.5-5.0) L 09/12/16 09:00 Globulin 3.2 gm/dL (2.2-3.9) 09/12/16 09:00 Albumin/Globulin Ratio 1.0 (1.0-2.1) 09/12/16 09:00 Alpha Fetoprotein < 0.8 IU/mL (0.0-7.22) 09/06/16 12:05 Carcinoembryonic Ag 199.0 ng/mL (0-3.0) H 09/14/16 06:45 TSH 3rd Generation 0.69 mIU/ML (0.46-4.68) 09/06/16 05:30 Arterial Blood Potassium 4.0 mmol/L (3.6-5.2) 09/05/16 12:50 Urine Color Yellow (YELLOW) 09/06/16 12:35 Urine Clarity Cloudy (Clear) 09/06/16 12:35 Urine pH 5.0 (5.0-8.0) 09/06/16 12:35 Ur Specific [place] 1.015 (1.003-1.030) 09/06/16 12:35 Urine Protein 30 mg/dL (NEGATIVE) 09/06/16 12:35 Urine Glucose (UA) Neg mg/dL (Normal) 09/06/16 12:35 Urine Ketones Negative mg/dL (NEGATIVE) 09/06/16 12:35 Urine Blood Small (NEGATIVE) 09/06/16 12:35 Urine Nitrate Negative (NEGATIVE) 09/06/16 12:35 Urine Bilirubin Negative (NEGATIVE) 09/06/16 12:35 Urine Urobilinogen 0.2-1.0 mg/dL (0.2-1.0) 09/06/16 12:35 Ur Leukocyte Esterase Neg Nini/uL (Negative) 09/06/16 12:35 Urine RBC (Auto) 3 /hpf (0-3) 09/06/16 12:35 Urine WBC Clumps (Auto) Few /hpf (NONE) H 09/06/16 12:35 Urine Microscopic WBC 7 /hpf (0-5) H 09/06/16 12:35 Urine Bacteria Occ (<OCC) H 09/06/16 12:35 Urine Yeast (Budding) Many /hpf (NEGATIVE) H 09/06/16 12:35 Urine Eosinophils Negative (NEGATIVE) 09/07/16 17:28 Urine Osmolality 335 mosm/kg (300-1000) 09/06/16 17:12 IgG 821.8 mg/dL (700.0-1600.0) 09/06/16 12:05 IgA 327.8 mg/dL (70.0-400.0) 09/06/16 12:05 IgM 80.0 mg/dL (40.0-230.0) 09/06/16 12:05 ESAU Screen Negative (Negative) 09/06/16 12:05 ESAU Titer TEST NOT PERFORMED 09/06/16 12:05 ESAU Titer 2 TEST NOT PERFORMED 09/06/16 12:05 ESAU Pattern TEST NOT PERFORMED 09/06/16 12:05 ESAU Pattern 2 TEST NOT PERFORMED 09/06/16 12:05 Anti-Mitochondrial Ab Negative (Negative) 09/06/16 12:05 Anti-Smooth Muscle Ab Negative (Negative) 09/06/16 12:05 Liver/Kid Microsomes Ab <=20.0 U (<=20.0) 09/11/16 11:30 C. difficile Ag & Toxin Negative (NEGATIVE) 09/06/16 09:20 Hepatitis A IgM Ab Nonreactive (Nonreactive) 09/06/16 12:05 Hepatitis A Ab Total Reactive (Nonreactive) H 09/06/16 12:05 Hep Bs Antigen Negative (NEGATIVE) 09/06/16 12:05 Hep Bs Antibody Negative (NEGATIVE) 09/06/16 12:05 Hep B Core Total Ab Non reactive (Non Reactive) 09/11/16 11:30 Hep B Core IgM Ab Negative (NEGATIVE) 09/06/16 12:05 Hepatitis C Antibody Negative (NEGATIVE) 09/06/16 12:05 - Hospital Course Hospital Course: 71 y/o lady with hx of HTN, DM, visiting from [facility] , was brought in because of weakness, fever, diarrhea, N/V.Patient was found to have elevated WBC 17 , fever, elevated lactic acid and renal failure. She was admitted with diagnosis if sepsis , started on IVF and IV zosyn. ID, GI and nephrology were consulted. CT abdomen showed Large slightly low-attenuation mass lesions in the right liver lobe suspicious for neoplasm, may represent liver metastasis. Suspicious mass lesion or wall thickening at the rectum and hepatic flexure. Liver Biopsy pathology: Metastatic Adenocarcinoma Sepsis prob sec to GI infection Pt came in febrile with diarrhea, with elevated WBC and lactic acid was hypotensive however improved with IVF hydration received IV Zosyn, Flagyl and Diflucan Blood cx with no growth and urine cx positive for multiple species ID consult appreciated and followed Acute renal failure prob sec to Dehydration and Sepsis Metabolic Acidosis sec to RF Renal function improved with IVF . BUN / Cr improved to normal Nephrology consult appreciated Sodium Bicarb given for Metabolic acidosis- d/c Bicarb tabs Renal US showed normal echogenecity and size , no obstruction started low dose Renagel for elevated Phos- off Renagel Liver lesion , metastatic AdenoCA unable to do Triple Phase CT due to MIGUEL MRI of abdomen : liver masses suspicious for malignancy CT guided BX by IR done 09/11- pathology discussed with Dr Jay- she said looks like Metastatic AdenoCA GI consulted- did Colonoscopy w/c showed Colon Mass, mass was biopsied Discussed case with Dr Prado- rec to d/c pt home , she will see pt at the GI clinic September 25 at 1 pm and will do further work up- CT of chest , Bone scan etc and will refer pt to Surgery and Oncology as outpt Colonic Mass GI consulted- Colonoscopy done showed Colon mass- biopsy done-pt to ff up with GI as outpt for further tx Colitis Pt came with fever, abd pain, diarrhea and N/V Stool c/s with no growth OVA parasite- negative on IV Zosyn, Flagyl and Diflucan DM2 (diabetes mellitus, type 2) Chronic accucheck with coverage started low dose Levemir - cont NPH at home diabetic , renal diet d/c Metformin due to recent renal failure Lung nodule < 6cm on CT will need rpt CT as outpt Yeast UTI final urine cx positive for multiple species yeast in UA Discussed with Dr herron and started on Diflucan , completed #11/10- Tachycardia, A fib ruled out Cardio consulted- rhythm not A fib accdg to Dr Mckeon Echo : normal EF DVT prophylaxis Heparin Discharge Exam - Head Exam Head Exam: ATRAUMATIC, NORMAL INSPECTION, NORMOCEPHALIC - Eye Exam Eye Exam: EOMI, Normal appearance Pupil Exam: NORMAL ACCOMODATION - ENT Exam ENT Exam: Mucous Membranes Moist, Normal External Ear Exam - Neck Exam Neck exam: Full Rom - Respiratory Exam Respiratory Exam: NORMAL BREATHING PATTERN. absent: Respiratory Distress - Cardiovascular Exam Cardiovascular Exam: REGULAR RHYTHM, +S1, +S2 - GI/Abdominal Exam GI & Abdominal Exam: Normal Bowel Sounds, Soft. absent: Tenderness - Extremities Exam Extremities exam: full ROM, normal capillary refill, pedal pulses present - Back Exam Back exam: FULL ROM. absent: CVA tenderness (L), CVA tenderness (R) - Neurological Exam Neurological exam: Alert, CN II-XII Intact, Normal Gait, Oriented x3, Reflexes Normal - Psychiatric Exam Psychiatric exam: Normal Affect, Normal Mood - Skin Skin Exam: Dry, Normal Color, Warm Discharge Plan - Follow Up Plan Condition: GOOD Disposition: HOME/ ROUTINE Instructions: Sepsis (GEN), Pulmonary Nodules (DC) Additional Instructions: appt FP clinic mar appt with Dr Prado at the GI clinic September 25 at 1pm Further work up , Oncology and Surgery consult will be done as outpt- Dr Prado will refer pt Referrals: [facility] [Outside]
--- NOTE | 2016-09-14 12:05 | CP.PCM.PN ---
Subjective - Date & Time of Evaluation Date of Evaluation: 09/14/16 Time of Evaluation: 12:00 - Subjective Subjective: Comfortable in bed No complaints reported Objective - Vital Signs/Intake and Output Vital Signs (last 24 hours): Temp Pulse Resp BP Pulse Ox 98.5 F 60 18 123/66 96 09/14/16 09:13 09/14/16 09:14 09/14/16 09:13 09/14/16 09:14 09/14/16 09:13 Intake and Output: 09/14/16 09/14/16 06:59 18:59 Output Total 1200 Balance -1200 - Medications Medications: Current Medications Acetaminophen (Tylenol 325mg Tab) 650 mg PO Q6 PRN PRN Reason: Pain, Mild (1-3) Acetaminophen (Tylenol 325mg Tab) 650 mg PO Q6 PRN PRN Reason: Fever >100.4 F Last Admin: 09/11/16 22:22 Dose: 650 mg Amlodipine Besylate (Norvasc) 5 mg PO DAILY [facility] Last Admin: 09/14/16 09:14 Dose: 5 mg Heparin Sodium (Porcine) (Heparin) 5,000 units SC Q12 PRETTY PRN Reason: Protocol Last Admin: 09/12/16 08:26 Dose: 5,000 units Metronidazole (Flagyl 500mg/100ml Ns) 100 mls @ 100 mls/hr IVPB Q8 [facility] Last Admin: 09/14/16 09:13 Dose: 100 mls/hr Sodium Chloride (Sodium Chloride 0.9%) 1,000 mls @ 100 mls/hr IV .Q10H [facility] Last Admin: 09/14/16 01:49 Dose: 100 mls/hr Piperacillin Sod/Tazobactam (Sod 3.375 gm/ Sodium Chloride) 100 mls @ 100 mls/ hr IVPB Q8 [facility] Last Admin: 09/14/16 09:15 Dose: 100 mls/hr Insulin Detemir (Levemir) 6 units SC HS [facility] Last Admin: 09/14/16 00:11 Dose: 6 units Insulin Human Lispro (Humalog) 0 units SC ACHS PRETTY PRN Reason: Protocol Last Admin: 09/14/16 06:43 Dose: Not Given Ondansetron HCl (Zofran Inj) 4 mg IVP Q6 PRN PRN Reason: Nausea/Vomiting - Labs Labs: 09/13/16 06:20 09/13/16 04:25 PT 12.9 SECONDS (9.6-11.2) H 09/11/16 06:30 INR 1.24 (0.92-1.08) H 09/11/16 06:30 APTT 24.3 SECONDS (23.3-32.5) 09/11/16 06:30 - Respiratory Exam Additional comments: Lungs clear - Cardiovascular Exam Cardiovascular Exam: REGULAR RHYTHM - Extremities Exam Additional comments: No edema Assessment and Plan - Assessment and Plan (Free Text) Assessment: MIGUEL resolved S/P sepsis DM Plan: Continue current Mx . Continue to monitor renal function
[2016-09-14 16:26] VITALS: BP 100/62; PULSE 73; RESP 18; TEMP 97.8; O2SAT 98
== END 2016-09-14 16:50 | disposition home or self-care (01) | DRG 584 ==
LOC: H.ER 09:56 → H.ERHOLD 14:28 → H.TEL 19:10
PROC: 0FB13ZX Excision of Right Lobe Liver, Percutaneous Approach, Diagnostic (ICD-10-PCS; principal; 2016-09-11 12:00)
PROC: 0DBN8ZZ Excision of Sigmoid Colon, Via Natural or Artificial Opening Endoscopic (ICD-10-PCS; 2016-09-13)
PROC: 0DBN8ZX Excision of Sigmoid Colon, Via Natural or Artificial Opening Endoscopic, Diagnostic (ICD-10-PCS; 2016-09-13)
DX: A41.9 Sepsis, unspecified organism (principal); N17.0 Acute kidney failure with tubular necrosis; E87.2 Acidosis; E11.22 Type 2 diabetes mellitus with diabetic chronic kidney disease; C78.7 Secondary malignant neoplasm of liver and intrahepatic bile duct; C19 Malignant neoplasm of rectosigmoid junction; I44.1 Atrioventricular block, second degree; E11.65 Type 2 diabetes mellitus with hyperglycemia; B37.49 Other urogenital candidiasis; N18.9 Chronic kidney disease, unspecified; E87.6 Hypokalemia; E86.0 Dehydration; E86.1 Hypovolemia; E78.00 Pure hypercholesterolemia, unspecified; I12.9 Hypertensive chronic kidney disease with stage 1 through stage 4 chronic kidney disease, or unspecified chronic kidney disease; K52.9 Noninfective gastroenteritis and colitis, unspecified; R91.1 Solitary pulmonary nodule; K64.8 Other hemorrhoids; Z79.4 Long term (current) use of insulin